=== PATIENT | male | born 1955 | race Caucasian/White ===

== ENCOUNTER → 2019-10-03 | Outpatient (CLI) | payer MEDICARE ==
--- NOTE | 2019-10-03 09:23 | US ---
EXAMINATION TYPE: US scrotum with doppler. Grayscale and color Doppler Duplex imaging performed of t he scrotum. DATE OF EXAM: 10/03/2019 COMPARISON: NONE CLINICAL HISTORY: R97.20 elevated prostate specific antigen, N45.1. on and off pain, no swelling EXAM MEASUREMENTS: TESTICLES: Right Testicle: 2.4 x 3.1 x 2.4 cm Left Testicle: 5.5 x 3.3 x 2.3 cm EPIDIDYMIS HEAD: Right Epididymis: 1.3 cm Left Epididymis: 1.7 cm Doppler performed to assess for testicular vascularity; good bilateral color flow and waveforms are s een. There is no evidence of testicular torsion. Presence of hydroceles: mild fluid noted lateral to bilateral testicles Presence of varicoceles: no IMPRESSION: Trace bilateral hydroceles, otherwise unremarkable exam.
--- NOTE | 2019-10-03 09:28 | US ---
EXAMINATION TYPE: US prostate transrectal DATE OF EXAM: 10/03/2019 COMPARISON: NONE CLINICAL HISTORY: R97.20 elevated prostate specific antigen, N45.1. enlarged gland on digital exam, P SA jumps from 8.7 to 12.7, difficulty with flow, has tried meds but no change This examination was performed using the transrectal probe. EXAM MEASUREMENTS: Gland Size: 5.8 x 5.9 x 5.0cm Volume: 89.9ml Predicted PSA: 10.8 Actual PSA (if available):12.7 Enlarged gland with heterogeneous PZ gland with no discrete focal abnormality noted, IMPRESSION: Enlarged and diffusely heterogenous prostate gland in keeping with benign prostatic hype rplasia. No focal suspicious sonographic mass. Considering the elevated PSA MRI prostate could be con sidered as it is a more sensitive exam for prostate carcinoma. Predicted PSA = volume x 0.12 ng/ml Calculated Volume = 0.5236 x L x W x H
== END | disposition home or self-care (01) ==
LOC: RADUSWWP 06:50
PROVIDERS: ATTEND Internal Medicine
DX: N45.1 Epididymitis (principal); N40.0 Benign prostatic hyperplasia without lower urinary tract symptoms; R97.20 Elevated prostate specific antigen [PSA]
CPT/HCPCS: 76870; 76872; 93975

== ENCOUNTER 2021-12-23 16:04 | Inpatient (IN) | payer MEDICARE ==
[2021-12-23] MEDS ORDERED: HYDROmorphone 0.5 MG/0.5 ML SYRINGE IVP STA (19:14)
[2021-12-23] MEDS ORDERED: SODIUM CHLORIDE 0.9% 500 ML 500 ML IV STA (19:14)
[2021-12-23] MEDS ORDERED: DILTIAZEM DRIP BOLUS FROM BAG 1 MG SOLN IV ONE (19:16)
--- NOTE | 2021-12-23 19:19 | ED ---
General Adult HPI - General Chief complaint: Abdominal Pain Stated complaint: Abd pain Time Seen by Provider: 12/23/21 19:00 Source: patient, RN notes reviewed, old records reviewed Mode of arrival: ambulatory Limitations: no limitations - History of Present Illness Initial comments: 66-year-old male presents with complaints of 2 weeks of diffuse abdominal pain worse right lower quadrant. He states he has had chills but no documented fever. He states he has had diarrhea every day, brown in color, denies any hematochezia or hematemesis. Patient denies any previous abdominal surgeries. He has no chest pain or difficulty in breathing. He does have a history of COPD, hypertension and enlarged prostate. -: week(s) (2) Location: abdomen Radiation: non-radiation Severity scale (1-10): 6 Quality: sharp, other (cramping) Consistency: intermittent Improves with: none Worsens with: none Associated Symptoms: fever/chills, nausea/vomiting, other (diarrhea) Treatments Prior to Arrival: none - Related Data Home Medications Medication Instructions Recorded Confirmed Albuterol Sulfate [Proair Hfa] 2 puff INHALATION RT-QID PRN 12/23/21 12/23/21 Atorvastatin Calcium [Lipitor] 20 mg PO DAILY 12/23/21 12/23/21 Fluticasone Nasal [place] [Flonase 2 spray EA NOSTRIL DAILY 12/23/21 12/23/21 Nasal [place]] Fluticasone Propion/Salmeterol 1 puff INHALATION RT-BID 12/23/21 12/23/21 [Wixela 250-50 Inhub] Loratadine [Claritin] 10 mg PO DAILY 12/23/21 12/23/21 Tamsulosin HCl [Flomax] 0.4 mg PO DAILY 12/23/21 12/23/21 amLODIPine [Norvasc] 10 mg PO DAILY 12/23/21 12/23/21 lisinopriL 40 mg PO DAILY 12/23/21 12/23/21 Allergies Allergy/AdvReac Type Severity Reaction Status Date / Time No Known Allergies Allergy Verified 12/23/21 20:59 Review of Systems ROS Statement: Those systems with pertinent positive or pertinent negative responses have been documented in the HPI. ROS Other: All systems not noted in ROS Statement are negative. Past Medical History Past Medical History: Hyperlipidemia, Hypertension History of Any Multi-Drug Resistant Organisms: None Reported Past Surgical History: No Surgical Hx Reported Smoking Status: Former smoker Past Alcohol Use History: Daily Past Drug Use History: None Reported General Exam Limitations: no limitations General appearance: alert, in no apparent distress Head exam: Present: atraumatic Eye exam: Absent: scleral icterus, conjunctival injection, periorbital swelling ENT exam: Present: normal oropharynx, mucous membranes moist Respiratory exam: Absent: respiratory distress, accessory muscle use Cardiovascular Exam: Present: tachycardia, irregular rhythm (General fibrillation with rapid ventricular rate 141) GI/Abdominal exam: Present: soft, distended, tenderness (diffuse, worse right lower quadrant), hyperactive bowel sounds. Absent: guarding, rebound, rigid Extremities exam: Present: normal capillary refill. Absent: pedal edema Neurological exam: Present: alert, oriented X3 Psychiatric exam: Present: normal affect, normal mood Skin exam: Present: warm, dry, normal color. Absent: cyanosis, diaphoretic, pallor Course Vital Signs 12/23/21 12/23/21 12/23/21 16:25 19:24 20:45 Temperature 97.7 F Pulse Rate 60 156 H 113 H Respiratory 18 18 20 Rate Blood Pressure 107/53 100/70 114/77 O2 Sat by Pulse 96 96 97 Oximetry 12/23/21 12/23/21 21:24 22:00 Temperature Pulse Rate 110 H 82 Respiratory 22 20 Rate Blood Pressure 110/74 107/77 O2 Sat by Pulse 97 97 Oximetry - Reevaluation(s) Reevaluation #1: 12/23/21 19:57 Patient remains afebrile but RVR with a rate of 132. Increased Cardizem drip to 7.5 Time: 19:57 Reevaluation #2: 12/23/21 21:19 Patient's heart rate remains at 120 Cardizem drip increased. Patient states his abdominal pain has resolved at this time. Time: 21:19 EKG Findings - EKG Results: EKG shows: atrial fibrillation (Rapid ventricular rate of 141, QRS 0.89, QTC 0.364) Medical Decision Making - Medical Decision Making Patient presents with 2 weeks of abdominal pain with diarrhea. The patient was brought back to the room he was found to have a heart rate of 140. EKG was done and found to have A. fib with RVR. No history of A. fib Troponin was negative at 0.012, EKG shows A. fib with rate 141. Patient was started on heparin and Cardizem drip for rate control. There is no evidence of leukocytosis and hemoglobin and hematocrit are stable. CT the abdomen shows no aortic aneurysm. No osseous abnormalities. Hepatic steatosis, large prostate and gallstones noted. There is a 13 mm lucent area at L4 may represent a benign hemangioma. There is a 3 mm nonobstructing calculus on the right. Upon reassessment patient's abdomen states that the pain has resolved. Abdomen is soft nontender. His pain may have been related to cholelithiasis. Patient was admitted to the hospital for new onset A. fib. Case discussed with Dr. Coats. - Lab Data Result diagrams: 12/23/21 19:18 12/23/21 19:18 Lab Results 12/23/21 12/23/21 12/23/21 Range/Units 19:18 19:18 19:18 WBC 8.1 (3.8-10.6) k/uL RBC 5.34 (4.30-5.90) m/uL Hgb 17.0 (13.0-17.5) gm/dL Hct 50.9 (39.0-53.0) % MCV 95.3 (80.0-100.0) fL MCH 31.9 (25.0-35.0) pg MCHC 33.5 (31.0-37.0) g/dL RDW 11.8 (11.5-15.5) % Plt Count 146 L (150-450) k/uL MPV 7.2 Neutrophils % 82 % Lymphocytes % 10 % Monocytes % 5 % Eosinophils % 1 % Basophils % 1 % Neutrophils # 6.6 (1.3-7.7) k/uL Lymphocytes # 0.8 L (1.0-4.8) k/uL Monocytes # 0.4 (0-1.0) k/uL Eosinophils # 0.1 (0-0.7) k/uL Basophils # 0.1 (0-0.2) k/uL PT 12.0 (9.0-12.0) sec INR 1.1 (<1.2) APTT 29.8 (22.0-30.0) sec Sodium 136 L (137-145) mmol/L Potassium 4.3 (3.5-5.1) mmol/L Chloride 109 H (98-107) mmol/L Carbon Dioxide 17 L (22-30) mmol/L Anion Gap 10 mmol/L BUN 16 (9-20) mg/dL Creatinine 0.91 (0.66-1.25) mg/dL Est GFR (CKD-EPI)AfAm >90 (>60 ml/min/1.73 sqM) Est GFR (CKD-EPI)NonAf 86 (>60 ml/min/1.73 sqM) Glucose 107 H (74-99) mg/dL Plasma Lactic Acid Fredy (0.7-2.0) mmol/L Calcium 8.8 (8.4-10.2) mg/dL Total Bilirubin 1.8 H (0.2-1.3) mg/dL AST 130 H (17-59) U/L ALT 87 H (4-49) U/L Alkaline Phosphatase 85 (38-126) U/L Troponin I (0.000-0.034) ng/mL Total Protein 7.7 (6.3-8.2) g/dL Albumin 4.4 (3.5-5.0) g/dL Amylase 36 (30-110) U/L Lipase 141 (23-300) U/L 12/23/21 12/23/21 Range/Units 19:18 19:18 WBC (3.8-10.6) k/uL RBC (4.30-5.90) m/uL Hgb (13.0-17.5) gm/dL Hct (39.0-53.0) % MCV (80.0-100.0) fL MCH (25.0-35.0) pg MCHC (31.0-37.0) g/dL RDW (11.5-15.5) % Plt Count (150-450) k/uL MPV Neutrophils % % Lymphocytes % % Monocytes % % Eosinophils % % Basophils % % Neutrophils # (1.3-7.7) k/uL Lymphocytes # (1.0-4.8) k/uL Monocytes # (0-1.0) k/uL Eosinophils # (0-0.7) k/uL Basophils # (0-0.2) k/uL PT (9.0-12.0) sec INR (<1.2) APTT (22.0-30.0) sec Sodium (137-145) mmol/L Potassium (3.5-5.1) mmol/L Chloride (98-107) mmol/L Carbon Dioxide (22-30) mmol/L Anion Gap mmol/L BUN (9-20) mg/dL Creatinine (0.66-1.25) mg/dL Est GFR (CKD-EPI)AfAm (>60 ml/min/1.73 sqM) Est GFR (CKD-EPI)NonAf (>60 ml/min/1.73 sqM) Glucose (74-99) mg/dL Plasma Lactic Acid Fredy 1.1 (0.7-2.0) mmol/L Calcium (8.4-10.2) mg/dL Total Bilirubin (0.2-1.3) mg/dL AST (17-59) U/L ALT (4-49) U/L Alkaline Phosphatase (38-126) U/L Troponin I <0.012 (0.000-0.034) ng/mL Total Protein (6.3-8.2) g/dL Albumin (3.5-5.0) g/dL Amylase (30-110) U/L Lipase (23-300) U/L Critical Care Time Critical Care Time: Yes Total Critical Care Time: 35 (Patient was found to have new onset H fibrillation with a rate of 140. His rate increased to 160 during exam. Patient was started on a Cardizem drip and had to have multiple titrations to obtain rate control. He started on a heparin drip.) Disposition Clinical Impression: Atrial fibrillation with rapid ventricular response, Cholelithiasis Disposition: ADMITTED IP TO THIS HOSP Decision Date: 12/23/21 Decision Time: 20:52
[2021-12-23] MEDS ORDERED: HEPARIN SODIUM 1,000 UN/ML (10ML VL) IV ONE (19:24)
[2021-12-23] MEDS ORDERED: HEPARIN SODIUM 1,000 UN/ML (10ML VL) IV PRN (19:24)
[2021-12-23] MEDS: DILTIAZEM 125 MG in SODIUM CHLORIDE 0.9% 100 ML IV SCH (19:27)
[2021-12-23 19:32] LABS: Basophils # (A) 0.1 k/uL (0-0.2); Basophils % (A) 1 %; Eosinophils # (A) 0.1 k/uL (0-0.7); Eosinophils % (A) 1 %; HCT 50.9 % (39.0-53.0); Lymphocytes # (A) 0.8 k/uL (1.0-4.8); Lymphocytes % (A) 10 %; MCH 31.9 pg (25.0-35.0); MCHC 33.5 g/dL (31.0-37.0); MCV 95.3 fL (80.0-100.0); Mean Platelet Volume 7.2; Monocytes # (A) 0.4 k/uL (0-1.0); Monocytes % (A) 5 %; Neutrophils # (A) 6.6 k/uL (1.3-7.7); Neutrophils % (A) 82 %; Platelet Count 146 k/uL (150-450); RBC 5.34 m/uL (4.30-5.90); RDW 11.8 % (11.5-15.5); WBC 8.1 k/uL (3.8-10.6)
[2021-12-23] MEDS: HEPARIN SOD,PORK IN 0.45% NACL 25,000 UNIT in 0.45% NACL 1 250ML.BAG IV SCH (19:38)
[2021-12-23 19:46] LABS: INR 1.1 (<1.2); Partial Thromboplastin Time 29.8 sec (22.0-30.0)
[2021-12-23 19:48] LABS: ALT 87 U/L (4-49); AST 130 U/L (17-59); African American GFR (CKD) >90 (>60 ml/min/1.73 sqM); Albumin 4.4 g/dL (3.5-5.0); Alkaline Phosphatase 85 U/L (38-126); Amylase 36 U/L (30-110); Anion Gap 10 mmol/L; Blood Urea Nitrogen 16 mg/dL (9-20); Calcium 8.8 mg/dL (8.4-10.2); Carbon Dioxide 17 mmol/L (22-30); Chloride 109 mmol/L (98-107); Glucose 107 mg/dL (74-99); Lipase 141 U/L (23-300); Non-African American GFR(CKD) 86 (>60 ml/min/1.73 sqM); Potassium 4.3 mmol/L (3.5-5.1); Sodium 136 mmol/L (137-145); Total Bilirubin 1.8 mg/dL (0.2-1.3); Total Protein 7.7 g/dL (6.3-8.2)
--- NOTE | 2021-12-23 21:01 | CT ---
EXAMINATION TYPE: CT abdomen pelvis w con CT DLP: 1332.6 mGycm, Automated exposure control for dose reduction was used. DATE OF EXAM: 12/23/2021 8:42 PM COMPARISON: None. CLINICAL INDICATION:Male, 66 years old with history of abdominal pain; Generalized abdominal pain. TECHNIQUE: Standard CT of the abdomen and pelvis following the administration of 100 cc of Isovue 3 00 IV contrast material. Coronal and sagittal reformats were performed. FINDINGS: LOWER CHEST: Unremarkable ABDOMEN LIVER: Diffuse low-attenuation to the liver parenchyma. GALLBLADDER AND BILE DUCTS: Gallstone seen layering dependently. PANCREAS: Unremarkable. SPLEEN: Unremarkable. ADRENAL GLANDS: Unremarkable. KIDNEYS AND URETERS: No evidence of hydronephrosis. Nonobstructing calculus measuring 3 mm on the rig ht and 4 mm. The ureters are unremarkable. PELVIS BLADDER: Unremarkable REPRODUCTIVE: Prostate is enlarged in size measuring 5.9 cm in transverse dimension. ABDOMEN & PELVIS STOMACH AND BOWEL: No evidence of bowel obstruction. PERITONEUM: No evidence of pneumoperitoneum or free fluid. VASCULATURE: No evidence of aortic aneurysm. Mild atherosclerotic calcifications are present througho ut the abdominal aorta and its branches. MUSCULOSKELETAL: No acute osseous abnormalities. 13 mm lucent area within the L4 vertebral body. LYMPH NODES: No gross evidence for lymphadenopathy. SOFT TISSUE/ABDOMINAL WALL: Unremarkable IMPRESSION: 1. No evidence for acute intra-abdominal process to explain the patient's pain. 2. L4 lucent 13 mm area within the vertebral body. Comparisons with priors at outside institution ma y be of benefit for stability. 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 3. Cholelithiasis. 4. Hepatic steatosis. 5. Prostatomegaly correlate serum PSA.
[2021-12-23] MEDS ORDERED: METOPROLOL TARTRATE 5 MG/5 ML VIAL IVP STA (21:13)
[2021-12-23] MEDS ORDERED: ACETAMINOPHEN TAB 325 MG TAB PO PRN (21:26)
[2021-12-23] MEDS ORDERED: HYDROmorphone 0.5 MG/0.5 ML SYRINGE IVP PRN (21:26)
[2021-12-23] MEDS ORDERED: NALOXONE 0.4 MG/ML 1 ML VIAL IV PRN (21:26)
[2021-12-24] MEDS ORDERED: LORATADINE 10 MG TAB PO PRN (09:33)
[2021-12-24] MEDS ORDERED: FLUTICASONE 50MCG/SPRAY NASAL 16GM EA NOSTRIL PRN (09:34)
[2021-12-24] MEDS ORDERED: lisinopriL 20 MG TAB PO SCH ×2 (09:45→12:15)
[2021-12-24 10:02] LABS: Basophils % (A) 0 %; Eosinophils # (A) 0.1 k/uL (0-0.7); Eosinophils % (A) 2 %; HGB 15.8 gm/dL (13.0-17.5); Lymphocytes # (A) 0.7 k/uL (1.0-4.8); Lymphocytes % (A) 12 %; MCH 31.6 pg (25.0-35.0); MCHC 32.9 g/dL (31.0-37.0); MCV 96.2 fL (80.0-100.0); Mean Platelet Volume 7.3; Monocytes # (A) 0.3 k/uL (0-1.0); Monocytes % (A) 5 %; Neutrophils # (A) 4.7 k/uL (1.3-7.7); Neutrophils % (A) 79 %; Platelet Count 135 k/uL (150-450); RBC 4.99 m/uL (4.30-5.90); RDW 11.8 % (11.5-15.5); WBC 5.9 k/uL (3.8-10.6)
[2021-12-24 10:12] LABS: INR 1.1 (<1.2); Partial Thromboplastin Time 38.1 sec (22.0-30.0); Prothrombin Time 11.8 sec (9.0-12.0)
[2021-12-24] MEDS: ATORVASTATIN 20 MG TAB PO SCH (11:08)
[2021-12-24] MEDS: METOPROLOL SUCCINATE (ER) 25 MG TAB.ER.24H PO SCH ×2 (11:08→20:12)
[2021-12-24] MEDS: TAMSULOSIN 0.4 MG CAP.ER.24H PO SCH (11:08)
[2021-12-24] MEDS: amLODIPine 10 MG TAB PO SCH ×3 (11:08→17:29)
[2021-12-24] MEDS ORDERED: ALBUTEROL NEBULIZED 2.5 MG/3 ML INHALATION PRN (12:12)
--- NOTE | 2021-12-24 13:31 | ECHOF ---
Referral Reason:A. fib MEASUREMENTS -------- HEIGHT: 172.7 cm WEIGHT: 89.8 kg BP: 120/63 RVIDd: 3.6 cm (< 3.3) IVSd: 1.4 cm (0.6 - 1.1) LVIDd: 5.3 cm (3.9 - 5.3) LVPWd: 1.4 cm (0.6 - 1.1) IVSs: 1.8 cm LVIDs: 3.5 cm LVPWs: 1.8 cm LA Diam: 3.6 cm (2.7 - 3.8) LAESV Index (A-L): 19.71 ml/m Ao Diam: 4.1 cm (2.0 - 3.7) AV Cusp: 2.5 cm (1.5 - 2.6) MV EXCURSION: 20.651 mm (> 18.000) MV EF SLOPE: 49 mm/s (70 - 150) EPSS: 1.5 cm MV E Bunny: 0.72 m/s MV DecT: 281 ms MV A Bunny: 0.62 m/s MV E/A Ratio: 1.17 AV maxP.13 mmHg AV meanP.47 mmHg AR PHT: 834 ms RAP: 5.00 mmHg RVSP: 31.23 mmHg FINDINGS -------- Resting bradycardia (HR<60bpm). This was a technically adequate study. The left ventricular size is normal. There is moderate concentric left ventricular hypertrophy. O verall left ventricular systolic function is normal with, an EF between 60 - 65 %. The right ventricle is mildly enlarged. Normal LA size by volume 22+/-6 ml/m2. The right atrium is normal in size. Aneurysmal Interatrial septum. The aortic valve is bicuspid. There is mild aortic valve sclerosis. There is mild aortic regurgit ation. There is mild aortic stenosis present. Peak/mean gradient across the Aortic Valve is 18.13 mmHg / 6.47mmHg. The mitral valve is normal. Mild tricuspid regurgitation present. Right ventricular systolic pressure is normal at < 35 mmHg. Trace/mild (physiologic) pulmonic regurgitation. The aortic root is dilated measuring 4.1cm. Normal inferior vena cava with normal inspiratory collapse consistent with estimated right atrial pre ssure of 5 mmHg. There is no pericardial effusion. CONCLUSIONS -------- 1. The left ventricular size is normal. 2. There is moderate concentric left ventricular hypertrophy. 3. Overall left ventricular systolic function is normal with, an EF between 60 - 65 %. 4. The right ventricle is mildly enlarged. 5. Normal LA size by volume 22+/-6 ml/m2. 6. Aneurysmal Interatrial septum. 7. The aortic valve is bicuspid. 8. There is mild aortic valve sclerosis. 9. There is mild aortic regurgitation. 10. There is mild aortic stenosis present. 11. Peak/mean gradient across the Aortic Valve is 18.13mmHg / 6.47mmHg. 12. Mild tricuspid regurgitation present. 13. Trace/mild (physiologic) pulmonic regurgitation. 14. The aortic root is dilated measuring 4.1cm. 15. There is no pericardial effusion. PARTITION SETTER: Mira Frye RDCS
--- NOTE | 2021-12-24 14:25 | P.CRDCN ---
History of Present Illness Consult date: 12/24/21 History of present illness: This is a 66-year-old gentleman with history of hypertension and no history of any cardiac arrhythmias or coronary artery disease, basically came to the emergency room complaining of lower abdominal discomfort. It appears to be has been constant for the last 5 days. Patient hasn't been eating because of the pain hasn't had any bowel movement: since coming here patient was given medication with relief of some of the discomfort. Patient doesn't have any history of chest pain or shortness of breath. No complaints of any palpitation, dizziness or syncope. However, his EKG on admission showed evidence of atrial fibrillation with a rapid and corresponds. Patient was treated with IV Cardizem with conversion to sinus rhythm. Patient is on IV heparin. I'm going to initiate him on by mouth metoprolol and resume his lisinopril. Patient also to go on oral anticoagulant agent if cleared by primary care./Surgical consult regarding his abdominal pain. Echo Cardigan showed normal LV function without any significant valvular abnormalities. He patient has any recurrence of atrial fibrillation, may consider antiarrhythmic medication. We will also get thyroid function studies Review of Systems As per the chart Past Medical History Past Medical History: Hyperlipidemia, Hypertension History of Any Multi-Drug Resistant Organisms: None Reported Past Surgical History: No Surgical Hx Reported Smoking Status: Former smoker Past Alcohol Use History: Daily Past Drug Use History: None Reported Medications and Allergies Home Medications Medication Instructions Recorded Confirmed Type Albuterol Sulfate [Proair Hfa] 2 puff INHALATION RT-QID PRN 12/23/21 12/23/21 History Atorvastatin Calcium [Lipitor] 20 mg PO DAILY 12/23/21 12/23/21 History Fluticasone Nasal [place] [Flonase 2 spray EA NOSTRIL DAILY 12/23/21 12/23/21 History Nasal [place]] Fluticasone Propion/Salmeterol 1 puff INHALATION RT-BID 12/23/21 12/23/21 History [Wixela 250-50 Inhub] Loratadine [Claritin] 10 mg PO DAILY 12/23/21 12/23/21 History Tamsulosin HCl [Flomax] 0.4 mg PO DAILY 12/23/21 12/23/21 History amLODIPine [Norvasc] 10 mg PO DAILY 12/23/21 12/23/21 History lisinopriL 40 mg PO DAILY 12/23/21 12/23/21 History Allergies Allergy/AdvReac Type Severity Reaction Status Date / Time No Known Allergies Allergy Verified 12/23/21 20:59 Physical Exam Vitals: Vital Signs Temp Pulse Pulse Resp BP Pulse Ox 12/24/21 11:00 75 16 125/74 98 12/24/21 09:26 72 18 119/84 96 12/24/21 08:13 62 18 123/68 98 12/24/21 07:00 64 22 120/63 98 12/24/21 06:00 62 18 122/77 99 12/24/21 05:00 52 L 20 114/82 98 12/24/21 04:00 60 20 113/67 98 12/24/21 03:00 59 L 22 108/69 97 12/24/21 02:00 98.2 F 72 22 83/61 97 12/24/21 01:00 76 20 114/79 98 12/24/21 00:00 98.3 F 89 20 125/65 97 12/23/21 23:40 81 20 102/71 97 12/23/21 22:00 82 20 107/77 97 12/23/21 21:24 110 H 22 110/74 97 12/23/21 20:45 113 H 20 114/77 97 12/23/21 20:00 144 H 12/23/21 19:24 156 H 18 100/70 96 12/23/21 16:25 97.7 F 60 18 107/53 96 Intake and Output 12/23/21 12/24/21 12/24/21 22:59 06:59 14:59 Intake Total . 101.662 65.641 Balance 101.662 65.641 Intake: Intake, IV Titration 11. 101.662 65.641 Amount Diltiazem 125 mg In 11.7 28.125 Sodium Chloride 0.9% 100 ml @ 5 MG/HR 5 mls/hr IV .Q24H SHENG Rx#:[id number] Heparin Sod,Pork in 0.45% 73.537 65.641 NaCl 25,000 unit In 0.45 % NaCl 1 250ml.bag @ 11. 14 UNITS/KG/HR 10.005 mls /hr IV .Q24H SHENG Rx#: [id number] Other: Weight 89.811 kg GENERAL EXAM: Patient is alert and oriented and doesn't appear to be in any acute distress HEENT: Normocephalic. Normal reaction of pupils, equal size, normal range of extraocular motion. No erythema or exudates in the throat. NECK: No masses, no nuchal rigidity. CHEST: No chest wall deformity. LUNGS: Equal air entry with no crackles or wheeze. HEART: S1 and S2 normal with no audible mumurs or gallops. Regular rhythm, femorals equal on both sides.. ABDOMEN: No hepatosplenomegaly, normal bowel sounds, no guarding or rigidity. SKIN: No rashes CENTRAL NERVOUS SYSTEM: No focal deficits. EXTREMITIES: No cyanosis, clubbing or edema. Results 12/24/21 09:48 12/23/21 19:18 Cardiac Enzymes 12/23/21 12/23/21 12/24/21 Range/Units 19:18 19:18 09:53 AST 130 H (17-59) U/L Troponin I <0.012 <0.012 (0.000-0.034) ng/mL Coagulation 12/23/21 12/24/21 12/24/21 Range/Units 19:18 01:24 09:48 PT 12.0 11.8 (9.0-12.0) sec APTT 29.8 75.2 H 38.1 H (22.0-30.0) sec CBC 12/23/21 12/24/21 Range/Units 19:18 09:48 WBC 8.1 5.9 (3.8-10.6) k/uL RBC 5.34 4.99 (4.30-5.90) m/uL Hgb 17.0 15.8 (13.0-17.5) gm/dL Hct 50.9 48.0 (39.0-53.0) % Plt Count 146 L 135 L (150-450) k/uL Comprehensive Metabolic Panel 12/23/21 Range/Units 19:18 Sodium 136 L (137-145) mmol/L Potassium 4.3 (3.5-5.1) mmol/L Chloride 109 H (98-107) mmol/L Carbon Dioxide 17 L (22-30) mmol/L BUN 16 (9-20) mg/dL Creatinine 0.91 (0.66-1.25) mg/dL Glucose 107 H (74-99) mg/dL Calcium 8.8 (8.4-10.2) mg/dL AST 130 H (17-59) U/L ALT 87 H (4-49) U/L Alkaline Phosphatase 85 (38-126) U/L Total Protein 7.7 (6.3-8.2) g/dL Albumin 4.4 (3.5-5.0) g/dL Current Medications Generic Name Dose Route Start Last Admin Trade Name Freq PRN Reason Stop Dose Admin Acetaminophen 650 mg 12/23/21 21:26 Acetaminophen Tab 325 Mg Tab PO Q6HR PRN Mild Pain or Fever > 100.5 Albuterol Sulfate 2.5 mg 12/24/21 12:12 Albuterol Nebulized 2.5 Mg/3 Ml INHALATION RT-QID PRN Shortness Of Breath Amlodipine Besylate 10 mg 12/24/21 12:15 Amlodipine 10 Mg Tab PO DAILY [facility] Atorvastatin Calcium 20 mg 12/24/21 09:45 12/24/21 11:08 Atorvastatin 20 Mg Tab PO 20 mg DAILY [facility] Administration Budesonide/Formoterol Fumarate 2 puff 12/24/21 13:00 Symbicort 80-4.5 Mcg Inhaler INHALATION RT-BID [facility] Fluticasone Propionate 2 spray 12/24/21 09:34 Fluticasone 50mcg/[place] Nasal 16gm EA NOSTRIL DAILY PRN Allergy Symptoms Heparin Sodium (Porcine) 0 unit 12/23/21 19:24 12/24/21 11:08 Heparin Sodium 1,000 Un/Ml (10ml Vl) IV 2,225 unit PER PROTOCOL PRN Administration Low PTT Protocol Hydromorphone HCl 0.5 mg 12/23/21 21:26 Hydromorphone 0.5 Mg/0.5 Ml Syringe IVP Q3HR PRN Moderate Pain Diltiazem HCl 125 mg/ Sodium 125 mls @ 5 mls/hr 12/23/21 19:30 12/24/21 00:45 Chloride IV 0 mg/hr .Q24H SHENG 0 mls/hr Infusion 5 MG/HR Heparin Sodium/Sodium Chloride 250 mls @ 10.005 mls/hr 12/23/21 19:30 12/24/21 11:11 25,000 unit/ Sodium Chloride IV 10.91 units/kg/hr .Q24H SHENG 9.798 mls/hr Titration Protocol 11.14 UNITS/KG/HR Lisinopril 40 mg 12/25/21 09:00 Lisinopril 20 Mg Tab PO DAILY [facility]ENG Loratadine 10 mg 12/24/21 09:33 12/24/21 11:08 Loratadine 10 Mg Tab PO 10 mg DAILY PRN Administration Allergy Symptoms Metoprolol Succinate 25 mg 12/24/21 10:30 12/24/21 11:08 Metoprolol Succinate (Er) 25 Mg Tab.Er.24h PO 25 mg BID SHENG Administration Naloxone HCl 0.2 mg 12/23/21 21:26 Naloxone 0.4 Mg/Ml 1 Ml Vial IV Q2M PRN Opioid Reversal Tamsulosin HCl 0.4 mg 12/24/21 09:45 12/24/21 11:08 Tamsulosin 0.4 Mg Cap.Er.24h PO 0.4 mg [id number] SHENG Administration Intake and Output 12/23/21 12/24/21 12/24/21 22:59 06:59 14:59 Intake Total 11.917 101.662 65.641 Balance 11.917 101.662 65.641 Intake: Intake, IV Titration 11.917 101.662 65.641 Amount Diltiazem 125 mg In 11.917 28.125 Sodium Chloride 0.9% 100 ml @ 5 MG/HR 5 mls/hr IV .Q24H SHENG Rx#:[id number] Heparin Sod,Pork in 0.45% 73.537 65.641 NaCl 25,000 unit In 0.45 % NaCl 1 250ml.bag @ 11. 14 UNITS/KG/HR 10.005 mls /hr IV .Q24H SHENG Rx#: [id number] Other: Weight 89.811 kg 12/24/21 09:48 12/23/21 19:18 EKG Interpretations (text) Initial EKG showed A. fib with rapid ventricular response Assessment and Plan (1) Abdominal pain Current Visit: Yes Status: Acute Code(s): R10.9 - UNSPECIFIED ABDOMINAL PAIN SNOMED Code(s): 83378240 (2) Atrial fibrillation with rapid ventricular response Current Visit: Yes Status: Acute Code(s): I48.91 - UNSPECIFIED ATRIAL FIBRILLATION SNOMED Code(s): 695336268143103 (3) Cholelithiasis Current Visit: Yes Status: Acute Code(s): K80.20 - CALCULUS OF GALLBLADDER W/O CHOLECYSTITIS W/O OBSTRUCTION SNOMED Code(s): 795901059 (4) Abnormal liver enzymes Current Visit: Yes Status: Acute Code(s): R74.8 - ABNORMAL LEVELS OF OTHER SERUM ENZYMES SNOMED Code(s): 196159306 Plan: From a cardiac standpoint we'll treat him with beta brit and also oral anticoagulant agent. He denies any recurrence of atrial fibrillation, we will consider antiarrhythmic treatment. He patient to congestive have abdominal pain, consider surgical consult
--- NOTE | 2021-12-24 14:39 | P.HPIM ---
History of Present Illness H&P Date: 12/24/21 Chief Complaint: Dizzy lightheaded This is a pleasant 66-year-old patient of Dr. Beatriz Cantu. Chronic stable medical conditions include hypertension, hyperlipidemia, COPD, BPH. Patient is accompanied by his daughter. Patient for about 2 months been complaining of lower abdominal pain. Feels bloated. Prior to that he was having a bowel movement about once or twice a day. Now is down to small amounts of Bradley's like bowels. Occasional diarrhea. Abdomen feels a bit bloated. No nausea vomiting. Patient lost about 2024 pounds. Patient is afraid to eat. Also noticed to be dizzy lightheaded. In the ER patient was found to be in atrial fibrillation. Started on IV Cardizem and IV heparin. Review of systems: GEN.: Weight loss EYES: None HEENT: None NECK: None RESPIRATORY: None CARDIOVASCULAR: As above GASTROINTESTINAL: As above GENITOURINARY: None MUSCULOSKELETAL: None LYMPHATICS: None HEMATOLOGICAL: None PSYCHIATRY: None NEUROLOGICAL: None Past medical history to include: Hypertension, hyperlipidemia, COPD, BPH Social history: Alone. Retired from [employer]. Smoked a pack and a half a day for close to 40 years stopped about 10 years ago. Family history: Reviewed, noncontributory to presentation Physical examination: VITAL SIGNS: 97.7, 144, 18, 100/70, 96% room air GENERAL: BMI 30.1, sitting up in a chair, awake, not in distress. EYES: Pupils equal. Conjunctiva normal. HEENT: External appearance of nose and ears normal, oral cavity grossly normal. NECK: JVD not raised; masses not palpable. HEART: Heart sounds irregular; no edema. LUNGS: Respiratory rate normal; decreased breath sounds. ABDOMEN: Soft, some distention. Mild lower abdominal tenderness. No guarding rigidity., liver spleen not palpable, no masses palpable. PSYCH: Alert and oriented x3; mood and affect normal. MUSCULOSKELETAL:No Clubbing/cyanosis;muscles-grossly intact, evidence of OA NEUROLOGICAL: Cranial nerves grossly intact; no facial asymmetry, power and sensation grossly intact. LYMPHATICS: No lymph nodes palpable in the axilla and neck INVESTIGATIONS, reviewed in the clinical context: White count 5.9 hemoglobin 15.8 platelets 135 potassium 4.3 creatinine 0.91 Troponin I less than 0.012 TSH 1.350 EKG tracing personally reviewed by me-atrial fibrillation. Rate 141 2-D echocardiogram: Moderate concentric LVH. EF 60-65%. Computed tomography scan abdomen and pelvis:: Gallstone. Right kidney stone. Large prostate. Assessment and plan: -New onset of atrial fibrillation rate uncontrolled IV heparin, IV Cardizem. Toprol-XL 25 mg twice a day added. -Essential hypertension Norvasc 10 mg a day, Zestril 40 mg a day, Toprol-XL 25 mg twice a day -Hyperlipidemia Lipitor 20 mg a day -COPD in an ex-smoker Symbicort 80/4.52 puffs twice a day. Albuterol when necessary -BPH Flomax 0.4 mg a day -2 months of lower abdominal pain. Change in bowel pattern. Decrease appetite. Weight loss. Patient will need to the coloscopy. Consult surgery. -IV heparin monitoring Follow PTT Care was discussed with the patient and daughter the bedside. Telemetry. Started on Toprol-XL. Home medications to continue. IV Cardizem and IV heparin drip. Given the complexity and severity of patient's condition expect the patient to be in the hospital at least for 2 overnights Past Medical History Past Medical History: Hyperlipidemia, Hypertension History of Any Multi-Drug Resistant Organisms: None Reported Past Surgical History: No Surgical Hx Reported Smoking Status: Former smoker Past Alcohol Use History: Daily Past Drug Use History: None Reported Medications and Allergies Home Medications Medication Instructions Recorded Confirmed Type Albuterol Sulfate [Proair Hfa] 2 puff INHALATION RT-QID PRN 12/23/21 12/23/21 History Atorvastatin Calcium [Lipitor] 20 mg PO DAILY 12/23/21 12/23/21 History Fluticasone Nasal [place] [Flonase 2 spray EA NOSTRIL DAILY 12/23/21 12/23/21 History Nasal [place]] Fluticasone Propion/Salmeterol 1 puff INHALATION RT-BID 12/23/21 12/23/21 History [Wixela 250-50 Inhub] Loratadine [Claritin] 10 mg PO DAILY 12/23/21 12/23/21 History Tamsulosin HCl [Flomax] 0.4 mg PO DAILY 12/23/21 12/23/21 History amLODIPine [Norvasc] 10 mg PO DAILY 12/23/21 12/23/21 History lisinopriL 40 mg PO DAILY 12/23/21 12/23/21 History Allergies Allergy/AdvReac Type Severity Reaction Status Date / Time No Known Allergies Allergy Verified 12/23/21 20:59 Physical Exam Vitals: Vital Signs Temp Pulse Pulse Resp BP Pulse Ox 12/24/21 11:00 75 16 125/74 98 12/24/21 09:26 72 18 119/84 96 12/24/21 08:13 62 18 123/68 98 12/24/21 07:00 64 22 120/63 98 12/24/21 06:00 62 18 122/77 99 12/24/21 05:00 52 L 20 114/82 98 12/24/21 04:00 60 20 113/67 98 12/24/21 03:00 59 L 22 108/69 97 12/24/21 02:00 98.2 F 72 22 83/61 97 12/24/21 01:00 76 20 114/79 98 12/24/21 00:00 98.3 F 89 20 125/65 97 12/23/21 23:40 81 20 102/71 97 12/23/21 22:00 82 20 107/77 97 12/23/21 21:24 110 H 22 110/74 97 12/23/21 20:45 113 H 20 114/77 97 12/23/21 20:00 144 H 12/23/21 19:24 156 H 18 100/70 96 12/23/21 16:25 97.7 F 60 18 107/53 96 Intake and Output 12/23/21 12/24/21 12/24/21 22:59 06:59 14:59 Intake Total . 101.662 65.641 Balance 101.662 65.641 Intake: Intake, IV Titration 11. 101.662 65.641 Amount Diltiazem 125 mg In 11.7 28.125 Sodium Chloride 0.9% 100 ml @ 5 MG/HR 5 mls/hr IV .Q24H SHENG Rx#:[id number] Heparin Sod,Pork in 0.45% 73.537 65.641 NaCl 25,000 unit In 0.45 % NaCl 1 250ml.bag @ 11. 14 UNITS/KG/HR 10.005 mls /hr IV .Q24H SHENG Rx#: [id number] Other: Weight 89.811 kg Results CBC & Chem 7: 12/24/21 09:48 12/23/21 19:18 Labs: Abnormal Lab Results - Last 24 Hours (Table) 12/23/21 12/23/21 12/24/21 Range/Units 19:18 19:18 01:24 Plt Count 146 L (150-450) k/uL Lymphocytes # 0.8 L (1.0-4.8) k/uL APTT 75.2 H (22.0-30.0) sec Sodium 136 L (137-145) mmol/L Chloride 109 H (98-107) mmol/L Carbon Dioxide 17 L (22-30) mmol/L Glucose 107 H (74-99) mg/dL Total Bilirubin 1.8 H (0.2-1.3) mg/dL AST 130 H (17-59) U/L ALT 87 H (4-49) U/L 12/24/21 12/24/21 Range/Units 09:48 09:48 Plt Count 135 L (150-450) k/uL Lymphocytes # 0.7 L (1.0-4.8) k/uL APTT 38.1 H (22.0-30.0) sec Sodium (137-145) mmol/L Chloride (98-107) mmol/L Carbon Dioxide (22-30) mmol/L Glucose (74-99) mg/dL Total Bilirubin (0.2-1.3) mg/dL AST (17-59) U/L ALT (4-49) U/L
--- NOTE | 2021-12-24 15:09 | XR ---
EXAMINATION TYPE: XR chest 2V DATE OF EXAM: 12/24/2021 COMPARISON: NONE HISTORY: Weight loss TECHNIQUE: 2 view FINDINGS: Heart is normal. Lungs are clear of infiltrate. There are no hilar masses. Thoracic aorta i s atheromatous. There are chest leads. Costophrenic angles are clear. IMPRESSION: No active cardiomegaly disease. Normal heart.
[2021-12-24] MEDS: SYMBICORT 80-4.5 MCG INHALER INHALATION SCH ×2 (15:56→19:35)
[2021-12-24] MEDS: DILTIAZEM 125 MG in SODIUM CHLORIDE 0.9% 100 ML IV SCH (18:25)
[2021-12-24] MEDS: HEPARIN SOD,PORK IN 0.45% NACL 25,000 UNIT in 0.45% NACL 1 250ML.BAG IV SCH (18:35)
[2021-12-24 20:57] LABS: Appearance,Urine Clear (Clear); Bilirubin,Urine Negative (Negative); Blood,Urine Negative (Negative); Color,Urine Yellow; Glucose,Urine (UA) Negative (Negative); Ketones,Urine Negative (Negative); Leukocyte Esterase,Urine Negative (Negative); Mucus,Urine Rare /hpf; Nitrite,Urine Negative (Negative); Protein,Urine 1+ (Negative); RBC,Urine 1 /hpf (0-5); Specific Gravity,Urine 1.023 (1.001-1.035); Squamous Epithelial Cell,Urine 1 /hpf (0-4); WBC,Urine 2 /hpf (0-5)
[2021-12-25] MEDS: SYMBICORT 80-4.5 MCG INHALER INHALATION SCH ×2 (08:26→19:17)
--- NOTE | 2021-12-25 09:12 | P.GSCN ---
History of Present Illness Consult date: 12/25/21 Reason for Consult: Abdominal pain History of present illness: 66-year-old male comes to the ER complaining of 2-3 months of mid and lower abdo vahe pain. Complaints of bloating. Says he is not eating as much as he used to. Intermittent diarrhea and constipation. No rectal bleeding. Patient has lost weight. He was found to be in atrial fibrillation in the ER. Being seen by cardiology. CAT scan reviewed. Patient does have a gallstone present without inflammatory changes of the gallbladder. Bowel looks normal. Denies rectal bleeding or melena. Says his last colonoscopy was many years ago. He says his pain today is mostly gone. Review of Systems The patient denies any acute changes in vision or hearing, no dysphagia or odynophagia, no chest pain or shortness of breath, no dysuria or hematuria, no headache, no runny nose, no rectal bleeding or melena, no unexplained weight loss Past Medical History Past Medical History: Hyperlipidemia, Hypertension History of Any Multi-Drug Resistant Organisms: None Reported Past Surgical History: No Surgical Hx Reported Additional Past Surgical History / Comment(s): gallstones removed, vasectomy Past Anesthesia/Blood Transfusion Reactions: No Reported Reaction Smoking Status: Former smoker Past Alcohol Use History: Daily Past Drug Use History: None Reported - Past Family History Mother Family Medical History: Cancer Brother(s) Family Medical History: Liver Disease Medications and Allergies Home Medications Medication Instructions Recorded Confirmed Type Albuterol Sulfate [Proair Hfa] 2 puff INHALATION RT-QID PRN 12/23/21 12/23/21 History Atorvastatin Calcium [Lipitor] 20 mg PO DAILY 12/23/21 12/23/21 History Fluticasone Nasal [place] [Flonase 2 spray EA NOSTRIL DAILY 12/23/21 12/23/21 H istory Nasal [place]] Fluticasone Propion/Salmeterol 1 puff INHALATION RT-BID 12/23/21 12/23/21 History [Wixela 250-50 Inhub] Loratadine [Claritin] 10 mg PO DAILY 12/23/21 12/23/21 History Tamsulosin HCl [Flomax] 0.4 mg PO DAILY 12/23/21 12/23/21 History amLODIPine [Norvasc] 10 mg PO DAILY 12/23/21 12/23/21 History lisinopriL 40 mg PO DAILY 12/23/21 12/23/21 History Allergies Allergy/AdvReac Type Severity Reaction Status Date / Time No Known Allergies Allergy Verified 12/23/21 20:59 Surgical - Exam Vital Signs Temp Pulse Resp BP Pulse Ox 97.7 F 60 18 107/53 96 12/23/21 16:25 12/23/21 16:25 12/23/21 16:25 12/23/21 16:25 12/23/21 16:25 Physical exam: General: Well-developed, well-nourished HEENT: Normocephalic, sclerae nonicteric Abdomen: Nontender, nondistended Extremities: No edema Neuro: Alert and oriented Results - Labs 12/24/21 09:48 12/23/21 19:18 Abnormal Lab Results - Last 24 Hours (Table) 12/24/21 12/24/21 12/24/21 Range/Units 09:48 09:48 17:00 Plt Count 135 L (150-450) k/uL Lymphocytes # 0.7 L (1.0-4.8) k/uL APTT 38.1 H 49.6 H (22.0-30.0) sec Urine Protein (Negative) Urine Mucus (None) /hpf 12/24/21 Range/Units 20:33 Plt Count (150-450) k/uL Lymphocytes # (1.0-4.8) k/uL APTT (22.0-30.0) sec Urine Protein 1+ H (Negative) Urine Mucus Rare H (None) /hpf Thyroid panel 12/23/21 Range/Units 19:18 TSH 1.350 (0.465-4.680) mIU/L Pituitary panel 12/23/21 Range/Units 19:18 TSH 1.350 (0.465-4.680) mIU/L Assessment and Plan (1) Abdominal pain Narrative/Plan: 66-year-old male with complains of mid and lower abdominal pain. Patient with diagnostics demonstrating elevated liver enzymes. He does have a gallstone. Certainly if the patient's symptoms are not consistent with a biliary source of pain at this time. Patient says his pain is improved. He likely could be discharged with further workup as an outpatient. Would recommend colonoscopy with possible EGD as an outpatient. Continue regular diet. Current Visit: Yes Status: Acute Code(s): R10.9 - UNSPECIFIED ABDOMINAL PAIN SNOMED Code(s): 63342198
[2021-12-25] MEDS: TAMSULOSIN 0.4 MG CAP.ER.24H PO SCH (09:39)
[2021-12-25] MEDS: ATORVASTATIN 20 MG TAB PO SCH (09:39)
[2021-12-25] MEDS: lisinopriL 20 MG TAB PO SCH (09:39)
[2021-12-25] MEDS: amLODIPine 10 MG TAB PO SCH (09:39)
[2021-12-25] MEDS ORDERED: APIXABAN 5 MG TAB PO SCH (11:00)
[2021-12-25] MEDS: METOPROLOL SUCCINATE (ER) 25 MG TAB.ER.24H PO SCH ×2 (11:42→22:12)
--- NOTE | 2021-12-25 12:34 | P.PN ---
Subjective Progress Note Date: 12/25/21 History of present illness: This is a 66-year-old gentleman with history of hypertension and no history of any cardiac arrhythmias or coronary artery disease, basically came to the emergency room complaining of lower abdominal discomfort. It appears to be has been constant for the last 5 days. Patient hasn't been eating because of the pain hasn't had any bowel movement: since coming here patient was given medication with relief of some of the discomfort. Patient doesn't have any history of chest pain or shortness of breath. No complaints of any palpitation, dizziness or syncope. However, his EKG on admission showed evidence of atrial fibrillation with a rapid and corresponds. Patient was treated with IV Cardizem with conversion to sinus rhythm. Patient is on IV heparin. I'm going to init iate him on by mouth metoprolol and resume his lisinopril. Patient also to go on oral anticoagulant agent if cleared by primary care./Surgical consult regarding his abdominal pain. Echo Cardigan showed normal LV function without any significant valvular abnormalities. He patient has any recurrence of atrial fibrillation, may consider antiarrhythmic medication. We will also get thyroid function studies 12/25/2021 Patient denies having any chest pain or shortness of breath. monitor tech sinus rhythm mostly in the 60s. He has been seen by Dr. Adams with plan for outpatient workup for abdominal pain and elevated liver function test. Patient's abdominal pain is improved today. Patient will be started on eliquis and heparin drip discontinued and continue on Toprol-XL 25 mg twice daily. Chest x-ray reveals no active cardiopulmonary disease. Physical examination: GENERAL EXAM: Patient is alert and oriented and doesn't appear to be in any acute distress HEENT: Normocephalic. Normal reaction of pupils, equal size. NECK: No masses, no nuchal rigidity. CHEST: No chest wall deformity. LUNGS: Equal air entry with no crackles or wheeze. HEART: S1 and S2 normal with no audible mumurs or gallops. Regular rhythm, femorals equal on both sides.. ABDOMEN: No hepatosplenomegaly, normal bowel sounds, no guarding or rigidity. SKIN: No rashes CENTRAL NERVOUS SYSTEM: No focal deficits. EXTREMITIES: No cyanosis, clubbing or edema. Assessment: A. fib with RVR, paroxysmal atrial fibrillation new onset Abdominal pain Abnormal liver function test Plan: Heparin drip will be discontinued and patient started on eliquis 5 mg twice daily Continue Toprol-XL 25 mg twice daily, lisinopril 40 mg daily, Lipitor 20 mg daily, Norvasc 10 mg daily Patient is cleared for discharge from cardiology with follow-up in the office in one week with Dr. Riley Thank you kindly for this consultation. Nurse practitioner note has been reviewed, I agree with documented findings and plan of care. Patient was seen and examined. Objective - Vital Signs Vital signs: Vital Signs Temp 98.4 F 12/25/21 11:48 Pulse 65 12/25/21 11:48 Resp 17 12/25/21 11:48 BP 108/68 12/25/21 11:48 Pulse Ox 97 12/25/21 11:48 Intake & Output 12/24/21 12/25/21 12/25/21 18:59 06:59 18:59 Intake Total 798.146 480 240 Balance 798.146 480 240 Weight 89.811 kg Intake: Intake, IV Titration 138.146 Amount Heparin Sod,Pork in 0.45% 138.146 NaCl 25,000 unit In 0.45 % NaCl 1 250ml.bag @ 11. 14 UNITS/KG/HR 10.005 mls /hr IV .Q24H SHENG Rx#: [id number] Oral 660 480 240 Other: Voiding Method Toilet # Voids 1 1 - Labs CBC & Chem 7: 12/24/21 09:48 12/23/21 19:18 Labs: Abnormal Lab Results - Last 24 Hours (Table) 12/24/21 12/24/21 12/25/21 Range/Units 17:00 20:33 10:38 APTT 49.6 H 43.6 H (22.0-30.0) sec Urine Protein 1+ H (Negative) Urine Mucus Rare H (None) /hpf
--- NOTE | 2021-12-25 15:28 | P.PN ---
Progress Note - Text Progress Note Date: 12/25/21 Chief Complaint: Dizzy lightheaded This is a pleasant 66-year-old patient of Dr. Beatriz Cantu. Chronic stable medical conditions include hypertension, hyperlipidemia, COPD, BPH. Patient is accompanied by his daughter. Patient for about 2 months been complaining of lower abdominal pain. Feels bloated. Prior to that he was having a bowel movement about once or twice a day. Now is down to small amounts of Bradley's like bowels. Occasional diarrhea. Abdomen feels a bit bloated. No nausea vomiting. Patient lost about 2024 pounds. Patient is afraid to eat. Also noticed to be dizzy lightheaded. In the ER patient was found to be in atrial fibrillation. Started on IV Cardizem and IV heparin. December 25: Patient back in sinus rhythm. On eliquis. Discussed with Dr. Doss. proceed with endoscopy. Active Medications Acetaminophen (Acetaminophen Tab 325 Mg Tab) 650 mg PO Q6HR PRN PRN Reason: Mild Pain or Fever > 100.5 Albuterol Sulfate (Albuterol Nebulized 2.5 Mg/3 Ml) 2.5 mg INHALATION RT-QID PRN PRN Reason: Shortness Of Breath Amlodipine Besylate (Amlodipine 10 Mg Tab) 10 mg PO DAILY [facility] Last Admin: 12/25/21 09:39 Dose: 10 mg Documented by: Apixaban (Apixaban 5 Mg Tab) 5 mg PO BID [facility]; Protocol Last Admin: 12/25/21 11:24 Dose: 5 mg Documented by: Atorvastatin Calcium (Atorvastatin 20 Mg Tab) 20 mg PO DAILY [facility] Last Admin: 12/25/21 09:39 Dose: 20 mg Documented by: Budesonide/Formoterol Fumarate (Symbicort 80-4.5 Mcg Inhaler) 2 puff INHALATION RT-BID [facility] Last Admin: 12/25/21 08:26 Dose: Not Given Documented by: Fluticasone Propionate (Fluticasone 50mcg/[place] Nasal 16gm) 2 spray EA NOSTRIL DAILY PRN PRN Reason: Allergy Symptoms Hydromorphone HCl (Hydromorphone 0.5 Mg/0.5 Ml Syringe) 0.5 mg IVP Q3HR PRN PRN Reason: Moderate Pain Lisinopril (Lisinopril 20 Mg Tab) 40 mg PO DAILY [facility] Last Admin: 12/25/21 09:39 Dose: 40 mg Documented by: Loratadine (Loratadine 10 Mg Tab) 10 mg PO DAILY PRN PRN Reason: Allergy Symptoms Last Admin: 12/24/21 11:08 Dose: 10 mg Documented by: Metoprolol Succinate (Metoprolol Succinate (Er) 25 Mg Tab.Er.24h) 25 mg PO BID [facility] Last Admin: 12/25/21 11:42 Dose: Not Given Documented by: Naloxone HCl (Naloxone 0.4 Mg/Ml 1 Ml Vial) 0.2 mg IV Q2M PRN PRN Reason: Opioid Reversal Tamsulosin HCl (Tamsulosin 0.4 Mg Cap.Er.24h) 0.4 mg PO PC-BRKFST [facility] Last Admin: 12/25/21 09:39 Dose: 0.4 mg Documented by: Past medical history to include: Hypertension, hyperlipidemia, COPD, BPH Social history: Alone. Retired from [employer]. Smoked a pack and a half a day for close to 40 years stopped about 10 years ago. Family history: Reviewed, noncontributory to presentation Physical examination: VITAL SIGNS: 98.4, 65, 17, 108/68, 97% room air GENERAL: sitting up in a chair, comfortable EYES: Pupils equal. Conjunctiva normal. HEENT: External appearance of nose and ears normal, oral cavity grossly normal. NECK: JVD not raised; masses not palpable. HEART: Heart sounds irregular; no edema. LUNGS: Respiratory rate normal; decreased breath sounds. ABDOMEN: Soft, some distention. Mild lower abdominal tenderness. No guarding rigidity., liver spleen not palpable, no masses palpable. PSYCH: Alert and oriented x3; mood and affect normal. MUSCULOSKELETAL:No Clubbing/cyanosis;muscles-grossly intact, evidence of OA INVESTIGATIONS, reviewed in the clinical context: White count 5.9 hemoglobin 15.8 platelets 135 potassium 4.3 creatinine 0.91 Troponin I less than 0.012 TSH 1.350 EKG tracing personally reviewed by me-atrial fibrillation. Rate 141 2-D echocardiogram: Moderate concentric LVH. EF 60-65%. Computed tomography scan abdomen and pelvis:: Gallstone. Right kidney stone. Large prostate. Chest x-ray film personally reviewed by me-no infiltrates Assessment and plan: -Paroxysmal atrial fibrillation rate now in sinus rhythm. Toprol-XL 25 mg twice a day . Eliquis -Essential hypertension Norvasc 10 mg a day, Zestril 40 mg a day, Toprol-XL 25 mg twice a day -Hyperlipidemia Lipitor 20 mg a day -COPD in an ex-smoker Symbicort 80/4.52 puffs twice a day. Albuterol when necessary -BPH Flomax 0.4 mg a day -2 months of lower abdominal pain. Change in bowel pattern. Decrease appetite. Weight loss. Patient will need to the coloscopy. Consult surgery. -IV heparin monitoring: Discontinue Follow PTT Discussed with Dr. Doss. He'll proceed with endoscopy on Sunday. In the meantime we'll hold eliquis and switched to Lovenox 80 every 12.
[2021-12-25] MEDS: ENOXAPARIN 80 MG/0.8 ML SYRINGE SQ SCH (20:24)
[2021-12-26] MEDS ORDERED: PEG 3350-NA SULF,BICARB,CL/KCL 4,000 ML BOTTLE PO ONE (08:11)
[2021-12-26] MEDS: SYMBICORT 80-4.5 MCG INHALER INHALATION SCH ×2 (08:35→19:49)
[2021-12-26] MEDS: ENOXAPARIN 80 MG/0.8 ML SYRINGE SQ SCH ×2 (08:56→20:24)
[2021-12-26] MEDS: lisinopriL 20 MG TAB PO SCH (08:56)
[2021-12-26] MEDS: amLODIPine 10 MG TAB PO SCH (08:56)
[2021-12-26] MEDS: TAMSULOSIN 0.4 MG CAP.ER.24H PO SCH (08:56)
[2021-12-26] MEDS: ATORVASTATIN 20 MG TAB PO SCH (08:56)
[2021-12-26] MEDS: METOPROLOL SUCCINATE (ER) 25 MG TAB.ER.24H PO SCH ×2 (08:57→21:36)
--- NOTE | 2021-12-26 11:29 | P.PN ---
Subjective Progress Note Date: 12/26/21 CHIEF COMPLAINT: Lower abdominal pain HISTORY OF PRESENT ILLNESS: Patient reports improvement in his mid to lower abdominal pain at this time. However, he does report that the pain can be intermittent. He reports that he feels still a little bloated. Denies any nausea vomiting. Denies any black or maroon-colored stools. He denies any nausea or vomiting. Currently on a clear liquid diet. Patient currently has been in sinus bradycardia. He is followed for cardiology. Cardiology had cleared him for discharge. Currently on Lovenox for anticoagulation. He denies any right upper quadrant abdominal pain. PHYSICAL EXAM: VITAL SIGNS: Reviewed. GENERAL: Well-developed in no acute distress. HEENT: No sclera icterus. Extraocular movements grossly intact. Moist buccal mucosa. Head is atraumatic, normocephalic. ABDOMEN: Soft. Mildly distended nontender NEUROLOGIC: Alert and oriented. Cranial nerves II through XII grossly intact. ASSESSMENT: 1. Mid and lower abdominal pain 2. Elevated liver enzymes 3. Cholelithiasis PLAN: -Patient scheduled for EGD and colonoscopy tomorrow, 12/27/[address] Adams -Harjinder Heredia prep -Okay for clear liquids today -Nothing by mouth after midnight Physician Shank Skinner note has been reviewed by physician. Signing provider agrees with the documented findings, assessment, and plan of care. I have personally seen and examined the patient, reviewed the HOME DEMONSTRATOR /PAs history, exam and MDM and agree with the assessment and plan as written. Based on total visit time, I have performed more than 50% of the visit. As above: Patient with minimal pain. Had diarrhea this morning. Will proceed with upper and lower endoscopy tomorrow. Objective - Vital Signs Vital signs: Vital Signs Temp 97.8 F 12/26/21 08:06 Pulse 52 L 12/26/21 08:06 Resp 16 12/26/21 08:06 BP 130/72 12/26/21 08:06 Pulse Ox 97 12/26/21 08:06 Intake & Output 12/25/21 12/26/21 12/26/21 18:59 06:59 18:59 Intake Total 480 240 Balance 480 240 Intake: Oral 480 240 Other: Voiding Method Toilet Toilet Toilet # Voids 3 1 - Labs CBC & Chem 7: 12/24/21 09:48 12/23/21 19:18 Labs: Abnormal Lab Results - Last 24 Hours (Table) 12/25/21 Range/Units 10:38 APTT 43.6 H (22.0-30.0) sec
--- NOTE | 2021-12-26 12:03 | P.PN ---
Progress Note - Text Progress Note Date: 12/26/21 Chief Complaint: Dizzy lightheaded This is a pleasant 66-year-old patient of Dr. Beatriz Cantu. Chronic stable medical conditions include hypertension, hyperlipidemia, COPD, BPH. Patient is accompanied by his daughter. Patient for about 2 months been complaining of lower abdominal pain. Feels bloated. Prior to that he was having a bowel movement about once or twice a day. Now is down to small amounts of Bradley's like bowels. Occasional diarrhea. Abdomen feels a bit bloated. No nausea vomiting. Patient lost about 2024 pounds. Patient is afraid to eat. Also noticed to be dizzy lightheaded. In the ER patient was found to be in atrial fibrillation. Started on IV Cardizem and IV heparin. December 25: Patient back in sinus rhythm. On eliquis. Discussed with Dr. Doss. proceed with endoscopy. December 26: Patient switched to Lovenox yesterday. It'll be held after p.m. dose today. Pending EGD coloscopy tomorrow. Discussed with patient. Patient has some loose stool last night. Active Medications Acetaminophen (Acetaminophen Tab 325 Mg Tab) 650 mg PO Q6HR PRN PRN Reason: Mild Pain or Fever > 100.5 Albuterol Sulfate (Albuterol Nebulized 2.5 Mg/3 Ml) 2.5 mg INHALATION RT-QID PRN PRN Reason: Shortness Of Breath Amlodipine Besylate (Amlodipine 10 Mg Tab) 10 mg PO DAILY [facility] Last Admin: 12/26/21 08:56 Dose: 10 mg Documented by: Atorvastatin Calcium (Atorvastatin 20 Mg Tab) 20 mg PO DAILY [facility] Last Admin: 12/26/21 08:56 Dose: 20 mg Documented by: Budesonide/Formoterol Fumarate (Symbicort 80-4.5 Mcg Inhaler) 2 puff INHALATION RT-BID [facility] Last Admin: 12/26/21 08:35 Dose: Not Given Documented by: Enoxaparin Sodium (Enoxaparin 80 Mg/0.8 Ml Syringe) 80 mg SQ Q12HR [facility] Stop: 12/26/21 23:59 Last Admin: 12/26/21 08:56 Dose: 80 mg Documented by: Fluticasone Propionate (Fluticasone 50mcg/[place] Nasal 16gm) 2 spray EA NOSTRIL DAILY PRN PRN Reason: Allergy Symptoms Hydromorphone HCl (Hydromorphone 0.5 Mg/0.5 Ml Syringe) 0.5 mg IVP Q3HR PRN PRN Reason: Moderate Pain Lisinopril (Lisinopril 20 Mg Tab) 40 mg PO DAILY [facility] Last Admin: 12/26/21 08:56 Dose: 40 mg Documented by: Loratadine (Loratadine 10 Mg Tab) 10 mg PO DAILY PRN PRN Reason: Allergy Symptoms Last Admin: 12/24/21 11:08 Dose: 10 mg Documented by: Metoprolol Succinate (Metoprolol Succinate (Er) 25 Mg Tab.Er.24h) 25 mg PO BID [facility] Last Admin: 12/26/21 08:57 Dose: Not Given Documented by: Naloxone HCl (Naloxone 0.4 Mg/Ml 1 Ml Vial) 0.2 mg IV Q2M PRN PRN Reason: Opioid Reversal Tamsulosin HCl (Tamsulosin 0.4 Mg Cap.Er.24h) 0.4 mg PO PC-BRKFST [facility] Last Admin: 12/26/21 08:56 Dose: 0.4 mg Documented by: Past medical history to include: Hypertension, hyperlipidemia, COPD, BPH Social history: Alone. Retired from [employer]. Smoked a pack and a half a day for close to 40 years stopped about 10 years ago. Family history: Reviewed, noncontributory to presentation Physical examination: VITAL SIGNS: 97.9, 65, 18, 126/69, 96% room air GENERAL: sitting up in a chair, comfortable EYES: Pupils equal. Conjunctiva normal. HEENT: External appearance of nose and ears normal, oral cavity grossly normal. NECK: JVD not raised; masses not palpable. HEART: Heart sounds irregular; no edema. LUNGS: Respiratory rate normal; decreased breath sounds. ABDOMEN: Soft, some distention. Mild lower abdominal tenderness. No guarding rigidity., liver spleen not palpable, no masses palpable. PSYCH: Alert and oriented x3; mood and affect normal. MUSCULOSKELETAL:No Clubbing/cyanosis;muscles-grossly intact, evidence of OA INVESTIGATIONS, reviewed in the clinical context: White count 5.9 hemoglobin 15.8 platelets 135 potassium 4.3 creatinine 0.91 Troponin I less than 0.012 TSH 1.350 EKG tracing personally reviewed by me-atrial fibrillation. Rate 141 2-D echocardiogram: Moderate concentric LVH. EF 60-65%. Computed tomography scan abdomen and pelvis:: Gallstone. Right kidney stone. Large prostate. Chest x-ray film personally reviewed by me-no infiltrates Assessment and plan: -Paroxysmal atrial fibrillation rate now in sinus rhythm. Toprol-XL 25 mg twice a day . Eliquis -Essential hypertension Norvasc 10 mg a day, Zestril 40 mg a day, Toprol-XL 25 mg twice a day -Hyperlipidemia Lipitor 20 mg a day -COPD in an ex-smoker Symbicort 80/4.52 puffs twice a day. Albuterol when necessary -BPH Flomax 0.4 mg a day -2 months of lower abdominal pain. Change in bowel pattern. Decrease appetite. Weight loss. EGD colonoscopy tomorrow -IV heparin monitoring: Discontinue Follow PTT Hold Lovenox after p.m. dose today. EGD coloscopy tomorrow. Discussed with patient.
[2021-12-26 16:27] VITALS: BMI 30.1
[2021-12-27] MEDS: amLODIPine 10 MG TAB PO SCH (08:00)
[2021-12-27] MEDS: ATORVASTATIN 20 MG TAB PO SCH (08:00)
[2021-12-27] MEDS: TAMSULOSIN 0.4 MG CAP.ER.24H PO SCH (08:00)
[2021-12-27] MEDS: lisinopriL 20 MG TAB PO SCH (08:00)
[2021-12-27] MEDS: METOPROLOL SUCCINATE (ER) 25 MG TAB.ER.24H PO SCH (08:02)
[2021-12-27] MEDS: LACTATED RINGERS 1,000 ML IV SCH (08:04)
[2021-12-27 08:52] LABS: HCT 50.6 % (39.0-53.0); HGB 16.9 gm/dL (13.0-17.5); MCH 32.6 pg (25.0-35.0); MCHC 33.4 g/dL (31.0-37.0); MCV 97.5 fL (80.0-100.0); Mean Platelet Volume 7.5; Platelet Count 150 k/uL (150-450); RBC 5.19 m/uL (4.30-5.90); RDW 11.9 % (11.5-15.5); WBC 4.9 k/uL (3.8-10.6)
[2021-12-27 09:06] LABS: ALT 99 U/L (4-49); AST 154 U/L (17-59); African American GFR (CKD) >90 (>60 ml/min/1.73 sqM); Albumin 4.3 g/dL (3.5-5.0); Alkaline Phosphatase 70 U/L (38-126); Anion Gap 9 mmol/L; Blood Urea Nitrogen 6 mg/dL (9-20); Calcium 9.3 mg/dL (8.4-10.2); Carbon Dioxide 23 mmol/L (22-30); Chloride 108 mmol/L (98-107); Glucose 107 mg/dL (74-99); Non-African American GFR(CKD) >90 (>60 ml/min/1.73 sqM); Potassium 3.8 mmol/L (3.5-5.1); Sodium 140 mmol/L (137-145); Total Bilirubin 1.2 mg/dL (0.2-1.3); Total Protein 7.6 g/dL (6.3-8.2)
[2021-12-27] MEDS ORDERED: DILTIAZEM DRIP BOLUS FROM BAG 1 MG SOLN IV ONE (09:11)
[2021-12-27] MEDS ORDERED: DILTIAZEM 125 MG in SODIUM CHLORIDE 0.9% 100 ML IV SCH (09:15)
[2021-12-27] MEDS: SYMBICORT 80-4.5 MCG INHALER INHALATION SCH ×2 (09:30→20:29)
[2021-12-27] MEDS ORDERED: MIDAZOLAM 2 MG/2 ML VIAL ONE (10:56)
[2021-12-27] MEDS ORDERED: fentaNYL (PF) 50 MCG/ML 2 ML AMP ONE (10:56)
[2021-12-27] MEDS ORDERED: LIDOCAINE 1% INJ 10MG/ML (20 ML MDV) ONE (10:56)
[2021-12-27] MEDS ORDERED: ePHEDrine 50 MG/ML 1 ML VIAL ONE (10:56)
[2021-12-27] MEDS ORDERED: PROPOFOL 10 MG/ML 20 ML VIAL IV ONE (10:56)
[2021-12-27] MEDS ORDERED: IV FLUID CONTINUATION 1,000 ML IV ONE (11:11)
--- NOTE | 2021-12-27 11:32 | P.PN ---
Subjective This is a 66-year-old gentleman with history of hypertension and no history of any cardiac arrhythmias or coronary artery disease. 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 We have been asked to see in consultation for atrial fibrillation with RVR. Patient presents to the emergency room complaining of lower abdominal discomfort for 5 days. EKG on admission showed evidence of atrial fibrillation with a rapid ventricular response. Patient was treated with IV Cardizem with conversion to sinus rhythm. Patient was started on IV heparin. Echocardiogram showed normal LV function without any significant valvular abnormalities. Patient was transitioned to Eliquis 5mg BID. He was initiated on metoprolol succinate 25mg BID, however, became sinus bradycardic HR 30s-40s and medication was held since 12/25/2021, last dose on 12/24. 12/27/2021 Patient seen and examined at bedside, no acute distress. Patient went back into each fibrillation with rapid ventricular response heart rate in the 140-166 this morning. Patient was given metoprolol succinate 25 mg with improvement in heart rate. Patient denies having any chest pain or shortness of breath. Plan for EGD/Colonoscopy today, Eliquis is on hold. PHYSICAL EXAMINATION GENERAL EXAM: Patient is alert and oriented and doesn't appear to be in any acute distress GENERAL: Well-appearing, well-nourished and in no acute distress. NECK: Supple without JVD or thyromegaly. LUNGS: Breath sounds clear to auscultation bilaterally. Respiration equal and unlabored. No wheezes, rales or rhonchi. HEART: Irregular tachycardic rate and rhythm without murmurs, rubs or gallops. S1 and S2 heard. EXTREMITIES: Normal range of motion, no edema. No clubbing or cyanosis. Periphe ral pulses intact. ASSESSMENT: Paroxysmal atrial fibrillation with RVR, new onset [id number] score 2 Abdominal pain Elevated liver enzymes History of Hypertension Dyslipidemia Plan: Plan for EGD/Colonsocpy today We will give IV Cardizem 5mg and start Cardizem drip 5mg/hr Discontinue Metoprolol succinate and start metoprolol tartrate 25mg BID Continue lisinopril 40 mg daily, Lipitor 20 mg daily, Norvasc 10 mg daily Recommend restarting Eliquis was ok per surgery Consult case management for Eliquis coverage Continue cardiac telemetry Further recommendations based on clinical course Nurse practitioner note has been reviewed, I agree with documented findings and plan of care. Patient was seen and examined. Objective - Vital Signs Vital signs: Vital Signs Temp 97.7 F 12/27/21 08:00 Pulse 107 H 12/27/21 09:30 Resp 18 12/27/21 08:00 BP 105/64 12/27/21 08:00 Pulse Ox 98 12/27/21 08:00 Intake & Output 12/26/21 12/27/21 12/27/21 18:59 06:59 18:59 Intake Total 780 50 Balance 780 50 Weight 89.811 kg Intake: IV 20 Lactated Ringers 1,000 ml 20 @ 20 mls/hr IV .Q24H [facility] Rx#:[id number] Oral 780 30 Other: Voiding Method Toilet Toilet Toilet # Voids 2 1 # Bowel Movements 5 - Labs CBC & Chem 7: 12/27/21 08:31 12/27/21 08:31 Labs: Abnormal Lab Results - Last 24 Hours (Table) 12/27/21 Range/Units 08:31 Chloride 108 H (98-107) mmol/L BUN 6 L (9-20) mg/dL Glucose 107 H (74-99) mg/dL AST 154 H (17-59) U/L ALT 99 H (4-49) U/L
--- NOTE | 2021-12-27 11:34 | P.PCN ---
Date of Procedure: 12/27/21 Procedure(s) Performed: PREOPERATIVE DIAGNOSIS: Abdominal pain, change in bowel habits, weight loss POSTOPERATIVE DIAGNOSIS: Gastritis, duodenitis, multiple colonic polyps see report PROCEDURE: 1. EGD with biopsy 2. Colonoscopy with snare polypectomy ANESTHESIA: [facility] [place] SURGEON: Warren Adams M.D. SPECIMENS: Duodenum, antrum, multiple polyps ENDOSCOPIC PROCEDURE: The patient was on the endoscopy table in the left decubitus position. The Olympus gastroscope was inserted into the oropharynx and passed under direct visualization to the region of the third portion of the duodenum. From that point the scope was slowly withdrawn inspecting all surfaces carefully. There was mild duodenitis present. A biopsy of the duodenum took place. The pylorus was widely patent. The stomach was carefully inspected. There was mild gastritis present. A biopsy of the antrum took place to rule out H. pylori. Retroflexion revealed a normal hiatus. The esophagus was then carefully examined. There were no neoplastic inflammatory or polypoid lesions throughout the visualized esophagus. The patient was kept on the endoscopy table in the left decubitus position. The Olympus colonoscope was inserted into the anus and passed under direct visualization to the base of the cecum. The appendiceal orifice was visualized. From that point the scope was slowly withdrawn inspecting all surfaces carefully. There were no neoplastic inflammatory or polypoid lesions throughout the cecum. In the ascending colon there were 3 separate polyps removed using the snare with cautery technique, in the transverse colon a single polyp removed using the snare with cautery technique, descending colon appeared normal, sigmoid colon 25 cm was a polyp that was removed using the snare with cautery technique. In the rectum there were 2 areas of polyps. The proximal rectal polyp was small and removed without difficulty using the snare with cautery technique. In the distal rectum at 13 cm was a more sessile polyp that was able to removed in one piece using the snare with cautery technique. This measured 1.5 cm in size and appeared friable. The remainder of the rectum was normal. There was no significant diverticular disease noted. Digital rectal examination was normal. The patient was taken to the recovery room in stable condition per anesthesia guidelines. RECOMMENDATIONS: Resume diet. Hold anticoagulation for now.
--- NOTE | 2021-12-27 15:55 | P.PN ---
Progress Note - Text Progress Note Date: 12/27/21 Chief Complaint: Dizzy lightheaded This is a pleasant 66-year-old patient of Dr. Beatriz Cantu. Chronic stable medical conditions include hypertension, hyperlipidemia, COPD, BPH. Patient is accompanied by his daughter. Patient for about 2 months been complaining of lower abdominal pain. Feels bloated. Prior to that he was having a bowel movement about once or twice a day. Now is down to small amounts of Bradley's like bowels. Occasional diarrhea. Abdomen feels a bit bloated. No nausea vomiting. Patient lost about 2024 pounds. Patient is afraid to eat. Also noticed to be dizzy lightheaded. In the ER patient was found to be in atrial fibrillation. Started on IV Cardizem and IV heparin. December 25: Patient back in sinus rhythm. On eliquis. Discussed with Dr. Doss. proceed with endoscopy. December 26: Patient switched to Lovenox yesterday. It'll be held after p.m. dose today. Pending EGD coloscopy tomorrow. Discussed with patient. Patient has some loose stool last night. December 27: Patient is having bradycardia yesterday. Beta brit was held. Today in the morning heart rate went up to 140s to 160s. Put back on Cardizem drip. Also put on metoprolol tartrate 12.5 mg 3 times a day. Underwent EGD colonoscopy today.: Found to have gastritis/duodenitis multiple colonic polyps. Biopsy done. Postprocedure having bloating in the stomach. Started on clear liquids. Active Medications Acetaminophen (Acetaminophen Tab 325 Mg Tab) 650 mg PO Q6HR PRN PRN Reason: Mild Pain or Fever > 100.5 Albuterol Sulfate (Albuterol Nebulized 2.5 Mg/3 Ml) 2.5 mg INHALATION RT-QID PRN PRN Reason: Shortness Of Breath Amlodipine Besylate (Amlodipine 10 Mg Tab) 10 mg PO DAILY [facility] Last Admin: 12/27/21 08:00 Dose: Not Given Documented by: Atorvastatin Calcium (Atorvastatin 20 Mg Tab) 20 mg PO DAILY [facility] Last Admin: 12/27/21 08:00 Dose: Not Given Documented by: Budesonide/Formoterol Fumarate (Symbicort 80-4.5 Mcg Inhaler) 2 puff INHALATION RT-BID [facility] Last Admin: 12/27/21 09:30 Dose: Not Given Documented by: Fluticasone Propionate (Fluticasone 50mcg/[place] Nasal 16gm) 2 spray EA NOSTRIL DAILY PRN PRN Reason: Allergy Symptoms Hydromorphone HCl (Hydromorphone 0.5 Mg/0.5 Ml Syringe) 0.5 mg IVP Q3HR PRN PRN Reason: Moderate Pain Lactated Ringer's (Lactated Ringers) 1,000 mls @ 20 mls/hr IV .Q24H [facility] Last Admin: 12/27/21 08:04 Dose: 20 mls/hr Documented by: Lisinopril (Lisinopril 20 Mg Tab) 40 mg PO DAILY [facility] Last Admin: 12/27/21 08:00 Dose: Not Given Documented by: Loratadine (Loratadine 10 Mg Tab) 10 mg PO DAILY PRN PRN Reason: Allergy Symptoms Last Admin: 12/24/21 11:08 Dose: 10 mg Documented by: Metoprolol Tartrate (Metoprolol Tartrate 12.5 Mg Tab) 12.5 mg PO TID [facility] Naloxone HCl (Naloxone 0.4 Mg/Ml 1 Ml Vial) 0.2 mg IV Q2M PRN PRN Reason: Opioid Reversal Tamsulosin HCl (Tamsulosin 0.4 Mg Cap.Er.24h) 0.4 mg PO PC-BRKFST [facility] Last Admin: 12/27/21 08:00 Dose: Not Given Documented by: Past medical history to include: Hypertension, hyperlipidemia, COPD, BPH Social history: Alone. Retired from [employer]. Smoked a pack and a half a day for close to 40 years stopped about 10 years ago. Family history: Reviewed, noncontributory to presentation Physical examination: VITAL SIGNS: 97.7, 139, 18, 105/64, 98% room air GENERAL: sitting up in a chair, EYES: Pupils equal. Conjunctiva normal. HEENT: External appearance of nose and ears normal, oral cavity grossly normal. NECK: JVD not raised; masses not palpable. HEART: Heart sounds irregular; no edema. LUNGS: Respiratory rate normal; decreased breath sounds. ABDOMEN: Soft, some distention. Mild lower abdominal tenderness. No guarding rigidity., liver spleen not palpable, no masses palpable. PSYCH: Alert and oriented x3; mood and affect normal. MUSCULOSKELETAL:No Clubbing/cyanosis;muscles-grossly intact, evidence of OA INVESTIGATIONS, reviewed in the clinical context: December 27: White count [age]-year-old woman 16.9 potassium 3.8 creatinine 0.77 AST 154 ALT 99 White count 5.9 hemoglobin 15.8 platelets 135 potassium 4.3 creatinine 0.91 Troponin I less than 0.012 TSH 1.350 EKG tracing personally reviewed by me-atrial fibrillation. Rate 141 2-D echocardiogram: Moderate concentric LVH. EF 60-65%. Computed tomography scan abdomen and pelvis:: Gallstone. Right kidney stone. Large prostate. Chest x-ray film personally reviewed by me-no infiltrates Assessment and plan: -Paroxysmal atrial fibrillation rate : Back into rapid ventricular rate Started on IV Cardizem drip. Beta brit 12.5 by mouth 3 times a day. . Eliquis -Essential hypertension Norvasc 10 mg a day, Zestril 40 mg a day, metoprolol -Hyperlipidemia Lipitor 20 mg a day -COPD in an ex-smoker Symbicort 80/4.52 puffs twice a day. Albuterol when necessary -BPH Flomax 0.4 mg a day -Gastritis and duodenitis Add PPI -Multiple colon polyps Status post biopsy Because of colon polyps anticoagulation held for now. Liquid diet. IV Cardizem drip. Change to 2 metoprolol tartrate 12.5 by mouth 3 times a day discussed with patient.
[2021-12-27] MEDS: METOPROLOL TARTRATE 12.5 MG TAB PO SCH ×2 (16:57→22:20)
[2021-12-28] MEDS: LACTATED RINGERS 1,000 ML IV SCH (01:31)
[2021-12-28] MEDS: METOPROLOL TARTRATE 12.5 MG TAB PO SCH ×3 (08:43→20:50)
[2021-12-28] MEDS: SYMBICORT 80-4.5 MCG INHALER INHALATION SCH ×2 (09:20→21:01)
[2021-12-28] MEDS ORDERED: APIXABAN 5 MG TAB PO SCH (09:45)
[2021-12-28] MEDS: amLODIPine 10 MG TAB PO SCH (10:02)
[2021-12-28] MEDS: ATORVASTATIN 20 MG TAB PO SCH (10:02)
[2021-12-28] MEDS: TAMSULOSIN 0.4 MG CAP.ER.24H PO SCH (10:02)
[2021-12-28] MEDS: lisinopriL 20 MG TAB PO SCH (10:03)
--- NOTE | 2021-12-28 13:34 | P.PN ---
Subjective This is a 66-year-old gentleman with history of hypertension and no history of any cardiac arrhythmias or coronary artery disease. 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 We have been asked to see in consultation for atrial fibrillation with RVR. Patient presents to the emergency room complaining of lower abdominal discomfort for 5 days. EKG on admission showed evidence of atrial fibrillation with a rapid ventricular response. Patient was treated with IV Cardizem with conversion to sinus rhythm. Patient was started on IV heparin. Echocardiogram showed normal LV function without any significant valvular abnormalities. Patient was transitioned to Eliquis 5mg BID. He was initiated on metoprolol succinate 25mg BID, however, became sinus bradycardic HR 30s-40s and medication was held since 12/25/2021, last dose on 12/24. 12/28/2021 Patient seen and examined at bedside, no acute distress. Patient converted to sinus mechanism yesterday after EGD/Colonoscopy. He was given one dose of metoprolol tartrate 12.5mg. He is maintaining sinus mechanism HR 45-50s. Patient denies having any chest pain or shortness of breath. EGD/Colonoscopy revealed Gastritis, duodenitis, multiple colonic polyps with snare polypectomy. No bleeding PHYSICAL EXAMINATION GENERAL EXAM: Patient is alert and oriented and doesn't appear to be in any acute distress GENERAL: Well-appearing, well-nourished and in no acute distress. NECK: Supple without JVD or thyromegaly. LUNGS: Breath sounds clear to auscultation bilaterally. Respiration equal and unlabored. No wheezes, rales or rhonchi. HEART: Regular rate and rhythm without murmurs, rubs or gallops. S1 and S2 heard. EXTREMITIES: Normal range of motion, no edema. No clubbing or cyanosis. Peripheral pulses intact. ASSESSMENT: Paroxysmal atrial fibrillation with RVR, new onset [id number] score 2 Abdominal pain Elevated liver enzymes History of Hypertension Dyslipidemia Plan: Metoprolol tartrate 12.5mg BID Restart anticoagulation Eliquis 5mg BID per Dr. Donovan Continue lisinopril 40 mg daily, Lipitor 20 mg daily, Norvasc 10 mg daily Consult case management for Eliquis coverage From a cardiology perspective, patient is stable for discharge pending clearance from other consultants and primary. Nurse practitioner note has been reviewed, I agree with documented findings and plan of care. Patient was seen and examined. Objective - Vital Signs Vital signs: Vital Signs Temp 98.2 F 12/28/21 11:47 Pulse 52 L 12/28/21 11:47 Resp 16 12/28/21 11:47 BP 114/62 12/28/21 11:47 Pulse Ox 95 12/28/21 11:47 Intake & Output 12/27/21 12/28/21 12/28/21 18:59 06:59 18:59 Intake Total 1341.833 980 Output Total 600 Balance 741.833 980 Intake: IV 320 Invasive Line 2 20 Lactated Ringers 1,000 ml 100 @ 20 mls/hr IV .Q24H [facility] Rx#:[id number] Intake, IV Titration 13.833 Amount Diltiazem 125 mg In 13.833 Sodium Chloride 0.9% 100 ml @ 5 MG/HR 5 mls/hr IV .Q24H [facility] Rx#:[id number] Oral 1008 980 Output: Urine 600 Other: Voiding Method Toilet # Voids 1 2 1 - Labs CBC & Chem 7: 12/27/21 08:31 12/27/21 08:31
--- NOTE | 2021-12-28 15:06 | P.PN ---
Progress Note - Text Progress Note Date: 12/28/21 Chief Complaint: Dizzy lightheaded This is a pleasant 66-year-old patient of Dr. Beatriz Cantu. Chronic stable medical conditions include hypertension, hyperlipidemia, COPD, BPH. Patient is accompanied by his daughter. Patient for about 2 months been complaining of lower abdominal pain. Feels bloated. Prior to that he was having a bowel movement about once or twice a day. Now is down to small amounts of Bradley's like bowels. Occasional diarrhea. Abdomen feels a bit bloated. No nausea vomiting. Patient lost about 2024 pounds. Patient is afraid to eat. Also noticed to be dizzy lightheaded. In the ER patient was found to be in atrial fibrillation. Started on IV Cardizem and IV heparin. December 25: Patient back in sinus rhythm. On eliquis. Discussed with Dr. Doss. proceed with endoscopy. December 26: Patient switched to Lovenox yesterday. It'll be held after p.m. dose today. Pending EGD coloscopy tomorrow. Discussed with patient. Patient has some loose stool last night. December 27: Patient is having bradycardia yesterday. Beta brit was held. Today in the morning heart rate went up to 140s to 160s. Put back on Cardizem drip. Also put on metoprolol tartrate 12.5 mg 3 times a day. Underwent EGD colonoscopy today.: Found to have gastritis/duodenitis multiple colonic polyps. Biopsy done. Postprocedure having bloating in the stomach. Started on clear liquids. December 28: Heart rate in the 40s yesterday.. Cardizem drip was discontinued yesterday. Lopressor cutback to twice a day. Eliquis started. Abdominal bloating is gone. Discussed with the patient. What the heart rate today. See how he does with eliquis. Hopefully home tomorrow. Active Medications Acetaminophen (Acetaminophen Tab 325 Mg Tab) 650 mg PO Q6HR PRN PRN Reason: Mild Pain or Fever > 100.5 Albuterol Sulfate (Albuterol Nebulized 2.5 Mg/3 Ml) 2.5 mg INHALATION RT-QID PRN PRN Reason: Shortness Of Breath Amlodipine Besylate (Amlodipine 10 Mg Tab) 10 mg PO DAILY [facility] Last Admin: 12/28/21 10:02 Dose: 10 mg Documented by: Apixaban (Apixaban 5 Mg Tab) 5 mg PO BID [facility]; Protocol Last Admin: 12/28/21 10:03 Dose: 5 mg Documented by: Atorvastatin Calcium (Atorvastatin 20 Mg Tab) 20 mg PO DAILY [facility] Last Admin: 12/28/21 10:02 Dose: 20 mg Documented by: Budesonide/Formoterol Fumarate (Symbicort 80-4.5 Mcg Inhaler) 2 puff INHALATION RT-BID [facility] Last Admin: 12/28/21 09:20 Dose: Not Given Documented by: Fluticasone Propionate (Fluticasone 50mcg/[place] Nasal 16gm) 2 spray EA NOSTRIL DAILY PRN PRN Reason: Allergy Symptoms Hydromorphone HCl (Hydromorphone 0.5 Mg/0.5 Ml Syringe) 0.5 mg IVP Q3HR PRN PRN Reason: Moderate Pain Lisinopril (Lisinopril 20 Mg Tab) 40 mg PO DAILY [facility] Last Admin: 12/28/21 10:03 Dose: 40 mg Documented by: Loratadine (Loratadine 10 Mg Tab) 10 mg PO DAILY PRN PRN Reason: Allergy Symptoms Last Admin: 12/24/21 11:08 Dose: 10 mg Documented by: Metoprolol Tartrate (Metoprolol Tartrate 12.5 Mg Tab) 12.5 mg PO BID [facility] Last Admin: 12/28/21 10:04 Dose: 12.5 mg Documented by: Naloxone HCl (Naloxone 0.4 Mg/Ml 1 Ml Vial) 0.2 mg IV Q2M PRN PRN Reason: Opioid Reversal Tamsulosin HCl (Tamsulosin 0.4 Mg Cap.Er.24h) 0.4 mg PO -BRKFST [facility] Last Admin: 12/28/21 10:02 Dose: 0.4 mg Documented by: Past medical history to include: Hypertension, hyperlipidemia, COPD, BPH Social history: Alone. Retired from [employer]. Smoked a pack and a half a day for close to 40 years stopped about 10 years ago. Family history: Reviewed, noncontributory to presentation Physical examination: VITAL SIGNS: 98.2, 52, 16, 140s/62, 95% room air GENERAL: sitting up in a chair, EYES: Pupils equal. Conjunctiva normal. HEENT: External appearance of nose and ears normal, oral cavity grossly normal. NECK: JVD not raised; masses not palpable. HEART: Heart sounds irregular; no edema. LUNGS: Respiratory rate normal; decreased breath sounds. ABDOMEN: Soft, some distention. Mild lower abdominal tenderness. No guarding rigidity., liver spleen not palpable, no masses palpable. PSYCH: Alert and oriented x3; mood and affect normal. MUSCULOSKELETAL:No Clubbing/cyanosis;muscles-grossly intact, evidence of OA INVESTIGATIONS, reviewed in the clinical context: December 27: White count 4.9-year-old woman 16.9 potassium 3.8 creatinine 0.77 AST 154 ALT 99 White count 5.9 hemoglobin 15.8 platelets 135 potassium 4.3 creatinine 0.91 Troponin I less than 0.012 TSH 1.350 EKG tracing personally reviewed by me-atrial fibrillation. Rate 141 2-D echocardiogram: Moderate concentric LVH. EF 60-65%. Computed tomography scan abdomen and pelvis:: Gallstone. Right kidney stone. Large prostate. Chest x-ray film personally reviewed by me-no infiltrates Assessment and plan: -Paroxysmal atrial fibrillation rate : Back into rapid ventricular rate. Bradycardic. Started on IV Cardizem drip-discontinued. Decrease Beta brit 12.5 by mouth twice daily. . Eliquis-resumed -Essential hypertension Norvasc 10 mg a day, Zestril 40 mg a day, metoprolol -Hyperlipidemia Lipitor 20 mg a day -COPD in an ex-smoker Symbicort 80/4.52 puffs twice a day. Albuterol when necessary -BPH Flomax 0.4 mg a day -Gastritis and duodenitis Add PPI -Multiple colon polyps Status post biopsy Eliquis be resumed. Lopressor dose being cutback. Increase activity. Watch heart rate. If remains stable hopefully home tomorrow.
--- NOTE | 2021-12-28 18:18 | P.PN ---
Subjective Progress Note Date: 12/28/21 Principal diagnosis: Abdominal pain Patient's abdominal pain that he was having after the colonoscopy yesterday has resolved. He felt bloated yesterday but the symptoms resolved with flatus. Tolerating diet. Patient states he is planning for discharge tomorrow. No rectal bleeding. Objective - Vital Signs Vital signs: Vital Signs Temp 98.2 F 12/28/21 11:47 Pulse 52 L 12/28/21 11:47 Resp 16 12/28/21 11:47 BP 114/62 12/28/21 11:47 Pulse Ox 95 12/28/21 11:47 Intake & Output 12/27/21 12/28/21 12/28/21 18:59 06:59 18:59 Intake Total 0096.274 7057 Output Total 600 Balance 810.129 2089 Intake: IV 320 Invasive Line 2 20 Lactated Ringers 1,000 ml 100 @ 20 mls/hr IV .Q24H [facility] Rx#:[id number] Intake, IV Titration 13.833 Amount Diltiazem 125 mg In 13.833 Sodium Chloride 0.9% 100 ml @ 5 MG/HR 5 mls/hr IV .Q24H [facility] Rx#:[id number] Oral 1008 1220 Output: Urine 600 Other: Voiding Method Toilet # Voids 1 2 1 - Exam Abdomen: Soft, nontender, nondistended - Labs CBC & Chem 7: 12/27/21 08:31 12/27/21 08:31 Assessment and Plan (1) Abdominal pain Narrative/Plan: Patient doing better at this time. No evidence of bleeding. Patient had numerous polyps removed yesterday some of these were large. Would hold off on anticoagulation at least until tomorrow afternoon. Current Visit: Yes Status: Acute Code(s): R10.9 - UNSPECIFIED ABDOMINAL PAIN SNOMED Code(s): 64799863
[2021-12-29] MEDS: METOPROLOL TARTRATE 12.5 MG TAB PO SCH ×2 (08:40→20:09)
[2021-12-29] MEDS: amLODIPine 10 MG TAB PO SCH (08:41)
[2021-12-29] MEDS: TAMSULOSIN 0.4 MG CAP.ER.24H PO SCH (08:41)
[2021-12-29] MEDS: ATORVASTATIN 20 MG TAB PO SCH (08:41)
[2021-12-29] MEDS: lisinopriL 20 MG TAB PO SCH (08:41)
[2021-12-29] MEDS: SYMBICORT 80-4.5 MCG INHALER INHALATION SCH ×2 (08:51→20:47)
[2021-12-29 09:20] LABS: HCT 45.4 % (39.0-53.0); HGB 14.8 gm/dL (13.0-17.5); MCH 31.9 pg (25.0-35.0); MCHC 32.5 g/dL (31.0-37.0); MCV 98.1 fL (80.0-100.0); Mean Platelet Volume 7.7; Platelet Count 135 k/uL (150-450); RBC 4.62 m/uL (4.30-5.90); RDW 12.1 % (11.5-15.5); WBC 5.1 k/uL (3.8-10.6)
--- NOTE | 2021-12-29 15:53 | P.PN ---
Subjective This is a 66-year-old gentleman with history of hypertension and no history of any cardiac arrhythmias or coronary artery disease. 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 We have been asked to see in consultation for atrial fibrillation with RVR. Patient presents to the emergency room complaining of lower abdominal discomfort for 5 days. EKG on admission showed evidence of atrial fibrillation with a rapid ventricular response. Patient was treated with IV Cardizem with conversion to sinus rhythm. Patient was started on IV heparin. Echocardiogram showed normal LV function without any significant valvular abnormalities. Patient was transitioned to Eliquis 5mg BID. He was initiated on metoprolol succinate 25mg BID, however, became sinus bradycardic HR 30s-40s and medication was held since 12/25/2021, last dose on 12/24. 12/28/2021 Patient seen and examined at bedside, no acute distress. Patient converted to sinus mechanism yesterday after EGD/Colonoscopy. He was given one dose of metoprolol tartrate 12.5mg. He is maintaining sinus mechanism HR 45-50s. Patient denies having any chest pain or shortness of breath. EGD/Colonoscopy revealed Gastritis, duodenitis, multiple colonic polyps with snare polypectomy. No bleeding 12/29/2021 Patient seizing at bedside, no acute distress. Patient with a bloody bowel movement yesterday after restarting Eliquis. Currently on hold. Telemetry reviewed patient with heart rates of 38-50s. He is asymptomatic with this bradycardia. Bradycardia mostly in the high 30s at night. His metoprolol has been decrease to 12.5mg BID. PHYSICAL EXAMINATION GENERAL EXAM: Patient is alert and oriented and doesn't appear to be in any acute distress GENERAL: Well-appearing, well-nourished and in no acute distress. NECK: Supple without JVD or thyromegaly. LUNGS: Breath sounds clear to auscultation bilaterally. Respiration equal and unlabored. No wheezes, rales or rhonchi. HEART: Regular rate and rhythm without murmurs, rubs or gallops. S1 and S2 heard. EXTREMITIES: Normal range of motion, no edema. No clubbing or cyanosis. Peripheral pulses intact. ASSESSMENT: Paroxysmal atrial fibrillation with RVR, new onset [id number] score 2 Sinus bradycardia, patient possibly with tachy-barry, asymptomatic Abdominal pain Elevated liver enzymes History of Hypertension Dyslipidemia Plan: We will continue Metoprolol tartrate 12.5mg BID, patient is tolerating well. Restart anticoagulation Eliquis 5mg BID when cleared by surgery Continue lisinopril 40 mg daily, Lipitor 20 mg daily, Norvasc 10 mg daily Consult case management for Eliquis coverage From a cardiology perspective, patient is stable for discharge pending clearance from other consultants and primary. Close follow up with Dr. Riley outpatient. Nurse practitioner note has been reviewed, I agree with documented findings and plan of care. Patient was seen and examined. Objective - Vital Signs Vital signs: Vital Signs Temp 98.2 F 12/29/21 08:40 Pulse 54 L 12/29/21 08:40 Resp 16 12/29/21 08:40 BP 125/74 12/29/21 08:40 Pulse Ox 96 12/29/21 08:40 Intake & Output 12/28/21 12/29/21 12/29/21 18:59 06:59 18:59 Intake Total 1220 240 Output Total 2 Balance 1220 -2 240 Intake: Oral 1220 240 Output: Urine/Stool Mix 2 Other: # Voids 1 1 - Labs CBC & Chem 7: 12/29/21 08:40 12/27/21 08:31 Labs: Abnormal Lab Results - Last 24 Hours (Table) 12/29/21 Range/Units 08:40 Plt Count 135 L (150-450) k/uL
--- NOTE | 2021-12-29 16:10 | P.PN ---
Progress Note - Text Progress Note Date: 12/29/21 Chief Complaint: Dizzy lightheaded This is a pleasant 66-year-old patient of Dr. Beatriz Cantu. Chronic stable medical conditions include hypertension, hyperlipidemia, COPD, BPH. Patient is accompanied by his daughter. Patient for about 2 months been complaining of lower abdominal pain. Feels bloated. Prior to that he was having a bowel movement about once or twice a day. Now is down to small amounts of Bradley's like bowels. Occasional diarrhea. Abdomen feels a bit bloated. No nausea vomiting. Patient lost about 2024 pounds. Patient is afraid to eat. Also noticed to be dizzy lightheaded. In the ER patient was found to be in atrial fibrillation. Started on IV Cardizem and IV heparin. December 25: Patient back in sinus rhythm. On eliquis. Discussed with Dr. Doss. proceed with endoscopy. December 26: Patient switched to Lovenox yesterday. It'll be held after p.m. dose today. Pending EGD coloscopy tomorrow. Discussed with patient. Patient has some loose stool last night. December 27: Patient is having bradycardia yesterday. Beta brit was held. Today in the morning heart rate went up to 140s to 160s. Put back on Cardizem drip. Also put on metoprolol tartrate 12.5 mg 3 times a day. Underwent EGD colonoscopy today.: Found to have gastritis/duodenitis multiple colonic polyps. Biopsy done. Postprocedure having bloating in the stomach. Started on clear liquids. December 28: Heart rate in the 40s yesterday.. Cardizem drip was discontinued yesterday. Lopressor cutback to twice a day. Eliquis started. Abdominal bloating is gone. Discussed with the patient. What the heart rate today. See how he does with eliquis. Hopefully home tomorrow. December 29: Patient had a maroon stool overnight. No abdominal pain. Heart rate did go down to the 40s. On Lopressor twice a day. No dizziness no lightheadedness. Eliquis has been held. Discussed with patient. Follow H&H Active Medications Acetaminophen (Acetaminophen Tab 325 Mg Tab) 650 mg PO Q6HR PRN PRN Reason: Mild Pain or Fever > 100.5 Albuterol Sulfate (Albuterol Nebulized 2.5 Mg/3 Ml) 2.5 mg INHALATION RT-QID PRN PRN Reason: Shortness Of Breath Amlodipine Besylate (Amlodipine 10 Mg Tab) 10 mg PO DAILY [facility] Last Admin: 12/29/21 08:41 Dose: 10 mg Documented by: Atorvastatin Calcium (Atorvastatin 20 Mg Tab) 20 mg PO DAILY [facility] Last Admin: 12/29/21 08:41 Dose: 20 mg Documented by: Budesonide/Formoterol Fumarate (Symbicort 80-4.5 Mcg Inhaler) 2 puff INHALATION RT-BID [facility] Last Admin: 12/29/21 08:51 Dose: Not Given Documented by: Fluticasone Propionate (Fluticasone 50mcg/[place] Nasal 16gm) 2 spray EA NOSTRIL DAILY PRN PRN Reason: Allergy Symptoms Hydromorphone HCl (Hydromorphone 0.5 Mg/0.5 Ml Syringe) 0.5 mg IVP Q3HR PRN PRN Reason: Moderate Pain Lisinopril (Lisinopril 20 Mg Tab) 40 mg PO DAILY [facility] Last Admin: 12/29/21 08:41 Dose: 40 mg Documented by: Loratadine (Loratadine 10 Mg Tab) 10 mg PO DAILY PRN PRN Reason: Allergy Symptoms Last Admin: 12/24/21 11:08 Dose: 10 mg Documented by: Metoprolol Tartrate (Metoprolol Tartrate 12.5 Mg Tab) 12.5 mg PO BID [facility] Last Admin: 12/29/21 08:40 Dose: 12.5 mg Documented by: Naloxone HCl (Naloxone 0.4 Mg/Ml 1 Ml Vial) 0.2 mg IV Q2M PRN PRN Reason: Opioid Reversal Tamsulosin HCl (Tamsulosin 0.4 Mg Cap.Er.24h) 0.4 mg PO PC-BRKFST [facility] Last Admin: 12/29/21 08:41 Dose: 0.4 mg Documented by: Past medical history to include: Hypertension, hyperlipidemia, COPD, BPH Social history: Alone. Retired from [employer]. Smoked a pack and a half a day for close to 40 years stopped about 10 years ago. Family history: Reviewed, noncontributory to presentation Physical examination: VITAL SIGNS: 98.2, 54, 16, 125/74, 96% room air GENERAL: sitting up in a chair, EYES: Pupils equal. Conjunctiva normal. HEENT: External appearance of nose and ears normal, oral cavity grossly normal. NECK: JVD not raised; masses not palpable. HEART: Heart sounds irregular; no edema. LUNGS: Respiratory rate normal; decreased breath sounds. ABDOMEN: Soft, some distention. No abdominal tenderness. No guarding rigidity., liver spleen not palpable, no masses palpable. PSYCH: Alert and oriented x3; mood and affect normal. MUSCULOSKELETAL:No Clubbing/cyanosis;muscles-grossly intact, evidence of OA INVESTIGATIONS, reviewed in the clinical context: December 29: White count 5.1 hemoglobin 14.8 platelets 135 December 27: White count 4.9-year-old woman 16.9 potassium 3.8 creatinine 0.77 AST 154 ALT 99 White count 5.9 hemoglobin 15.8 platelets 135 potassium 4.3 creatinine 0.91 Troponin I less than 0.012 TSH 1.350 EKG tracing personally reviewed by me-atrial fibrillation. Rate 141 2-D echocardiogram: Moderate concentric LVH. EF 60-65%. Computed tomography scan abdomen and pelvis:: Gallstone. Right kidney stone. Large prostate. Chest x-ray film personally reviewed by me-no infiltrates Assessment and plan: -Paroxysmal atrial fibrillation rate : Heart rate around 50 Started on IV Cardizem drip-discontinued. Beta brit 12.5 by mouth twice daily. . Held eliquis -Essential hypertension Norvasc 10 mg a day, Zestril 40 mg a day, metoprolol -Hyperlipidemia Lipitor 20 mg a day -COPD in an ex-smoker Symbicort 80/4.52 puffs twice a day. Albuterol when necessary -BPH Flomax 0.4 mg a day -Gastritis and duodenitis Add PPI -Multiple colon polyps Status post biopsy -Acute lower GI bleed with maroon stools. Status post polypectomy.: New today Follow H&H. Hold eliquis. Continue current dose of Lopressor. Follow H&H. Discussed with patient. Questions answered.
--- NOTE | 2021-12-29 18:11 | P.PN ---
Subjective Progress Note Date: 12/29/21 Principal diagnosis: Abdominal pain patient had episodes of bleeding last night and again this morning. No further bleeding since that time. No abdominal pain. Anticoagulants on hold. Hemoglobin 14.8. Objective - Vital Signs Vital signs: Vital Signs Temp 98.2 F 12/29/21 16:00 Pulse 45 L 12/29/21 16:00 Resp 16 12/29/21 16:00 BP 114/62 12/29/21 16:00 Pulse Ox 95 12/29/21 16:00 Intake & Output 12/28/21 12/29/21 12/29/21 18:59 06:59 18:59 Intake Total 1220 1100 Output Total 2 Balance 1220 -2 1100 Intake: Oral 1220 1100 Output: Urine/Stool Mix 2 Other: # Voids 1 1 1 - Exam Abdomen: Soft, nontender, nondistended - Labs CBC & Chem 7: 12/29/21 08:40 12/27/21 08:31 Labs: Abnormal Lab Results - Last 24 Hours (Table) 12/29/21 Range/Units 08:40 Plt Count 135 L (150-450) k/uL Assessment and Plan (1) Abdominal pain Narrative/Plan: patient doing well at this time. Monitor for further bleeding. Continue to hold anticoagulation. Current Visit: Yes Status: Acute Code(s): R10.9 - UNSPECIFIED ABDOMINAL PAIN SNOMED Code(s): 02039533
[2021-12-30 07:22] LABS: Basophils % (A) 1 %; Eosinophils # (A) 0.1 k/uL (0-0.7); Eosinophils % (A) 2 %; HCT 46.6 % (39.0-53.0); HGB 15.1 gm/dL (13.0-17.5); Lymphocytes # (A) 0.8 k/uL (1.0-4.8); Lymphocytes % (A) 17 %; MCH 32.2 pg (25.0-35.0); MCHC 32.5 g/dL (31.0-37.0); Mean Platelet Volume 7.4; Monocytes # (A) 0.3 k/uL (0-1.0); Monocytes % (A) 6 %; Neutrophils # (A) 3.6 k/uL (1.3-7.7); Neutrophils % (A) 73 %; Platelet Count 163 k/uL (150-450); RDW 12.8 % (11.5-15.5); WBC 4.9 k/uL (3.8-10.6)
[2021-12-30] MEDS: SYMBICORT 80-4.5 MCG INHALER INHALATION SCH (08:07)
[2021-12-30] MEDS: TAMSULOSIN 0.4 MG CAP.ER.24H PO SCH (08:21)
[2021-12-30] MEDS: ATORVASTATIN 20 MG TAB PO SCH (08:21)
[2021-12-30] MEDS: METOPROLOL TARTRATE 12.5 MG TAB PO SCH (08:21)
[2021-12-30] MEDS: lisinopriL 20 MG TAB PO SCH (08:22)
[2021-12-30] MEDS: amLODIPine 10 MG TAB PO SCH (08:22)
[2021-12-30 10:59] VITALS: BP 129/74; PULSE 56; RESP 18; TEMP 98.2
--- NOTE | 2021-12-30 11:06 | P.PN ---
Subjective This is a 66-year-old gentleman with history of hypertension and no history of any cardiac arrhythmias or coronary artery disease. 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 We have been asked to see in consultation for atrial fibrillation with RVR. Patient presents to the emergency room complaining of lower abdominal discomfort for 5 days. EKG on admission showed evidence of atrial fibrillation with a rapid ventricular response. Patient was treated with IV Cardizem with conversion to sinus rhythm. Patient was started on IV heparin. Echocardiogram showed normal LV function without any significant valvular abnormalities. Patient was transitioned to Eliquis 5mg BID. He was initiated on metoprolol succinate 25mg BID, however, became sinus bradycardic HR 30s-40s and medication was held since 12/25/2021, last dose on 12/24. 12/27/2021 Patient seen and examined at bedside, no acute distress. Patient He was given one dose of metoprolol tartrate 12.5mg. He is maintaining sinus mechanism HR 45- 50s. Patient denies having any chest pain or shortness of breath. EGD/Colonoscopy revealed Gastritis, duodenitis, multiple colonic polyps with snare polypectomy. No bleeding 12/30/2021 Patient seen and examined at bedside, no acute distress. Eliquis currently on hold due to blood bowel movements Telemetry reviewed patient with heart rates of 42-50s. Episode of bradycardia HR 38 yesterday. He is asymptomatic with this bradycardia. Bradycardia mostly in the high 30s at night. His metoprolol has been decrease to 12.5mg BID. PHYSICAL EXAMINATION GENERAL EXAM: Patient is alert and oriented and doesn't appear to be in any acute distress GENERAL: Well-appearing, well-nourished and in no acute distress. NECK: Supple without JVD or thyromegaly. LUNGS: Breath sounds clear to auscultation bilaterally. Respiration equal and unlabored. No wheezes, rales or rhonchi. HEART: Regular rate and rhythm without murmurs, rubs or gallops. S1 and S2 heard. EXTREMITIES: Normal range of motion, no edema. No clubbing or cyanosis. Peripheral pulses intact. ASSESSMENT: Paroxysmal atrial fibrillation with RVR, new onset [id number] score 2 Sinus bradycardia, patient possibly with tachy-barry, asymptomatic Abdominal pain Elevated liver enzymes History of Hypertension Dyslipidemia Plan: We will continue Metoprolol tartrate 12.5mg BID, patient is tolerating well. Ok to hold Eliquis for 2 weeks, then restart from a cardiology perspective Continue lisinopril 40 mg daily, Lipitor 20 mg daily, Norvasc 10 mg daily Consult case management for Eliquis coverage From a cardiology perspective, patient is stable for discharge pending clearance from other consultants and primary. Close follow up with Dr. Riley outpatient. Nurse practitioner note has been reviewed, I agree with documented findings and plan of care. Patient was seen and examined. Objective - Vital Signs Vital signs: Vital Signs Temp 98.2 F 12/30/21 08:00 Pulse 56 L 12/30/21 08:00 Resp 18 12/30/21 08:00 BP 129/74 12/30/21 08:00 Pulse Ox 97 12/30/21 08:00 Intake & Output 12/29/21 12/30/21 12/30/21 18:59 06:59 18:59 Intake Total 1100 485 120 Balance 1100 485 120 Intake: Oral 1100 485 120 Other: Voiding Method Toilet Toilet # Voids 1 1 - Labs CBC & Chem 7: 12/30/21 06:58 12/27/21 08:31 Labs: Abnormal Lab Results - Last 24 Hours (Table) 12/30/21 Range/Units 06:58 Lymphocytes # 0.8 L (1.0-4.8) k/uL
--- NOTE | 2021-12-30 18:59 | P.DS ---
Providers Date of admission: 12/24/21 14:39 Expected date of discharge: 12/30/21 Attending physician: Emile Lomeli Consults: 12/23/21 21:27 Consult Physician Routine Consulting Provider: Jeff Vasquez Consult Reason/Comments: A. fib with RVR new onset Do you want consulting provider notified?: Yes 12/24/21 13:43 Consult Physician Routine Consulting Provider: Warren Adams Consult Reason/Comments: abd pain Do you want consulting provider notified?: Yes 12/27/21 07:49 Consult Physician Routine Consulting Provider: Slava Donovan Consult Reason/Comments: afib rvr Do you want consulting provider notified?: Already Contacted Primary care physician: Beatriz Cantu [facility] Course: Chief Complaint: Dizzy lightheaded This is a pleasant 66-year-old patient of Dr. Beatriz Cantu. Chronic stable medical conditions include hypertension, hyperlipidemia, COPD, BPH. Patient is accompanied by his daughter. Patient for about 2 months been comp laining of lower abdominal pain. Feels bloated. Prior to that he was having a bowel movement about once or twice a day. Now is down to small amounts of Bradley's like bowels. Occasional diarrhea. Abdomen feels a bit bloated. No nausea vomiting. Patient lost about 5 pounds. Patient is afraid to eat. Also noticed to be dizzy lightheaded. In the ER patient was found to be in atrial fibrillation. Started on IV Cardizem and IV heparin. December 25: Patient back in sinus rhythm. On eliquis. Discussed with Dr. Doss. proceed with endoscopy. December 26: Patient switched to Lovenox yesterday. It'll be held after p.m. dose today. Pending EGD coloscopy tomorrow. Discussed with patient. Patient has some loose stool last night. December 27: Patient is having bradycardia yesterday. Beta brit was held. Today in the morning heart rate went up to 140s to 160s. Put back on Cardizem drip. Also put on metoprolol tartrate 12.5 mg 3 times a day. Underwent EGD colonoscopy today.: Found to have gastritis/duodenitis multiple colonic polyps. Biopsy done. Postprocedure having bloating in the stomach. Started on clear liquids. December 28: Heart rate in the 40s yesterday.. Cardizem drip was discontinued yesterday. Lopressor cutback to twice a day. Eliquis started. Abdominal bloating is gone. Discussed with the patient. What the heart rate today. See how he does with eliquis. Hopefully home tomorrow. December 29: Patient had a maroon stool overnight. No abdominal pain. Heart rate did go down to the 40s. On Lopressor twice a day. No dizziness no lightheadedness. Eliquis has been held. Discussed with patient. Follow H&H December 30: No abdominal pain. No BM. Heart rate controlled. Discussed with patient at length. Patient to resume his eliquis once he is having brown stools. Questions answered. Discussion and discharge planning more than 35 minutes Past medical history to include: Hypertension, hyperlipidemia, COPD, BPH Social history: Alone. Retired from [employer]. Smoked a pack and a half a day for close to 40 years stopped about 10 years ago. Family history: Reviewed, noncontributory to presentation Physical examination: VITAL SIGNS: 98.2, 56, 18, 129/74, 97% room air GENERAL: Comfortable EYES: Pupils equal. Conjunctiva normal. HEENT: External appearance of nose and ears normal, oral cavity grossly normal. NECK: JVD not raised; masses not palpable. HEART: Heart sounds irregular; no edema. LUNGS: Respiratory rate normal; decreased breath sounds. ABDOMEN: Soft, . No abdominal tenderness. No guarding rigidity., liver spleen not palpable, no masses palpable. PSYCH: Alert and oriented x3; mood and affect normal. MUSCULOSKELETAL:No Clubbing/cyanosis;muscles-grossly intact, evidence of OA INVESTIGATIONS, reviewed in the clinical context: December 30: Hemoglobin 15.1 White count 5.9 hemoglobin 15.8 platelets 135 potassium 4.3 creatinine 0.91 Troponin I less than 0.012 TSH 1.350 EKG tracing personally reviewed by me-atrial fibrillation. Rate 141 2-D echocardiogram: Moderate concentric LVH. EF 60-65%. Computed tomography scan abdomen and pelvis:: Gallstone. Right kidney stone. Large prostate. Chest x-ray film personally reviewed by me-no infiltrates Assessment and plan: -Paroxysmal atrial fibrillation rate : Controlled Started on IV Cardizem drip-discontinued. Beta brit 12.5 by mouth twice daily. . Eliquis as ordered -Essential hypertension Norvasc 10 mg a day, Zestril 40 mg a day, metoprolol -Hyperlipidemia Lipitor 20 mg a day -COPD in an ex-smoker Symbicort 80/4.52 puffs twice a day. Albuterol when necessary -BPH Flomax 0.4 mg a day -Gastritis and duodenitis Add PPI -Multiple colon polyps Status post biopsy -Acute lower GI bleed with maroon stools. Status post polypectomy.: None today Follow H&H. Disposition: Home Plan - Discharge Summary Discharge Rx Participant: No New Discharge Prescriptions: New Apixaban [Eliquis] 5 mg PO BID 30 Days #60 tab Metoprolol Tartrate [Lopressor] 12.5 mg PO BID #30 tab Continue Albuterol Sulfate [Proair Hfa] 2 puff INHALATION RT-QID PRN PRN Reason: Shortness Of Breath Fluticasone Nasal Filer [Flonase Nasal Filer] 2 spray EA NOSTRIL DAILY Fluticasone Propion/Salmeterol [Wixela 250-50 Inhub] 1 puff INHALATION RT-BID lisinopriL 40 mg PO DAILY Tamsulosin HCl [Flomax] 0.4 mg PO DAILY Loratadine [Claritin] 10 mg PO DAILY amLODIPine [Norvasc] 10 mg PO DAILY Atorvastatin Calcium [Lipitor] 20 mg PO DAILY Discharge Medication List Albuterol Sulfate [Proair Hfa] 2 puff INHALATION RT-QID PRN 12/23/21 [History] Atorvastatin Calcium [Lipitor] 20 mg PO DAILY 12/23/21 [History] Fluticasone Nasal Filer [Flonase Nasal Filer] 2 spray EA NOSTRIL DAILY 12/23/21 [History] Fluticasone Propion/Salmeterol [Wixela 250-50 Inhub] 1 puff INHALATION RT-BID 12/23/21 [History] Loratadine [Claritin] 10 mg PO DAILY 12/23/21 [History] Tamsulosin HCl [Flomax] 0.4 mg PO DAILY 12/23/21 [History] amLODIPine [Norvasc] 10 mg PO DAILY 12/23/21 [History] lisinopriL 40 mg PO DAILY 12/23/21 [History] Apixaban [Eliquis] 5 mg PO BID 30 Days #60 tab 12/27/21 [Rx] Metoprolol Tartrate [Lopressor] 12.5 mg PO BID #30 tab 12/30/21 [Rx] Follow up Appointment(s)/Referral(s): Beatriz Cantu MD [Primary Care Provider] - 1-2 days (Please call office on Sunday for follow up appointment ) Cash Riley MD [STAFF PHYSICIAN] - 1 Week (Office will call you with appointment date and time) Patient Instructions/Handouts: A-fib (Atrial Fibrillation) (DC), A-fib (Atrial Fibrillation) (GEN), Colorectal Polyps (GEN) Activity/Diet/Wound Care/Special Instructions: From a cardiology perspective, recommend holding Eliquis for 2 weeks, then restart. Please seen Dr. Riley outpatient. Discharge Disposition: HOME SELF-CARE
== END 2021-12-30 12:36 | disposition home or self-care (01) | DRG 392 ==
LOC: EC 16:04 → 3SCARD 21:37 → OBSVTOIN 12-24 14:39
PROVIDERS: ADMIT Hospitalist; ATTEND Hospitalist
PROC: 0DBL8ZX Excision of Transverse Colon, Via Natural or Artificial Opening Endoscopic, Diagnostic (ICD-10-PCS; principal; 2021-12-27 11:50)
PROC: 0DB78ZX Excision of Stomach, Pylorus, Via Natural or Artificial Opening Endoscopic, Diagnostic (ICD-10-PCS; principal; 2021-12-27 11:50)
PROC: 0DBP8ZX Excision of Rectum, Via Natural or Artificial Opening Endoscopic, Diagnostic (ICD-10-PCS; principal; 2021-12-27 11:50)
PROC: 0DBN8ZX Excision of Sigmoid Colon, Via Natural or Artificial Opening Endoscopic, Diagnostic (ICD-10-PCS; principal; 2021-12-27 11:50)
PROC: 0DB98ZX Excision of Duodenum, Via Natural or Artificial Opening Endoscopic, Diagnostic (ICD-10-PCS; principal; 2021-12-27 11:50)
PROC: 0DBK8ZX Excision of Ascending Colon, Via Natural or Artificial Opening Endoscopic, Diagnostic (ICD-10-PCS; principal; 2021-12-27 11:50)
DX: K29.70 Gastritis, unspecified, without bleeding (principal); K92.1 Melena; K29.80 Duodenitis without bleeding; J44.9 Chronic obstructive pulmonary disease, unspecified; I48.0 Paroxysmal atrial fibrillation; K22.70 Barrett's esophagus without dysplasia; E78.5 Hyperlipidemia, unspecified; I10 Essential (primary) hypertension; K59.00 Constipation, unspecified; K63.5 Polyp of colon; K76.0 Fatty (change of) liver, not elsewhere classified; K80.20 Calculus of gallbladder without cholecystitis without obstruction; N40.0 Benign prostatic hyperplasia without lower urinary tract symptoms; Z79.51 Long term (current) use of inhaled steroids; Z79.899 Other long term (current) drug therapy; Z87.891 Personal history of nicotine dependence; Z86.010 Personal history of colon polyps
CPT/HCPCS: 36415; 43239; 45385; 71046; 74177; 80053; 81001; 82150; 83605; 83690; 83735; 84443; 84484; 85025; 85027; 85610; 85730; 88305; 93005; 93306; 96374; 96375; 99291

== ENCOUNTER 2024-08-15 11:54 | Inpatient (IN) | payer MEDICARE ==
--- NOTE | 2024-08-15 12:01 | ED ---
Weakness HPI - General Stated complaint: Fall Time Seen by Provider: 08/15/24 11:55 Source: RN notes reviewed, old records reviewed, Caregiver Limitations: no limitations - History of Present Illness Initial comments: This is a 69-year-old male who presents today for evaluation of weakness and a fall. Patient having persistent weakness here in the emergency department was found down after unknown amount of time. Patient does admit to alcohol use with significant alcohol history, patient due to this issue is a poor historian currently MD Complaint: generalized weakness, lack of energy, difficulty walking -: unknown Location: generalized Severity: severe Severity scale (1-10): 10 Consistency: constant Improves with: none Worsens with: none Context: recent illness, history of similar Associated Symptoms: confusion, nausea/vomiting, shortness of breath - Related Data Home Medications Medication Instructions Recorded Confirmed Atorvastatin Calcium [Lipitor] 20 mg PO HS 12/23/21 08/15/24 Loratadine [Claritin] 10 mg PO DAILY 12/23/21 08/15/24 Previous Rx's Medication Instructions Recorded Albuterol Inhaler [Ventolin Hfa 2 puff INHALATION RT-TID each 08/22/24 Inhaler] Docusate [Colace] 100 mg PO BID cap 08/22/24 Metoprolol Tartrate [Lopressor] 25 mg PO BID 30 Days #60 tablet 08/22/24 Allergies Allergy/AdvReac Type Severity Reaction Status Date / Time No Known Allergies Allergy Verified 08/15/24 14:22 Review of Systems ROS Statement: Those systems with pertinent positive or pertinent negative responses have been documented in the HPI. ROS Other: All systems not noted in ROS Statement are negative. Past Medical History Past Medical History: Hyperlipidemia, Hypertension History of Any Multi-Drug Resistant Organisms: None Reported Past Surgical History: No Surgical Hx Reported Additional Past Surgical History / Comment(s): gallstones removed, vasectomy Past Anesthesia/Blood Transfusion Reactions: No Reported Reaction Smoking Status: Former smoker Past Alcohol Use History: Daily Past Drug Use History: None Reported - Past Family History Mother Family Medical History: Cancer Brother(s) Family Medical History: Liver Disease General Exam Limitations: altered mental status General appearance: alert, appears intoxicated, anxious Head exam: Present: atraumatic, normocephalic, normal inspection Eye exam: Present: normal appearance, PERRL, EOMI. Absent: scleral icterus, conjunctival injection, periorbital swelling ENT exam: Present: normal exam, mucous membranes moist Neck exam: Present: normal inspection. Absent: tenderness, meningismus, lymphadenopathy Respiratory exam: Present: normal lung sounds bilaterally. Absent: respiratory distress, wheezes, rales, rhonchi, stridor Cardiovascular Exam: Present: normal rhythm, tachycardia, normal heart sounds. Absent: systolic murmur, diastolic murmur, rubs, gallop, clicks GI/Abdominal exam: Present: soft, normal bowel sounds. Absent: distended, tenderness, guarding, rebound, rigid Extremities exam: Present: normal inspection, full ROM, normal capillary refill. Absent: tenderness, pedal edema, joint swelling, calf tenderness Back exam: Present: normal inspection Neurological exam: Present: alert, oriented X3, CN II-XII intact Psychiatric exam: Present: normal affect, normal mood Skin exam: Present: warm, dry, intact, normal color. Absent: rash Course Vital Signs 08/15/24 08/15/24 08/15/24 11:59 12:06 13:42 Temperature 97.3 F L Pulse Rate 108 H 160 H 124 H Respiratory 18 18 15 Rate Blood Pressure 121/82 124/88 113/81 O2 Sat by Pulse 99 96 97 Oximetry 08/15/24 08/15/24 08/15/24 13:49 14:30 15:00 Temperature Pulse Rate 106 H 104 H 110 H Respiratory 16 16 16 Rate Blood Pressure 107/84 110/78 104/73 O2 Sat by Pulse 99 98 97 Oximetry 08/15/24 08/15/24 08/15/24 16:00 17:00 18:00 Temperature Pulse Rate 108 H 118 H 126 H Respiratory 15 15 17 Rate Blood Pressure 110/81 115/72 114/76 O2 Sat by Pulse 100 97 Oximetry 08/15/24 08/15/24 08/15/24 19:45 21:45 23:00 Temperature 99.1 F Pulse Rate 110 H 110 H 104 H Respiratory 18 18 16 Rate Blood Pressure 102/73 110/78 112/84 O2 Sat by Pulse 96 96 97 Oximetry 08/16/24 08/16/24 08/16/24 00:00 02:00 04:00 Temperature Pulse Rate 103 H 98 101 H Respiratory 18 20 20 Rate Blood Pressure 103/80 110/67 104/80 O2 Sat by Pulse 95 94 L 96 Oximetry 08/16/24 08/16/24 08/16/24 06:00 08:21 12:27 Temperature Pulse Rate 104 H 89 92 Respiratory 19 16 16 Rate Blood Pressure 129/86 120/82 110/81 O2 Sat by Pulse 95 95 Oximetry 08/16/24 15:13 Temperature Pulse Rate 98 Respiratory 16 Rate Blood Pressure 113/81 O2 Sat by Pulse 98 Oximetry - Reevaluation(s) Reevaluation #1: Medical records reviewed Reevaluation #2: Patient symptoms unchanged Reevaluation #3: Patient informed of results questions answered Reevaluation #4: Was pt. sent in by a medical professional or institution (, [facility], [facility]TH[facility]ECE [employer], urgent care, hospital, or senior living...) When possible be specific @ -no Did you speak to anyone other than the patient for history (EMS, parent, family, police, friend...)? What history was obtained from this source @ -no Did you review nursing and triage notes (agree or disagree)? Why? @ -agree Are old charts reviewed (outside hosp., previous admission, EMS record, old EKG, old radiological studies, urgent care reports/EKG's, senior living records)? Report findings @ -yes Differential Diagnosis (chest pain, altered mental status, abdominal pain women, abdominal pain men, vaginal bleeding, weakness, fever, dyspnea, syncope, headache, dizziness, GI bleed, back pain, seizure, CVA, palpatations, mental health, musculoskeletal)? @ -prior EKG interpreted by me (3pts min.). @ -yes X-rays interpreted by me (1pt min.). @ -yes negative for acute disease CT interpreted by me (1pt min.). @ -Yes negative for acute disease U/S interpreted by me (1pt. min.). @ -no What testing was considered but not performed or refused? (CT, X-rays, U/S, labs)? Why? @ -none What meds were considered but not given or refused? Why? @ -none Did you discuss the management of the patient with other professionals (professionals i.e. [facility], MOUTH[employer]ECE [employer], lab, RT, psych nurse, social human services assistants, hangersmith, teacher, executive vice president and chief operating officer, machine adjuster leader case trim)? Give summary @ -no Was smoking cessation discussed for >3mins.? @ -no Was critical care preformed (if so, how long)? @ -yes31 Were there social determinants of health that impacted care today? How? (Homelessness, low income, unemployed, alcoholism, drug addiction, transportatio n, low edu. Level, literacy, decrease access to med. care, penitentiary, rehab)? @ -none Was there de-escalation of care discussed even if they declined (Discuss DNR or withdrawal of care, Hospice)? DNR status @ -no What co-morbidities impacted this encounter? (DM, HTN, Smoking, COPD, CAD, Cancer, CVA, ARF, Chemo, Hep., AIDS, mental health diagnosis, sleep apnea, morbid obesity)? @ -none Was patient admitted / discharged? Hospital course, mention meds given and route, prescriptions, significant lab abnormalities, going to OR and other pertinent info. @ - 69 male to ER after found down unknown downtime patient did not show up for holiday event, patient was found down with history of significant alcohol abuse. Patient is a poor story here in the ER found to be in rhabdomyolysis with abnormal lab values Admitted Undiagnosed new problem with uncertain prognosis? @ -no Drug Therapy requiring intensive monitoring for toxicity (Heparin, Nitro, Insulin, Cardizem)? @ -no Were any procedures done? @ -no Diagnosis/symptom? @ -Alcohol abuse, weakness, rhabdomyolysis transaminitis elevated liver enzymes Acute, or Chronic, or Acute on Chronic? @ -Acute Uncomplicated (without systemic symptoms) or Complicated (systemic symptoms)? @ -Complicated Side effects of treatment? @ -no Exacerbation, Progression, or Severe Exacerbation? @ -exacerbation Poses a threat to life or bodily function? How? (Chest pain, USA, NH, pneumonia, PE, COPD, DKA, ARF, appy, cholecystitis, CVA, Diverticulitis, Homicidal, Suicidal, threat to staff... and all critical care pts) @ -yes chronic alcohol abuse extremes of age Reevaluation #5: Differential Weakness: Hypoglycemia, shock, sepsis, hyponatremia, anemia, infection, NH, ETOH, adverse medicine reaction, overdose, stroke, this is not meant to be an all-inclusive list. - Consultations Consultation #1: Spoke with admitting physicians agreed to admit this patient EKG Findings - EKG Comments: EKG Findings:: EKG is A-fib with RVR 143 QRS 64 QTc 340 - EKG Results: EKG: interpreted by ALANNA EKG shows: tachycardia, atrial fibrillation Medical Decision Making - Medical Decision Making 69 male to ER after found down unknown downtime patient did not show up for holiday event, patient was found down with history of significant alcohol abuse. Patient is a poor story here in the ER found to be in rhabdomyolysis with abnormal lab values - Lab Data Result diagrams: 08/22/24 06:05 08/22/24 06:05 Lab Results 08/15/24 08/15/24 08/15/24 Range/Units 12:43 12:43 12:43 WBC 7.4 (3.8-10.6) k/uL RBC 4.63 (4.30-5.90) m/uL Hgb 15.6 (13.0-17.5) gm/dL Hct 45.9 (39.0-53.0) % MCV 99.1 (80.0-100.0) fL MCH 33.7 (25.0-35.0) pg MCHC 34.0 (31.0-37.0) g/dL RDW 11.7 (11.5-15.5) % Plt Count 117 L (150-450) k/uL MPV 7.9 Neutrophils % 87 % Lymphocytes % 3 % Monocytes % 7 % Eosinophils % 1 % Basophils % 0 % Neutrophils # 6.4 (1.3-7.7) k/uL Lymphocytes # 0.2 L (1.0-4.8) k/uL Monocytes # 0.5 (0-1.0) k/uL Eosinophils # 0.1 (0-0.7) k/uL Basophils # 0.0 (0-0.2) k/uL PT 11.0 (10.0-12.5) sec INR 1.0 (<1.2) APTT 32.0 H (22.0-30.0) sec Sodium (137-145) mmol/L Potassium (3.5-5.1) mmol/L Chloride (98-107) mmol/L Carbon Dioxide (22-30) mmol/L Anion Gap mmol/L BUN (9-20) mg/dL Creatinine (0.66-1.25) mg/dL Est GFR (CKD-EPI)AfAm (>60 ml/min/1.73 sqM) Est GFR (CKD-EPI)NonAf (>60 ml/min/1.73 sqM) Glucose (74-99) mg/dL Lactic Ac Sepsis Rflx Plasma Lactic Acid Fredy 2.8 H* (0.7-2.0) mmol/L Calcium (8.4-10.2) mg/dL Phosphorus (2.5-4.5) mg/dL Magnesium (1.6-2.3) mg/dL Total Bilirubin (0.2-1.3) mg/dL AST (17-59) U/L ALT (4-49) U/L Alkaline Phosphatase (38-126) U/L Ammonia <9 (<30) umol/L Creatine Kinase (55-170) U/L Troponin I (0.000-0.034) ng/mL NT-Pro-B Natriuret Pep pg/mL Total Protein (6.3-8.2) g/dL Albumin (3.5-5.0) g/dL Lipase (23-300) U/L TSH (0.465-4.680) mIU/L Serum Alcohol mg/dL 08/15/24 08/15/24 08/15/24 Range/Units 12:43 13:12 14:02 WBC (3.8-10.6) k/uL RBC (4.30-5.90) m/uL Hgb (13.0-17.5) gm/dL Hct (39.0-53.0) % MCV (80.0-100.0) fL MCH (25.0-35.0) pg MCHC (31.0-37.0) g/dL RDW (11.5-15.5) % Plt Count (150-450) k/uL MPV Neutrophils % % Lymphocytes % % Monocytes % % Eosinophils % % Basophils % % Neutrophils # (1.3-7.7) k/uL Lymphocytes # (1.0-4.8) k/uL Monocytes # (0-1.0) k/uL Eosinophils # (0-0.7) k/uL Basophils # (0-0.2) k/uL PT (10.0-12.5) sec INR (<1.2) APTT (22.0-30.0) sec Sodium 132 L (137-145) mmol/L Potassium 4.5 (3.5-5.1) mmol/L Chloride 105 (98-107) mmol/L Carbon Dioxide 22 (22-30) mmol/L Anion Gap 5 mmol/L BUN 41 H (9-20) mg/dL Creatinine 0.92 (0.66-1.25) mg/dL Est GFR (CKD-EPI)AfAm >90 (>60 ml/min/1.73 sqM) Est GFR (CKD-EPI)NonAf 84 (>60 ml/min/1.73 sqM) Glucose 120 H (74-99) mg/dL Lactic Ac Sepsis Rflx Y Plasma Lactic Acid Fredy (0.7-2.0) mmol/L Calcium 8.5 (8.4-10.2) mg/dL Phosphorus 4.0 (2.5-4.5) mg/dL Magnesium 2.0 (1.6-2.3) mg/dL Total Bilirubin 2.1 H (0.2-1.3) mg/dL AST 273 H (17-59) U/L ALT 103 H (4-49) U/L Alkaline Phosphatase 54 (38-126) U/L Ammonia (<30) umol/L Creatine Kinase 7299 H* (55-170) U/L Troponin I 0.054 H* (0.000-0.034) ng/mL NT-Pro-B Natriuret Pep 5510 pg/mL Total Protein 5.5 L (6.3-8.2) g/dL Albumin 3.2 L (3.5-5.0) g/dL Lipase 69 (23-300) U/L TSH 0.852 (0.465-4.680) mIU/L Serum Alcohol <10 mg/dL - EKG Data -: EKG Interpreted by Ca - Radiology Data Radiology results: report reviewed (CT brain C-spine negative for acute disease chest and pelvis x-ray with foot x-ray negative for traumatic injury), image reviewed Critical Care Time Critical Care Time: Yes Total Critical Care Time: 31 Disposition Clinical Impression: Atrial fibrillation with rapid ventricular response, Abnormal liver enzymes, Rhabdomyolysis, Elevated troponin, Alcohol abuse Disposition: ADMITTED IP TO THIS [facility] Condition: Serious Is patient prescribed a controlled substance at d/c from ED?: No Time of Disposition: 14:40
[2024-08-15] MEDS: SODIUM CHLORIDE 0.9% 1,000 ML IV STA ×3 (12:39→15:38)
[2024-08-15] MEDS: LORazepam 2 MG/ML INJ IV STA (12:39)
[2024-08-15] MEDS: DILTIAZEM 125 MG in SODIUM CHLORIDE 0.9% 100 ML IV SCH (12:49)
[2024-08-15] MEDS: DILTIAZEM DRIP BOLUS FROM BAG 1 MG SOLN IV ONE (12:50)
[2024-08-15 12:55] LABS: Basophils % (A) 0 %; Eosinophils # (A) 0.1 k/uL (0-0.7); Eosinophils % (A) 1 %; HCT 45.9 % (39.0-53.0); HGB 15.6 gm/dL (13.0-17.5); Lymphocytes # (A) 0.2 k/uL (1.0-4.8); Lymphocytes % (A) 3 %; MCH 33.7 pg (25.0-35.0); MCV 99.1 fL (80.0-100.0); Mean Platelet Volume 7.9; Monocytes # (A) 0.5 k/uL (0-1.0); Monocytes % (A) 7 %; Neutrophils # (A) 6.4 k/uL (1.3-7.7); Neutrophils % (A) 87 %; Platelet Count 117 k/uL (150-450); RBC 4.63 m/uL (4.30-5.90); RDW 11.7 % (11.5-15.5); WBC 7.4 k/uL (3.8-10.6)
[2024-08-15 13:54] LABS: ALT 103 U/L (4-49); AST 273 U/L (17-59); African American GFR (CKD) >90 (>60 ml/min/1.73 sqM); Albumin 3.2 g/dL (3.5-5.0); Alcohol <10 mg/dL; Alkaline Phosphatase 54 U/L (38-126); Anion Gap 5 mmol/L; Blood Urea Nitrogen 41 mg/dL (9-20); Calcium 8.5 mg/dL (8.4-10.2); Carbon Dioxide 22 mmol/L (22-30); Chloride 105 mmol/L (98-107); Glucose 120 mg/dL (74-99); Lipase 69 U/L (23-300); Non-African American GFR(CKD) 84 (>60 ml/min/1.73 sqM); Potassium 4.5 mmol/L (3.5-5.1); Sodium 132 mmol/L (137-145); Total Bilirubin 2.1 mg/dL (0.2-1.3); Total Protein 5.5 g/dL (6.3-8.2)
[2024-08-15 14:00] LABS: NT-Pro-B-Type Natriuretic Pept 5510 pg/mL
[2024-08-15 14:02] LABS: Lactic Acid, Venous 2.8 mmol/L (0.7-2.0)
[2024-08-15 14:35] LABS: Creatine Kinase 7299 U/L (55-170)
[2024-08-15] MEDS ORDERED: MORPHINE ORAL SOLN 10 MG/5 ML CUP PO PRN (14:43)
[2024-08-15] MEDS ORDERED: NALOXONE 0.4 MG/ML 1 ML VIAL IV PRN (14:43)
[2024-08-15] MEDS ORDERED: LORazepam 1 MG TAB PO PRN ×3 (14:45)
[2024-08-15] MEDS: SODIUM CHLORIDE 0.9% 1,000 ML IV SCH (15:38)
[2024-08-15] MEDS: SODIUM CHLORIDE 0.9% 500 ML 500 ML IV STA (15:39)
--- NOTE | 2024-08-15 15:42 | XR ---
EXAMINATION TYPE: XR pelvis AP view DATE OF EXAM: 08/15/2024 3:33 PM COMPARISON: None CLINICAL INDICATION: Male, 68 years old with history of fall; pain TECHNIQUE: XR pelvis AP view, examined in a single projection. FINDINGS: There is no evidence of fracture or dislocation. There is no soft tissue abnormality. No a bnormal calcifications are present. Multilevel degenerative changes of the lower spine. The hips appear intact. Osteophyte formation of the superior acetabulum bilaterally with mild joint space narrowing. IMPRESSION: No acute osseous pathology. Mild to moderate degeneration changes of the hip. [facility], , 08/15/2024 3:40 PM
--- NOTE | 2024-08-15 15:42 | XR ---
EXAMINATION TYPE: XR chest 2V DATE OF EXAM: 08/15/2024 3:33 PM COMPARISON: Chest radiographs from 12/24/2021 CLINICAL INDICATION: Male, 68 years old with history of Weakness; [facility] TECHNIQUE: XR chest 2V Frontal and lateral views of the chest. FINDINGS: Lungs/Pleura: There is no evidence of pleural effusion, focal consolidation, or pneumothorax. Pulmonary vascularity: Unremarkable. Heart/mediastinum: Cardiomediastinal silhouette is unremarkable. Musculoskeletal: No acute osseous pathology. IMPRESSION: No acute cardiopulmonary disease/process. [facility], , 08/15/2024 3:39 PM
--- NOTE | 2024-08-15 15:45 | XR ---
EXAMINATION TYPE: XR foot limited RT DATE OF EXAM: 08/15/2024 3:33 PM COMPARISON: None CLINICAL INDICATION: Male, 68 years old with history of FALL; pain TECHNIQUE: XR foot limited RT examined in the AP, oblique, and lateral projections. FINDINGS: No evidence of any acute osseous pathology. Calcaneal plantar spurring is present. Calcaneal Achilles enthesophyte. Multifocal degeneration changes throughout the joints of the foot with osteophyte form ation and joint space narrowing. IMPRESSION: 1. No evidence of acute fracture. 2. Moderate degeneration changes throughout the joints of the foot. [facility], , 08/15/2024 3:42 PM
--- NOTE | 2024-08-15 15:53 | CT ---
EXAMINATION TYPE: CT brain cspine wo con DATE OF EXAM: 08/15/2024 3:39 PM COMPARISON: None. CLINICAL INDICATION: Male, 68 years old with history of fall; fall/ rt side brusing on lower body miguelina n TECHNIQUE: Brain: Multiple axial CT images of the brain were obtained without IV contrast. Cspine: Axial CT images from the skull base to the inferior aspect of T2 we obtained without intraven ous contrast. Coronal and sagittal reformatted images were also reviewed. . CT DLP: 1437.9 mGycm, Automated exposure control for dose reduction was used. FINDINGS: Brain: Extra-axial spaces: No abnormal extra-axial fluid collections. Ventricular system: Within normal limits Cerebral parenchyma: Some gyriform high density along the cortex of the left frontal lobe cortex seri es 203 image 32. No acute intraparenchymal hemorrhage or mass effect. The anton-white junction is wel l differentiated. Cerebellum: Unremarkable. Mass effect: No evidence of midline shift. Intracranial vasculature: unremarkable Soft tissues: Right cheek soft tissue edema. Calvarium/osseous structures: No depressed skull fracture. Paranasal sinuses and mastoid air cells: Clear. Visualized orbits: Orbital contents are intact. Cervical spine: Fracture: None. Osseous structures: Large osteophytes anterior to the spine on the anterior longitudinal ligament ext ending from C2 to C7 impresses upon the esophagus. Multilevel degenerative disc disease changes with endplate spurring and disc osteophyte complex's. Vertebral alignment: Within normal limits. Spinal canal/Neural Foramina: No evidence of significant spinal canal narrowing. No evidence for sign ificant neural foraminal stenosis. Neck soft tissues: Prevertebral soft tissues are within normal limits. Other: The airway is patent. The lung apices are clear. IMPRESSION: 1. No acute intracranial process identified area of hypodensity in the cortex of the posterior left frontal lobe which is curvilinear suggestive of mineralization or prior hemorrhage. This can be confi rmed with MRI. 2. Right cheek edema No evidence of fracture. 3. No evidence of cervical spine fracture. 4. Moderate multilevel degenerative disc disease. 5. Large osteophytes anterior to the spine on the anterior longitudinal ligament extending from C2 t o C7 impresses upon the esophagus. Correlate for esophageal dysmotility. [facility], , 08/15/2024 3:51 PM
[2024-08-15 16:46] LABS: Appearance,Urine Clear (Clear); Bilirubin,Urine Negative (Negative); Blood,Urine Large (Negative); Color,Urine Yellow; Glucose,Urine (UA) Negative (Negative); Hyaline Casts,Urine 8 /lpf (0-2); Ketones,Urine 1+ (Negative); Leukocyte Esterase,Urine Negative (Negative); Mucus,Urine Occasional /hpf; Nitrite,Urine Negative (Negative); PH, Urine 5.5 (5.0-8.0); Protein,Urine 1+ (Negative); RBC,Urine 1 /hpf (0-5); Specific Gravity,Urine 1.019 (1.001-1.035); Squamous Epithelial Cell,Urine <1 /hpf (0-4); Urobilinogen,Urine <2.0 mg/dL (<2.0); WBC,Urine 4 /hpf (0-5)
[2024-08-15] MEDS: DEXTROSE 5%-0.45% NACL 1,000 ML IV SCH (17:11)
[2024-08-15] MEDS: LORazepam 2 MG/ML INJ IV PRN ×3 (17:20→20:42)
[2024-08-15] MEDS: fentaNYL (PF) 50 MCG/ML 2 ML AMP IVP STA (22:01)
[2024-08-16] MEDS: MORPHINE ORAL SOLN 10 MG/5 ML CUP PO PRN (05:30)
[2024-08-16 06:55] LABS: ALT 95 U/L (4-49); AST 178 U/L (17-59); African American GFR (CKD) >90 (>60 ml/min/1.73 sqM); Albumin 2.8 g/dL (3.5-5.0); Alkaline Phosphatase 46 U/L (38-126); Anion Gap 4 mmol/L; Blood Urea Nitrogen 21 mg/dL (9-20); Calcium 8.2 mg/dL (8.4-10.2); Carbon Dioxide 20 mmol/L (22-30); Chloride 108 mmol/L (98-107); Glucose 118 mg/dL (74-99); Non-African American GFR(CKD) >90 (>60 ml/min/1.73 sqM); Phosphorus 2.5 mg/dL (2.5-4.5); Potassium 3.6 mmol/L (3.5-5.1); Sodium 132 mmol/L (137-145); Total Bilirubin 1.5 mg/dL (0.2-1.3); Total Protein 5.1 g/dL (6.3-8.2)
[2024-08-16 07:02] LABS: Basophils % (A) 0 %; Eosinophils % (A) 1 %; HCT 36.9 % (39.0-53.0); Lymphocytes # (A) 0.4 k/uL (1.0-4.8); Lymphocytes % (A) 9 %; MCH 33.6 pg (25.0-35.0); MCHC 33.3 g/dL (31.0-37.0); MCV 100.9 fL (80.0-100.0); Monocytes # (A) 0.4 k/uL (0-1.0); Monocytes % (A) 9 %; Neutrophils % (A) 78 %; RBC 3.66 m/uL (4.30-5.90); RDW 12.2 % (11.5-15.5); WBC 3.9 k/uL (3.8-10.6)
[2024-08-16 07:12] LABS: HGB 12.3 gm/dL (13.0-17.5)
[2024-08-16 07:38] LABS: Platelet Count 93 k/uL (150-450)
--- NOTE | 2024-08-16 09:46 | P.NPCON ---
History of Present Illness - Reason for Consult acute renal failure - History of Present Illness Reason for consultation: Rhabdomyolysis History of present illness: Patient is a 68-year-old male seen in renal consultation for rhabdomyolysis. Patient was seen and examined in the emergency room. Patient is not a very reliable historian. Patient came to the hospital due to being found down by his daughter. According to the daughter he was down for 3 days. He was unable to get up. Did not eat or drink during this timeframe. He was noted to be in A- fib with RVR and is maintained on Cardizem drip. He received 2.5 L of normal saline bolus and is currently maintained on D5 half-normal saline running at 80 cc an hour. CK level was 7299 on admission and is 2245 today. GFR is at baseline. He was on lisinopril outpatient which is currently held. Vital signs are stable. General: No acute distress. HEENT: Head exam is unremarkable. LUNGS: No audible rhonchi or wheezes. HEART: Irregular rate and rhythm. ABDOMEN: Nontender. EXTREMITITES: No edema. Past Medical History Past Medical History: Hyperlipidemia, Hypertension History of Any Multi-Drug Resistant Organisms: None Reported Past Surgical History: No Surgical Hx Reported Additional Past Surgical History / Comment(s): gallstones removed, vasectomy Past Anesthesia/Blood Transfusion Reactions: No Reported Reaction Smoking Status: Former smoker Past Alcohol Use History: Daily Past Drug Use History: None Reported - Past Family History Mother Family Medical History: Cancer Brother(s) Family Medical History: Liver Disease Medications and Allergies Home Medications Medication Instructions Recorded Confirmed Type Atorvastatin Calcium [Lipitor] 20 mg PO HS 12/23/21 08/15/24 History Loratadine [Claritin] 10 mg PO DAILY 12/23/21 08/15/24 History lisinopriL 40 mg PO DAILY 12/23/21 08/15/24 History Apixaban [Eliquis] 5 mg PO BID 30 Days #60 tab 12/27/21 08/15/24 Rx Metoprolol Tartrate [Lopressor] 25 mg PO DAILY 08/15/24 08/15/24 History Allergies Allergy/AdvReac Type Severity Reaction Status Date / Time No Known Allergies Allergy Verified 08/15/24 14:22 Physical Exam Vitals: Vital Signs Temp Pulse Resp BP Pulse Ox 08/16/24 08:21 89 16 120/82 95 08/16/24 06:00 104 H 19 129/86 95 08/16/24 04:00 101 H 20 104/80 96 08/16/24 02:00 98 20 110/67 94 L 08/16/24 00:00 103 H 18 103/80 95 08/15/24 23:00 104 H 16 112/84 97 08/15/24 21:45 110 H 18 110/78 96 08/15/24 19:45 99.1 F 110 H 18 102/73 96 08/15/24 18:00 126 H 17 114/76 97 08/15/24 17:00 118 H 15 115/72 08/15/24 16:00 108 H 15 110/81 100 08/15/24 15:00 110 H 16 104/73 97 08/15/24 14:30 104 H 16 110/78 98 08/15/24 13:49 106 H 16 107/84 99 08/15/24 13:42 124 H 15 113/81 97 08/15/24 12:06 160 H 18 124/88 96 08/15/24 11:59 97.3 F L 108 H 18 121/82 99 Intake and Output 08/15/24 08/16/24 08/16/24 22:59 06:59 14:59 Output Total 890 Balance -890 Output: Urine 890 Uretheral (Jones) 890 Results - Lab Results Most recent lab results Calcium 8.2 mg/dL (8.4-10.2) L 08/16/24 06:09 Phosphorus 2.5 mg/dL (2.5-4.5) 08/16/24 06:09 Magnesium 2.0 mg/dL (1.6-2.3) 08/16/24 06:09 08/16/24 06:09 08/16/24 06:09 Assessment and Plan Plan: Assessment: 1. Rhabdomyolysis secondary to immobility. CK levels trending down. UA with large blood and no RBCs suggestive of myoglobinuria. 2. Nongap metabolic acidosis secondary to IV fluids. 3. A-fib with RVR maintained on Cardizem drip. 4. Hyponatremia secondary to hypotonic fluid infusion. Plan: Change IV fluids back to normal saline. Repeat CK levels in the morning. Continue to monitor renal function and urine output. 2 amp sodium bicarb IV push once today. Thank you for the consultation. I will continue to follow the patient with you during his hospital stay.
[2024-08-16] MEDS: SODIUM CHLORIDE 0.9% 1,000 ML IV SCH (10:36)
[2024-08-16] MEDS: SODIUM BICARB 8.4% 50 ML SYR (1 MEQ/ML) IV STA (10:57)
[2024-08-16] MEDS: METOPROLOL TARTRATE 25 MG TAB PO SCH ×2 (12:10→19:35)
--- NOTE | 2024-08-16 13:19 | P.CRDCN ---
History of Present Illness History of present illness: HISTORY OF PRESENT ILLNESS: This is a 68-year-old male with a past medical history significant for atrial fibrillation, hyperlipidemia, hypertension, former nicotine dependence, alcohol abuse. Patient does not follow with a generator man. We have been asked to see the patient in consultation for A-fib with RVR. Patient examined at the bedside in the emergency room. Apparently, the patient tripped and fell about 3 days ago. He was unable to get up and laid on the floor for 3 days. He was found by his daughter. Patient does not believe that he lost consciousness. Patient was found to have rhabdomyolysis. Patient additionally was found to be in A-fib with RVR. He is currently on Cardizem drip at 5 mg an hour. Bedside telemetry reveals atrial fibrillation with a heart rate in the 90s. Patient is a former cigarette smoker. Does report daily alcohol use. He states that he drinks at least a sixpack a day. DIAGNOSTICS: - EKG reveals A-fib with RVR - Chest xray negative for acute process - Laboratory data: WBC 3.9. Hemoglobin 12.3. Platelet count 93. Sodium 132. Potassium 3.6. BUN 21. Creatinine 0.67. Magnesium 2.0. Creatinine kinase 7299. Repeat 2245. Troponin 0.054. 0.056. 0.046. - Current home cardiac medications include Eliquis 5 mg twice a day, Lipitor 20 mg at night, metoprolol tartrate 25 mg daily, lisinopril 40 mg daily - Most recent echocardiogram obtained in December 2021 revealed ejection fraction 60 to 65%, mild aortic regurgitation, mild aortic stenosis, mild tricuspid regurgitation - Cardiac catheterization history: Unknown REVIEW OF SYSTEMS: At the time of my exam: CONSTITUTIONAL: Denies fever or chills. HEENT: Denies blurred vision, vision changes, or eye pain. Denies hemoptysis CARDIOVASCULAR: Denies chest pain. Denies orthopnea. Denies PND. Denies palpitations RESPIRATORY: Denies shortness of breath. GASTROINTESTINAL: Denies abdominal pain. Denies nausea or vomiting. HEMATOLOGIC: Denies bleeding disorders. GENITOURINARY: Denies any blood in urine. SKIN: Denies pruitis. Denies rash. Reports bruising to right side of his body. PHYSICAL EXAM: VITAL SIGNS: Reviewed. GENERAL: Well-developed in no acute distress. HEENT: Head is normocephalic. Pupils are equal, round. Sclerae anicteric. Mucous membranes of the mouth are moist. Neck supple. No JVD or thyromegaly LUNGS: Respirations even and unlabored. Lungs essentially clear to auscultation bilaterally. HEART: Irregular rate and rhythm. S1 and S2 heard. ABDOMEN: Soft. Nondistended. Nontender. EXTREMITIES: Normal range of motion. No clubbing or cyanosis. Peripheral pulses intact. No lower extremity edema. Patient with bruises and erythema to right side of body. NEUROLOGIC: Awake and alert. Oriented x 3. ASSESSMENT: Atrial fibrillation with RVR, likely persistent Rhabdomyolysis Elevated troponins, flat, type II NV, no evidence of acute coronary syndrome Hypertension Hyperlipidemia Former nicotine dependence Alcohol abuse, patient drinks at least 6 beers daily Frequent falls per patient PLAN: Obtain 2D echo to assess cardiac structure and function Discontinue IV Cardizem Increase metoprolol to 25 mg twice a day Continue telemetry monitoring Abstinence from alcohol recommended Patient does report having frequent falls at home and drinks alcohol daily. Consider risk versus benefit of continuing anticoagulation post discharge. Further recommendations pending patient course Nurse practitioner note has been reviewed by physician. Signing provider agrees with the documented findings, assessment, and plan of care documented by PHYSICIAN PRACTICE ADMINISTRATOR as a scribe. Past Medical History Past Medical History: Hyperlipidemia, Hypertension History of Any Multi-Drug Resistant Organisms: None Reported Past Surgical History: No Surgical Hx Reported Additional Past Surgical History / Comment(s): gallstones removed, vasectomy Past Anesthesia/Blood Transfusion Reactions: No Reported Reaction Smoking Status: Former smoker Past Alcohol Use History: Daily Past Drug Use History: None Reported - Past Family History Mother Family Medical History: Cancer Brother(s) Family Medical History: Liver Disease Medications and Allergies Home Medications Medication Instructions Recorded Confirmed Type Atorvastatin Calcium [Lipitor] 20 mg PO HS 12/23/21 08/15/24 History Loratadine [Claritin] 10 mg PO DAILY 12/23/21 08/15/24 History lisinopriL 40 mg PO DAILY 12/23/21 08/15/24 History Apixaban [Eliquis] 5 mg PO BID 30 Days #60 tab 12/27/21 08/15/24 Rx Metoprolol Tartrate [Lopressor] 25 mg PO DAILY 08/15/24 08/15/24 History Allergies Allergy/AdvReac Type Severity Reaction Status Date / Time No Known Allergies Allergy Verified 08/15/24 14:22 Physical Exam Vitals: Vital Signs Temp Pulse Resp BP Pulse Ox 08/16/24 12:27 92 16 110/81 08/16/24 08:21 89 16 120/82 95 08/16/24 06:00 104 H 19 129/86 95 08/16/24 04:00 101 H 20 104/80 96 08/16/24 02:00 98 20 110/67 94 L 08/16/24 00:00 103 H 18 103/80 95 08/15/24 23:00 104 H 16 112/84 97 08/15/24 21:45 110 H 18 110/78 96 08/15/24 19:45 99.1 F 110 H 18 102/73 96 08/15/24 18:00 126 H 17 114/76 97 08/15/24 17:00 118 H 15 115/72 08/15/24 16:00 108 H 15 110/81 100 08/15/24 15:00 110 H 16 104/73 97 08/15/24 14:30 104 H 16 110/78 98 08/15/24 13:49 106 H 16 107/84 99 08/15/24 13:42 124 H 15 113/81 97 Intake and Output 08/15/24 08/16/24 08/16/24 22:59 06:59 14:59 Intake Total 114.25 Output Total 890 Balance -890 114.25 Intake: Intake, IV Titration 114.25 Amount Diltiazem 125 mg In 114.25 Sodium Chloride 0.9% 100 ml @ 5 MG/HR 5 mls/hr IV .Q24H [facility] Rx#:[id number] Output: Urine 890 Uretheral (Jones) 890 Results 08/16/24 06:09 08/16/24 06:09 Cardiac Enzymes 08/15/24 08/15/24 08/15/24 Range/Units 12:43 13:12 17:35 AST 273 H (17-59) U/L Troponin I 0.054 H* 0.056 H* (0.000-0.034) ng/mL 08/15/24 08/16/24 Range/Units 20:51 06:09 AST 178 H (17-59) U/L Troponin I 0.046 H* (0.000-0.034) ng/mL Coagulation 08/15/24 Range/Units 12:43 PT 11.0 (10.0-12.5) sec APTT 32.0 H (22.0-30.0) sec CBC 08/15/24 08/16/24 Range/Units 12:43 06:09 WBC 7.4 3.9 (3.8-10.6) k/uL RBC 4.63 3.66 L (4.30-5.90) m/uL Hgb 15.6 12.3 L D (13.0-17.5) gm/dL Hct 45.9 36.9 L (39.0-53.0) % Plt Count 117 L 93 L (150-450) k/uL Comprehensive Metabolic Panel 08/15/24 08/16/24 Range/Units 13:12 06:09 Sodium 132 L 132 L (137-145) mmol/L Potassium 4.5 3.6 (3.5-5.1) mmol/L Chloride 105 108 H (98-107) mmol/L Carbon Dioxide 22 20 L (22-30) mmol/L BUN 41 H 21 H (9-20) mg/dL Creatinine 0.92 0.67 (0.66-1.25) mg/dL Glucose 120 H 118 H (74-99) mg/dL Calcium 8.5 8.2 L (8.4-10.2) mg/dL AST 273 H 178 H (17-59) U/L ALT 103 H 95 H (4-49) U/L Alkaline Phosphatase 54 46 (38-126) U/L Total Protein 5.5 L 5.1 L (6.3-8.2) g/dL Albumin 3.2 L 2.8 L (3.5-5.0) g/dL Current Medications Generic Name Dose Route Start Last Admin Trade Name Freq PRN Reason Stop Dose Admin Apixaban 5 mg 08/16/24 21:00 Apixaban 5 Mg Tab PO BID SHENG Protocol Diltiazem HCl 125 mg/ Sodium 125 mls @ 5 mls/hr 08/15/24 12:15 08/16/24 11:40 Chloride IV 5 mg/hr .Q24H SHENG 5 mls/hr Administration 5 MG/HR Sodium Chloride 1,000 mls @ 100 mls/hr 08/16/24 09:45 08/16/24 10:36 Saline 0.9% IV 100 mls/hr .Q10H SHENG Administration Loratadine 10 mg 08/17/24 09:00 Loratadine 10 Mg Tab PO DAILY SHENG Lorazepam 2 mg 08/15/24 14:45 Lorazepam 1 Mg Tab PO Q3HR PRN Ciwa 8 To 9 Lorazepam 2 mg 08/15/24 14:45 Lorazepam 1 Mg Tab PO Q2HR PRN Ciwa 10 or greater Lorazepam 1 mg 08/15/24 14:45 Lorazepam 1 Mg Tab PO Q4HR PRN Ciwa 6 To 7 Lorazepam 0.5 mg 08/15/24 14:45 Lorazepam 0.5 Mg Tab PO Q4HR PRN Ciwa 4 To 5 Lorazepam 2 mg 08/15/24 14:45 08/15/24 17:20 Lorazepam 2 Mg/Ml Inj IV 08/17/24 14:46 2 mg Q10M PRN Administration CIWA 16 or higher Lorazepam 1 mg 08/15/24 14:45 08/15/24 20:42 Lorazepam 2 Mg/Ml Inj IV 1 mg Q2HR PRN Administration CIWA 8 or 9 Lorazepam 1 mg 08/15/24 14:45 08/15/24 18:17 Lorazepam 2 Mg/Ml Inj IV 1 mg Q1HR PRN Administration CIWA 10 to 15 Metoprolol Tartrate 25 mg 08/16/24 10:45 08/16/24 12:10 Metoprolol Tartrate 25 Mg Tab PO Not Given DAILY SHENG Morphine Sulfate 10 mg 08/16/24 04:10 08/16/24 05:30 Morphine Oral Soln 10 Mg/5 Ml Cup PO 10 mg Q4HR PRN Administration Severe Pain (Scale 7 to 10) Naloxone HCl 0.2 mg 08/15/24 14:43 Naloxone 0.4 Mg/Ml 1 Ml Vial IV Q2M PRN Opioid Reversal Ondansetron HCl 4 mg 08/15/24 14:43 Ondansetron 4 Mg/2 Ml Vial IVP Q8HR PRN Nausea And Vomiting Intake and Output 08/15/24 08/16/24 08/16/24 22:59 06:59 14:59 Intake Total 114.25 Output Total 890 Balance -890 114.25 Intake: Intake, IV Titration 114.25 Amount Diltiazem 125 mg In 114.25 Sodium Chloride 0.9% 100 ml @ 5 MG/HR 5 mls/hr IV .Q24H [facility] Rx#:[id number] Output: Urine 890 Uretheral (Jones) 890 08/16/24 06:09 08/16/24 06:09
--- NOTE | 2024-08-16 13:57 | P.HPIM ---
History of Present Illness H&P Date: 08/16/24 History of present illness; patient is 68-year-old gentleman with past medical history significant for hypertension, hyperlipidemia, COPD, BPH, A-fib presented the ER because of fall. Patient is not a good historian most of the history has been obtained from the EMR. Patient was apparently found laying on the floor by his daughter. Patient was last seen in normal health by his daughter 3 days a go. Patient has not been eating and drinking for 3 days. There was no obvious trauma. There was no mention of any loss of consciousness. There was no witness to the extremity. There is no complaint of fever or chills. There is no complaint of nausea, vomiting abdominal pain. Because of the fall, patient brought to the ER Initial lab work done in the ER showed WBC 9.4, hemoglobin 15.6, platelet count 117, sodium 132, potassium 4.5, BUN 41, creatinine 0.92, glucose 120, bilirubin 2.1, AST 273, ALT 103, CK7 299, troponin 0.054 UA showing large amount of urine blood, urine RBC 1 serum alcohol level less than 10 EKG done in the ER showed heart rate of 143, irregular rhythm, no ST segment e levation or depression seen, no T-wave inversions seen. Chest x-ray done in the ER showed no acute cardiopulmonary process X-ray foot done showed no evidence of acute fracture CT head done showed no acute intracranial process, did show hypodensity in the cortex of the posterior left frontal lobe suggestive of mineralization or prior hemorrhage. CT cervical spine done showed no evidence of cervical spine fracture, did show large osteophyte anterior to the spine on the anterior longitudinal ligament extending from C2-C7 X-ray pelvis done showed no acute osseous pathology Patient admitted to internal medicine service REVIEW OF SYSTEMS: Review of system cannot be obtained as patient very lethargic PHYSICAL EXAMINATION: GENERAL: The patient is alert to self, chronically ill looking HEENT: Pupils are round and equally reacting to light. EOMI. No scleral icterus. No conjunctival pallor. Normocephalic, atraumatic. No pharyngeal erythema. No thyromegaly. CARDIOVASCULAR: S1 and S2 present. No murmurs, rubs, or gallops. PULMONARY: Chest is clear to auscultation, no wheezing or crackles. ABDOMEN: Soft, nontender, nondistended, normoactive bowel sounds. No palpable organomegaly. MUSCULOSKELETAL: No joint swelling or deformity. EXTREMITIES: No cyanosis, clubbing, or pedal edema. NEUROLOGICAL: Gross neurological examination did not reveal any focal deficits. SKIN: No rashes. Assessment and plan Fall Rhabdomyolysis Acute transaminitis A-fib with RVR Nonanion gap metabolic acidosis Hyponatremia Monitor vital signs Monitor CBC Monitor CMP Continue telemetry monitoring Troponins Trend CKs Trend LFTs Start Cardizem drip Start bicarb drip Hold Lipitor Hold lisinopril Consult cardiology Consult nephrology Labs and medication were reviewed.. Continue same treatment. Continue with symptomatic treatment. Resume home medication. Monitor labs and vitals. DVT and GI prophylaxis. Further recommendations as per clinical course of the patient Dictation was produced using [employer] dictation software. please excuse any grammatical, word or spelling errors. Past Medical History Past Medical History: Hyperlipidemia, Hypertension History of Any Multi-Drug Resistant Organisms: None Reported Past Surgical History: No Surgical Hx Reported Additional Past Surgical History / Comment(s): gallstones removed, vasectomy Past Anesthesia/Blood Transfusion Reactions: No Reported Reaction Smoking Status: Former smoker Past Alcohol Use History: Daily Past Drug Use History: None Reported - Past Family History Mother Family Medical History: Cancer Brother(s) Family Medical History: Liver Disease Medications and Allergies Home Medications Medication Instructions Recorded Confirmed Type Atorvastatin Calcium [Lipitor] 20 mg PO HS 12/23/21 08/15/24 History Loratadine [Claritin] 10 mg PO DAILY 12/23/21 08/15/24 History lisinopriL 40 mg PO DAILY 12/23/21 08/15/24 History Apixaban [Eliquis] 5 mg PO BID 30 Days #60 tab 12/27/21 08/15/24 Rx Metoprolol Tartrate [Lopressor] 25 mg PO DAILY 08/15/24 08/15/24 History Allergies Allergy/AdvReac Type Severity Reaction Status Date / Time No Known Allergies Allergy Verified 08/15/24 14:22 Physical Exam Vitals: Vital Signs Temp Pulse Resp BP Pulse Ox 08/16/24 08:21 89 16 120/82 95 08/16/24 06:00 104 H 19 129/86 95 08/16/24 04:00 101 H 20 104/80 96 08/16/24 02:00 98 20 110/67 94 L 08/16/24 00:00 103 H 18 103/80 95 08/15/24 23:00 104 H 16 112/84 97 08/15/24 21:45 110 H 18 110/78 96 08/15/24 19:45 99.1 F 110 H 18 102/73 96 08/15/24 18:00 126 H 17 114/76 97 08/15/24 17:00 118 H 15 115/72 08/15/24 16:00 108 H 15 110/81 100 08/15/24 15:00 110 H 16 104/73 97 08/15/24 14:30 104 H 16 110/78 98 08/15/24 13:49 106 H 16 107/84 99 08/15/24 13:42 124 H 15 113/81 97 08/15/24 12:06 160 H 18 124/88 96 08/15/24 11:59 97.3 F L 108 H 18 121/82 99 Intake and Output 08/15/24 08/16/24 08/16/24 22:59 06:59 14:59 Output Total 890 Balance -890 Output: Urine 890 Uretheral (Jones) 890 Results CBC & Chem 7: 08/16/24 06:09 08/16/24 06:09 Labs: Abnormal Lab Results - Last 24 Hours (Table) 08/15/24 08/15/24 08/15/24 Range/Units 12:43 12:43 12:43 RBC (4.30-5.90) m/uL Hgb (13.0-17.5) gm/dL Hct (39.0-53.0) % MCV (80.0-100.0) fL Plt Count 117 L (150-450) k/uL Lymphocytes # 0.2 L (1.0-4.8) k/uL APTT 32.0 H (22.0-30.0) sec Sodium (137-145) mmol/L Chloride (98-107) mmol/L Carbon Dioxide (22-30) mmol/L BUN (9-20) mg/dL Glucose (74-99) mg/dL Plasma Lactic Acid Fredy 2.8 H* (0.7-2.0) mmol/L Calcium (8.4-10.2) mg/dL Total Bilirubin (0.2-1.3) mg/dL AST (17-59) U/L ALT (4-49) U/L Creatine Kinase (55-170) U/L Troponin I (0.000-0.034) ng/mL Total Protein (6.3-8.2) g/dL Albumin (3.5-5.0) g/dL Urine Protein (Negative) Urine Ketones (Negative) Urine Blood (Negative) Hyaline Casts (0-2) /lpf Urine Mucus (None) /hpf 08/15/24 08/15/24 08/15/24 Range/Units 12:43 13:12 16:31 RBC (4.30-5.90) m/uL Hgb (13.0-17.5) gm/dL Hct (39.0-53.0) % MCV (80.0-100.0) fL Plt Count (150-450) k/uL Lymphocytes # (1.0-4.8) k/uL APTT (22.0-30.0) sec Sodium 132 L (137-145) mmol/L Chloride (98-107) mmol/L Carbon Dioxide (22-30) mmol/L BUN 41 H (9-20) mg/dL Glucose 120 H (74-99) mg/dL Plasma Lactic Acid Fredy (0.7-2.0) mmol/L Calcium (8.4-10.2) mg/dL Total Bilirubin 2.1 H (0.2-1.3) mg/dL AST 273 H (17-59) U/L ALT 103 H (4-49) U/L Creatine Kinase 7299 H* (55-170) U/L Troponin I 0.054 H* (0.000-0.034) ng/mL Total Protein 5.5 L (6.3-8.2) g/dL Albumin 3.2 L (3.5-5.0) g/dL Urine Protein 1+ H (Negative) Urine Ketones 1+ H (Negative) Urine Blood Large H (Negative) Hyaline Casts 8 H (0-2) /lpf Urine Mucus Occasional H (None) /hpf 08/15/24 08/15/24 08/16/24 Range/Units 17:35 20:51 06:09 RBC 3.66 L (4.30-5.90) m/uL Hgb 12.3 L D (13.0-17.5) gm/dL Hct 36.9 L (39.0-53.0) % MCV 100.9 H (80.0-100.0) fL Plt Count 93 L (150-450) k/uL Lymphocytes # 0.4 L (1.0-4.8) k/uL APTT (22.0-30.0) sec Sodium (137-145) mmol/L Chloride (98-107) mmol/L Carbon Dioxide (22-30) mmol/L BUN (9-20) mg/dL Glucose (74-99) mg/dL Plasma Lactic Acid Fredy (0.7-2.0) mmol/L Calcium (8.4-10.2) mg/dL Total Bilirubin (0.2-1.3) mg/dL AST (17-59) U/L ALT (4-49) U/L Creatine Kinase (55-170) U/L Troponin I 0.056 H* 0.046 H* (0.000-0.034) ng/mL Total Protein (6.3-8.2) g/dL Albumin (3.5-5.0) g/dL Urine Protein (Negative) Urine Ketones (Negative) Urine Blood (Negative) Hyaline Casts (0-2) /lpf Urine Mucus (None) /hpf 08/16/24 08/16/24 Range/Units 06:09 06:09 RBC (4.30-5.90) m/uL Hgb (13.0-17.5) gm/dL Hct (39.0-53.0) % MCV (80.0-100.0) fL Plt Count (150-450) k/uL Lymphocytes # (1.0-4.8) k/uL APTT (22.0-30.0) sec Sodium 132 L (137-145) mmol/L Chloride 108 H (98-107) mmol/L Carbon Dioxide 20 L (22-30) mmol/L BUN 21 H (9-20) mg/dL Glucose 118 H (74-99) mg/dL Plasma Lactic Acid Fredy (0.7-2.0) mmol/L Calcium 8.2 L (8.4-10.2) mg/dL Total Bilirubin 1.5 H (0.2-1.3) mg/dL AST 178 H (17-59) U/L ALT 95 H (4-49) U/L Creatine Kinase 2245 H* (55-170) U/L Troponin I (0.000-0.034) ng/mL Total Protein 5.1 L (6.3-8.2) g/dL Albumin 2.8 L (3.5-5.0) g/dL Urine Protein (Negative) Urine Ketones (Negative) Urine Blood (Negative) Hyaline Casts (0-2) /lpf Urine Mucus (None) /hpf
[2024-08-16] MEDS: MORPHINE SULFATE 2 MG/ML SYRINGE IVP PRN (18:14)
[2024-08-16] MEDS: APIXABAN 5 MG TAB PO SCH (19:36)
[2024-08-17] MEDS: ALBUTEROL HFA INHALER INHALATION SCH (02:01)
[2024-08-17 07:35] LABS: Chloride 106 mmol/L (98-107)
[2024-08-17 07:38] LABS: African American GFR (CKD) >90 (>60 ml/min/1.73 sqM); Anion Gap 0 mmol/L; Blood Urea Nitrogen 10 mg/dL (9-20); Calcium 7.9 mg/dL (8.4-10.2); Carbon Dioxide 26 mmol/L (22-30); Creatine Kinase 910 U/L (55-170); Glucose 99 mg/dL (74-99); Magnesium 1.8 mg/dL (1.6-2.3); Non-African American GFR(CKD) >90 (>60 ml/min/1.73 sqM); Potassium 3.5 mmol/L (3.5-5.1); Sodium 132 mmol/L (137-145)
[2024-08-17] MEDS: ONDANSETRON 4 MG/2 ML VIAL IVP PRN (07:38)
[2024-08-17] MEDS: LORATADINE 10 MG TAB PO SCH (07:42)
--- NOTE | 2024-08-17 07:55 | CA ---
Transthoracic Echo Report Name: Larry Driver Age: 68 Gender: M : 1955 Exam Date: 08/16/2024 14:56 Exam Location: [facility] Ht (in): 68 Wt (lb): 186 Ordering Physician: Radha Vallejo Attending/Referring Phys: [id number], Yoni Credit Control Manager Alma Lopez RDCS Procedure CPT: Indications: elevated trops, s/p fall, afib rvr Cardiac Hx: A-FIB Technical Quality: Fair Contrast 1: Total Dose (mL): Contrast 2: Total Dose (mL): MEASUREMENTS (Male / Female) Normal Values 2D ECHO LV Diastolic Diameter PLAX 5.0 cm 4.2 - 5.9 / 3.9 - 5.3 cm LV Systolic Diameter PLAX 4.1 cm IVS Diastolic Thickness 1.0 cm 0.6 - 1.0 / 0.6 - 0.9 cm LVPW Diastolic Thickness 0.9 cm 0.6 - 1.0 / 0.6 - 0.9 cm LV Relative Wall Thickness 0.4 RV Internal Dim ED PLAX 2.3 cm Aortic Root Diameter 3.9 cm LA Systolic Diameter LX 5.2 cm 3.0 - 4.0 / 2.7 - 3.8 cm LV Diastolic Volume MOD BP 59.7 cm??? 67 - 155 / 56 - 104 cm??? LV Systolic Volume MOD BP 26.1 cm??? 22 - 58 / 19 - 49 cm??? LV Ejection Fraction MOD BP 56.3 % >= 55 % LV Cardiac Index MOD BP 2216.3 cm???/min???m??? LV Diastolic Volume MOD 4C 100.7 cm??? LV Systolic Volume MOD 4C 47.8 cm??? LV Ejection Fraction MOD 4C 52.5 % LV Cardiac Index MOD 4C 3489.5 cm???/min???m??? LV Diastolic Length 4C 7.3 cm LV Systolic Length 4C 6.9 cm LV Diastolic Volume MOD 2C 29.7 cm??? LV Systolic Volume MOD 2C 14.8 cm??? LV Ejection Fraction MOD 2C 50.2 % LV Cardiac Index MOD 2C 981.3 cm???/min???m??? LV Diastolic Length 2C 6.0 cm LV Systolic Length 2C 5.1 cm LA Volume 61.1 cm??? 18 - 58 / 22 - 52 cm??? LA Volume Index 30.1 cm???/m??? 16 - 28 cm???/m??? M-MODE Aortic Root Diameter MM 3.5 cm LA Systolic Diameter MM 4.5 cm LA Ao Ratio MM 1.3 AV Cusp Separation MM 1.9 cm DOPPLER AI Peak Velocity 170.9 cm/s AI Peak Gradient 11.7 mmHg AI Pressure Half Time 635.1 ms TR Peak Velocity 276.6 cm/s TR Peak Gradient 30.6 mmHg Right Ventricular Systolic Press 40.0 mmHg FINDINGS Left Ventricle Left ventricular ejection fraction is estimated at 45-50%. Mild left ventricular dilatation. Left ventricular wall thickness normal. Mildly reduced global left ventricular systolic function. Right Ventricle Moderate right ventricular dilatation. Mild pulmonary hypertension. Global hypokinesis Right Atrium Moderate right atrial dilatation. Left Atrium Severely increased left atrial diameter. Mildly increased left atrial volume. Mildly increased left atrial area. Mitral Valve Structurally normal mitral valve. [id number] mitral regurgitation. No mitral stenosis. Aortic Valve Trileaflet aortic valve. No aortic stenosis. Mild aortic regurgitation. Tricuspid Valve Structurally normal tricuspid valve. Mild tricuspid regurgitation. No tricuspid stenosis. Pulmonic Valve Structurally normal pulmonic valve. No pulmonic stenosis. Trace pulmonic regurgitation. Pericardium No pericardial or pleural effusion. Aorta Normal size aortic root and proximal ascending aorta. CONCLUSIONS 1. Mild global hypokinesis of the left ventricle 2. Dilated right ventricle with mild pulmonary hypertension 3. Mild to moderate mitral with mild tricuspid and aortic regurgitation Previewed by: Dr. Janelle Paula MD (Electronically Signed) Final Date: 17 August 2024 07:54
--- NOTE | 2024-08-17 09:24 | P.PN ---
Subjective Patient is seen in follow-up for rhabdomyolysis. CK levels trending down. Renal function stable. Receiving IV fluids. Poor historian. Daughter present at bedside. Vital signs are stable. General: No acute distress. HEENT: Head exam is unremarkable. LUNGS: No audible rhonchi or wheezes. HEART: Rate and Rhythm are regular. ABDOMEN: No distention. EXTREMITITES: No edema. Objective - Vital Signs Vital signs: Vital Signs Temp 98.2 F 08/17/24 03:18 Pulse 83 08/17/24 03:18 Resp 16 08/17/24 03:18 BP 131/82 08/17/24 03:18 Pulse Ox 95 08/17/24 03:18 FiO2 Intake & Output 08/16/24 08/17/24 08/17/24 18:59 06:59 18:59 Intake Total 534.25 420 Output Total 200 400 225 Balance 334.25 -400 195 Weight 84.368 kg Intake: Intake, IV Titration 114.25 Amount Diltiazem 125 mg In 114.25 Sodium Chloride 0.9% 100 ml @ 5 MG/HR 5 mls/hr IV .Q24H [facility] Rx#:[id number] Oral 420 420 Output: Urine 200 400 225 Other: Voiding Method Indwelling Catheter Indwelling Catheter - Labs CBC & Chem 7: 08/16/24 06:09 08/17/24 06:45 Labs: Abnormal Lab Results - Last 24 Hours (Table) 08/17/24 Range/Units 06:45 Sodium 132 L (137-145) mmol/L Creatinine 0.57 L (0.66-1.25) mg/dL Calcium 7.9 L (8.4-10.2) mg/dL Creatine Kinase 910 H (55-170) U/L Assessment and Plan Plan: Assessment: 1. Rhabdomyolysis secondary to immobility. CK levels trending down. UA with large blood and no RBCs suggestive of myoglobinuria. 2. Nongap metabolic acidosis secondary to IV fluids. Improved. 3. A-fib with RVR status post Cardizem drip. On Lopressor and anticoagulation. 4. Hyponatremia secondary to hypotonic fluid infusion. Stable. 5. Chronic systolic CHF ejection fraction of 45 to 50% with mild pulmonary hypertension, mild to moderate mitral and mild tricuspid and aortic regurgitation. Plan: Maintain IV fluids for another day. Decrease rate to 60 cc an hour. Encouraged oral intake. Continue to monitor renal function and urine output.
--- NOTE | 2024-08-17 11:01 | P.PN ---
Subjective HISTORY OF PRESENT ILLNESS: This is a 68-year-old male with a past medical history significant for atrial fibrillation, hyperlipidemia, hypertension, former nicotine dependence, alcohol abuse. Patient does not follow with a healthcare representative. We have been asked to see the patient in consultation for A-fib with RVR. Patient examined at the bedside in the emergency room. Apparently, the patient tripped and fell about 3 days ago. He was unable to get up and laid on the floor for 3 days. He was found by his daughter. Patient does not believe that he lost consciousness. Patient was found to have rhabdomyolysis. Patient additionally was found to be in A-fib with RVR. He is currently on Cardizem drip at 5 mg an hour. Bedside telemetry reveals atrial fibrillation with a heart rate in the 90s. Patient is a former cigarette smoker. Does report daily alcohol use. He states that he drinks at least a sixpack a day. DIAGNOSTICS: - EKG reveals A-fib with RVR - Chest xray negative for acute process - Laboratory data: WBC 3.9. Hemoglobin 12.3. Platelet count 93. Sodium 132. Potassium 3.6. BUN 21. Creatinine 0.67. Magnesium 2.0. Creatinine kinase 7299. Repeat 2245. Troponin 0.054. 0.056. 0.046. - Current home cardiac medications include Eliquis 5 mg twice a day, Lipitor 20 mg at night, metoprolol tartrate 25 mg daily, lisinopril 40 mg daily - Most recent echocardiogram obtained in December 2021 revealed ejection fraction 60 to 65%, mild aortic regurgitation, mild aortic stenosis, mild tricuspid regurgitation - Cardiac catheterization history: Unknown 08/17/2024 Patient examined this morning at the bedside. Patient is feeling member is present. Patient currently denies chest pain or pressure. He denies shortness of breath. He remains in atrial fibrillation with heart rate in the 80s. Echocardiogram completed revealing ejection fraction 45 to 50% with mild to moderate MR. PHYSICAL EXAM: VITAL SIGNS: Reviewed. GENERAL: Well-developed in no acute distress. HEENT: Head is normocephalic. Pupils are equal, round. Sclerae anicteric. Mucous membranes of the mouth are moist. Neck supple. No JVD or thyromegaly LUNGS: Respirations even and unlabored. Lungs essentially clear to auscultation bilaterally. HEART: Irregular rate and rhythm. S1 and S2 heard. ABDOMEN: Soft. Nondistended. Nontender. EXTREMITIES: Normal range of motion. No clubbing or cyanosis. Peripheral pulses intact. No lower extremity edema. Patient with bruises and erythema to right side of body. NEUROLOGIC: Awake and alert. Oriented x 3. ASSESSMENT: Atrial fibrillation with RVR, likely persistent Rhabdomyolysis Elevated troponins, flat, type II [place], no evidence of acute coronary syndrome New onset mild cardiomyopathy EF 45-50, suspect nonischemic Hypertension Hyperlipidemia Former nicotine dependence Alcohol abuse, patient drinks at least 6 beers daily Frequent falls per patient PLAN: 2D echo obtained and reviewed Continue current dose of metoprolol 25 mg twice a day Continue telemetry monitoring Abstinence from alcohol recommended Patient does report having frequent falls at home and drinks alcohol daily. Consider risk versus benefit of continuing anticoagulation post discharge. Further recommendations pending patient course Nurse practitioner note has been reviewed by physician. Signing provider agrees with the documented findings, assessment, and plan of care documented by BATTERY PLATE REMOVER as a scribe. Objective - Vital Signs Vital signs: Vital Signs Temp 99 F 08/17/24 08:00 Pulse 89 08/17/24 08:00 Resp 18 08/17/24 08:00 BP 115/79 08/17/24 08:00 Pulse Ox 95 08/17/24 09:29 FiO2 Intake & Output 08/16/24 08/17/24 08/17/24 18:59 06:59 18:59 Intake Total 534.25 420 Output Total 200 400 225 Balance 334.25 -400 195 Weight 84.368 kg Intake: Intake, IV Titration 114.25 Amount Diltiazem 125 mg In 114.25 Sodium Chloride 0.9% 100 ml @ 5 MG/HR 5 mls/hr IV .Q24H [facility] Rx#:[id number] Oral 420 420 Output: Urine 200 400 225 Other: Voiding Method Indwelling Catheter Indwelling Catheter Indwelling Catheter - Labs CBC & Chem 7: 08/16/24 06:09 08/17/24 06:45 Labs: Abnormal Lab Results - Last 24 Hours (Table) 08/17/24 Range/Units 06:45 Sodium 132 L (137-145) mmol/L Creatinine 0.57 L (0.66-1.25) mg/dL Calcium 7.9 L (8.4-10.2) mg/dL Creatine Kinase 910 H (55-170) U/L
--- NOTE | 2024-08-17 12:50 | P.PN ---
Subjective Progress Note Date: 08/17/24 patient is 68-year-old gentleman with past medical history significant for hypertension, hyperlipidemia, COPD, BPH, A-fib presented the ER because of fall. Patient is not a good historian most of the history has been obtained from the EMR. Patient was apparently found laying on the floor by his daughter. Patient was last seen in normal health by his daughter 3 days ago. Patient has not been eating and drinking for 3 days. There was no obvious trauma. There was no mention of any loss of consciousness. There was no witness to the extremity. There is no complaint of fever or chills. There is no complaint of nausea, vomiting abdominal pain. Because of the fall, patient brought to the ER Initial lab work done in the ER showed WBC 9.4, hemoglobin 15.6, platelet count 117, sodium 132, potassium 4.5, BUN 41, creatinine 0.92, glucose 120, bilirubin 2.1, AST 273, ALT 103, CK7 299, troponin 0.054 UA showing large amount of urine blood, urine RBC 1 serum alcohol level less than 10 EKG done in the ER showed heart rate of 143, irregular rhythm, no ST segment elevation or depression seen, no T-wave inversions seen. Chest x-ray done in the ER showed no acute cardiopulmonary process X-ray foot done showed no evidence of acute fracture CT head done showed no acute intracranial process, did show hypodensity in the cortex of the posterior left frontal lobe suggestive of mineralization or prior hemorrhage. CT cervical spine done showed no evidence of cervical spine fracture, did show large osteophyte anterior to the spine on the anterior longitudinal ligament extending from C2-C7 X-ray pelvis done showed no acute osseous pathology Patient admitted to internal medicine service 08/17. Patient seen and examined. Blood work done this morning showed sodium 132, potassium 3.5, BUN 10, creatinine 0.57, CPK 910. Discussed with patient's daughter, patient is very confused, hallucinating talking about his parents. REVIEW OF SYSTEMS: Review of system cannot be obtained as patient is confused PHYSICAL EXAMINATION: GENERAL: The patient is confused, not in any acute distress. Well developed, well nourished. HEENT: Pupils are round and equally reacting to light. EOMI. No scleral icterus. No conjunctival pallor. Normocephalic, atraumatic. No pharyngeal erythema. No thyromegaly. CARDIOVASCULAR: S1 and S2 present. No murmurs, rubs, or gallops. PULMONARY: Chest is clear to auscultation, no wheezing or crackles. ABDOMEN: Soft, nontender, nondistended, normoactive bowel sounds. No palpable organomegaly. MUSCULOSKELETAL: No joint swelling or deformity. EXTREMITIES: No cyanosis, clubbing, or pedal edema. NEUROLOGICAL: Gross neurological examination did not reveal any focal deficits. SKIN: No rashes. Assessment and plan Fall Rhabdomyolysis Acute transaminitis A-fib with RVR Nonanion gap metabolic acidosis Hyponatremia Monitor vital signs Monitor CBC Monitor CMP Continue telemetry monitoring Avoid nephrotoxic agent Avoid hypotension Continue IV fluids Oral hydration Continue Eliquis, Lopressor Continue CIWA protocol Cardiology following Nephrology following PT OT consulted Labs and medication were reviewed.. Continue same treatment. Continue with symptomatic treatment. Resume home medication. Monitor labs and vitals. DVT and GI prophylaxis. Further recommendations as per clinical course of the patient Dictation was produced using [employer] dictation software. please excuse any grammatical, word or spelling errors. Objective - Vital Signs Vital signs: Vital Signs Temp 99 F 08/17/24 08:00 Pulse 89 08/17/24 08:00 Resp 18 08/17/24 08:00 BP 115/79 08/17/24 08:00 Pulse Ox 95 08/17/24 09:29 FiO2 Intake & Output 08/16/24 08/17/24 08/17/24 18:59 06:59 18:59 Intake Total 534.25 420 Output Total 200 400 225 Balance 334.25 -400 195 Weight 84.368 kg Intake: Intake, IV Titration 114.25 Amount Diltiazem 125 mg In 114.25 Sodium Chloride 0.9% 100 ml @ 5 MG/HR 5 mls/hr IV .Q24H [facility] Rx#:[id number] Oral 420 420 Output: Urine 200 400 225 Other: Voiding Method Indwelling Catheter Indwelling Catheter Indwelling Catheter - Labs CBC & Chem 7: 08/16/24 06:09 08/17/24 06:45 Labs: Abnormal Lab Results - Last 24 Hours (Table) 08/17/24 Range/Units 06:45 Sodium 132 L (137-145) mmol/L Creatinine 0.57 L (0.66-1.25) mg/dL Calcium 7.9 L (8.4-10.2) mg/dL Creatine Kinase 910 H (55-170) U/L
[2024-08-17] MEDS: DOCUSATE 100 MG CAP PO SCH (20:25)
[2024-08-18] MEDS ORDERED: ZINC OXIDE PASTE (Z-GUARD) 1 APPLIC TOPICAL PRN (03:14)
[2024-08-18 06:25] LABS: Basophils % (A) 0 %; Eosinophils % (A) 1 %; HCT 39.4 % (39.0-53.0); HGB 13.1 gm/dL (13.0-17.5); Lymphocytes # (A) 0.6 k/uL (1.0-4.8); Lymphocytes % (A) 18 %; MCH 33.8 pg (25.0-35.0); MCHC 33.3 g/dL (31.0-37.0); MCV 101.6 fL (80.0-100.0); Mean Platelet Volume 7.4; Monocytes # (A) 0.3 k/uL (0-1.0); Monocytes % (A) 10 %; Neutrophils # (A) 2.4 k/uL (1.3-7.7); Neutrophils % (A) 68 %; Platelet Count 101 k/uL (150-450); RBC 3.88 m/uL (4.30-5.90); RDW 11.8 % (11.5-15.5); WBC 3.4 k/uL (3.8-10.6)
[2024-08-18 06:40] LABS: ALT 82 U/L (4-49); AST 97 U/L (17-59); African American GFR (CKD) >90 (>60 ml/min/1.73 sqM); Albumin 2.3 g/dL (3.5-5.0); Alkaline Phosphatase 54 U/L (38-126); Anion Gap -3 mmol/L; Blood Urea Nitrogen 6 mg/dL (9-20); Calcium 7.9 mg/dL (8.4-10.2); Carbon Dioxide 29 mmol/L (22-30); Chloride 107 mmol/L (98-107); Creatine Kinase 422 U/L (55-170); Glucose 91 mg/dL (74-99); Magnesium 1.8 mg/dL (1.6-2.3); Non-African American GFR(CKD) >90 (>60 ml/min/1.73 sqM); Potassium 3.6 mmol/L (3.5-5.1); Sodium 133 mmol/L (137-145); Total Bilirubin 1.2 mg/dL (0.2-1.3); Total Protein 4.6 g/dL (6.3-8.2)
[2024-08-18] MEDS: polyethylene glycoL 3350 17 GM POWD.PACK PO SCH (08:21)
--- NOTE | 2024-08-18 10:05 | P.PN ---
Subjective Progress Note Date: 08/18/24 HISTORY OF PRESENT ILLNESS: This is a 68-year-old male with a past medical history significant for atrial fibrillation, hyperlipidemia, hypertension, former nicotine dependence, alcohol abuse. Patient does not follow with a corpsman. We have been asked to see the patient in consultation for A-fib with RVR. Patient examined at the bedside in the emergency room. Apparently, the patient tripped and fell about 3 days ago. He was unable to get up and laid on the floor for 3 days. He was found by his daughter. Patient does not believe that he lost consciousness. Patient was found to have rhabdomyolysis. Patient additionally was found to be in A-fib with RVR. He is currently on Cardizem drip at 5 mg an hour. Bedside telemetry reveals atrial fibrillation with a heart rate in the 90s. Patient is a former cigarette smoker. Does report daily alcohol use. He states that he drinks at least a sixpack a day. DIAGNOSTICS: - EKG reveals A-fib with RVR - Chest xray negative for acute process - Laboratory data: WBC 3.9. Hemoglobin 12.3. Platelet count 93. Sodium 132. Potassium 3.6. BUN 21. Creatinine 0.67. Magnesium 2.0. Creatinine kinase 7299. Repeat 2245. Troponin 0.054. 0.056. 0.046. - Current home cardiac medications include Eliquis 5 mg twice a day, Lipitor 20 mg at night, metoprolol tartrate 25 mg daily, lisinopril 40 mg daily - Most recent echocardiogram obtained in December 2021 revealed ejection fraction 60 to 65%, mild aortic regurgitation, mild aortic stenosis, mild tricuspid regurgitation - Cardiac catheterization history: Unknown 08/17/2024 Patient examined this morning at the bedside. Patient is feeling member is present. Patient currently denies chest pain or pressure. He denies shortness of breath. He remains in atrial fibrillation with heart rate in the 80s. Echocardiogram completed revealing ejection fraction 45 to 50% with mild to moderate MR. 08/18/24 Patient is seen and examined. He is sleeping soundly. He has been maintained on Eliquis 5 mg twice daily as well as Lopressor 25 mg twice daily. Patient remains in atrial fibrillation with rate control in the 80s and 90s, blood pressure 105/71, pulse ox 97% on room air. Repeat blood work reveals WBC 3.4, hemoglobin 13.1, creatinine 0.58, potassium 3.6. Liver enzymes are improved w ith AST of 97 and ALT 82. CK is down to 422.. PHYSICAL EXAM: VITAL SIGNS: Reviewed. GENERAL: Well-developed in no acute distress. HEENT: Head is normocephalic. Pupils are equal, round. Sclerae anicteric. Mucous membranes of the mouth are moist. Neck supple. No JVD or thyromegaly LUNGS: Respirations even and unlabored. Lungs essentially clear to auscultation bilaterally. HEART: Irregular rate and rhythm. S1 and S2 heard. ABDOMEN: Soft. Nondistended. Nontender. EXTREMITIES: Normal range of motion. No clubbing or cyanosis. Peripheral pulses intact. No lower extremity edema. Patient with bruises and erythema to right side of body. ASSESSMENT: Atrial fibrillation with RVR, likely persistent, currently rate controlled Rhabdomyolysis, improving Elevated troponins, flat, type II [place], no evidence of acute coronary syndrome New onset mild cardiomyopathy EF 45-50, suspect nonischemic Hypertension Hyperlipidemia Former nicotine dependence Alcohol abuse, patient drinks at least 6 beers daily Frequent falls per patient PLAN: Continue Eliquis 5 mg twice daily and metoprolol 25 mg twice a day Abstinence from alcohol recommended Patient does report having frequent falls at home and drinks alcohol daily. Consider risk versus benefit of continuing anticoagulation post discharge. At the time of discharge, patient will follow-up with Dr. Paula. Patient is cleared for discharge from cardiology. Nurse practitioner note has been reviewed by physician. Signing provider agrees with the documented findings, assessment, and plan of care documented by VOICE NETWORK ADMINISTRATOR as a scribe. Objective - Vital Signs Vital signs: Vital Signs Temp 98.3 F 08/18/24 04:00 Pulse 83 08/18/24 04:00 Resp 16 08/18/24 04:00 BP 107/69 08/18/24 04:00 Pulse Ox 94 L 08/18/24 04:00 FiO2 Intake & Output 08/17/24 08/18/24 08/18/24 18:59 06:59 18:59 Intake Total 900 Output Total 775 450 Balance 125 -450 Intake: Oral 900 Output: Urine 775 450 Other: Voiding Method Indwelling Catheter Indwelling Catheter - Labs CBC & Chem 7: 08/18/24 05:21 08/18/24 05:21 Labs: Abnormal Lab Results - Last 24 Hours (Table) 08/18/24 08/18/24 Range/Units 05:21 05:21 WBC 3.4 L (3.8-10.6) k/uL RBC 3.88 L (4.30-5.90) m/uL MCV 101.6 H (80.0-100.0) fL Plt Count 101 L (150-450) k/uL Lymphocytes # 0.6 L (1.0-4.8) k/uL Sodium 133 L (137-145) mmol/L BUN 6 L (9-20) mg/dL Creatinine 0.58 L (0.66-1.25) mg/dL Calcium 7.9 L (8.4-10.2) mg/dL AST 97 H (17-59) U/L ALT 82 H (4-49) U/L Creatine Kinase 422 H (55-170) U/L Total Protein 4.6 L (6.3-8.2) g/dL Albumin 2.3 L (3.5-5.0) g/dL
--- NOTE | 2024-08-18 10:06 | P.PN ---
Subjective Patient is seen in follow-up for rhabdomyolysis. CK levels trending down. Renal function stable. Receiving IV fluids. Poor historian. Daughter present at bedside. Oral intake poor. Vital signs are stable. General: No acute distress. HEENT: Head exam is unremarkable. LUNGS: No audible rhonchi or wheezes. HEART: Rate and Rhythm are regular. ABDOMEN: No distention. EXTREMITITES: No edema. Objective - Vital Signs Vital signs: Vital Signs Temp 97.4 F L 08/18/24 08:18 Pulse 95 08/18/24 08:18 Resp 17 08/18/24 08:18 BP 105/71 08/18/24 08:18 Pulse Ox 97 08/18/24 08:18 FiO2 Intake & Output 08/17/24 08/18/24 08/18/24 18:59 06:59 18:59 Intake Total 900 120 Output Total 775 450 Balance 125 -450 120 Intake: Oral 900 120 Output: Urine 775 450 Other: Voiding Method Indwelling Catheter Indwelling Catheter Indwelling Catheter # Voids 0 # Bowel Movements 0 - Labs CBC & Chem 7: 08/18/24 05:21 08/18/24 05:21 Labs: Abnormal Lab Results - Last 24 Hours (Table) 08/18/24 08/18/24 Range/Units 05:21 05:21 WBC 3.4 L (3.8-10.6) k/uL RBC 3.88 L (4.30-5.90) m/uL MCV 101.6 H (80.0-100.0) fL Plt Count 101 L (150-450) k/uL Lymphocytes # 0.6 L (1.0-4.8) k/uL Sodium 133 L (137-145) mmol/L BUN 6 L (9-20) mg/dL Creatinine 0.58 L (0.66-1.25) mg/dL Calcium 7.9 L (8.4-10.2) mg/dL AST 97 H (17-59) U/L ALT 82 H (4-49) U/L Creatine Kinase 422 H (55-170) U/L Total Protein 4.6 L (6.3-8.2) g/dL Albumin 2.3 L (3.5-5.0) g/dL Assessment and Plan Plan: Assessment: 1. Rhabdomyolysis secondary to immobility. CK levels trending down. UA with large blood and no RBCs suggestive of myoglobinuria. 2. Nongap metabolic acidosis secondary to IV fluids. Improved. 3. A-fib with RVR status post Cardizem drip. On Lopressor and anticoagulation. 4. Hyponatremia secondary to hypotonic fluid infusion. Improved. 5. Chronic systolic CHF ejection fraction of 45 to 50% with mild pulmonary hypertension, mild to moderate mitral and mild tricuspid and aortic regurgitation. Plan: Maintain gentle IV hydration. Encouraged oral intake. Continue to monitor renal function and urine output. Replace potassium.
[2024-08-18] MEDS: POTASSIUM CHLORIDE ER 20 MEQ TAB.ER PO STA (10:52)
--- NOTE | 2024-08-18 15:59 | XR ---
EXAMINATION TYPE: XR chest 1V portable DATE OF EXAM: 08/18/2024 COMPARISON: 08/15/2024 CLINICAL INDICATION: Male, 68 years old with history of r/o aspiration; TECHNIQUE: Single frontal view of the chest is obtained. FINDINGS: There is a focal opacity obscuring the left lung base and costophrenic angle likely combination of sm all pleural effusion and atelectasis/pneumonia. The right lung is clear. The heart and pulmonary vasculature are normal. The osseous structures are intact. IMPRESSION: Acute cardiopulmonary disease involving the left lung base as described above. [facility], Workstation: ROSE MARY, 08/18/2024 3:57 PM
[2024-08-19 05:47] LABS: Basophils % (A) 0 %; Eosinophils # (A) 0.1 k/uL (0-0.7); Eosinophils % (A) 2 %; HCT 38.8 % (39.0-53.0); Lymphocytes # (A) 0.5 k/uL (1.0-4.8); Lymphocytes % (A) 12 %; MCH 33.6 pg (25.0-35.0); MCHC 33.5 g/dL (31.0-37.0); MCV 100.3 fL (80.0-100.0); Mean Platelet Volume 7.5; Monocytes # (A) 0.3 k/uL (0-1.0); Monocytes % (A) 8 %; Neutrophils # (A) 3.3 k/uL (1.3-7.7); Neutrophils % (A) 77 %; Platelet Count 120 k/uL (150-450); RBC 3.87 m/uL (4.30-5.90); RDW 11.9 % (11.5-15.5); WBC 4.3 k/uL (3.8-10.6)
[2024-08-19 05:49] LABS: ALT 67 U/L (4-49); AST 64 U/L (17-59); African American GFR (CKD) >90 (>60 ml/min/1.73 sqM); Albumin 2.3 g/dL (3.5-5.0); Alkaline Phosphatase 49 U/L (38-126); Anion Gap -1 mmol/L; Blood Urea Nitrogen 5 mg/dL (9-20); Carbon Dioxide 27 mmol/L (22-30); Chloride 107 mmol/L (98-107); Glucose 105 mg/dL (74-99); Non-African American GFR(CKD) >90 (>60 ml/min/1.73 sqM); Potassium 3.6 mmol/L (3.5-5.1); Sodium 133 mmol/L (137-145); Total Bilirubin 1.2 mg/dL (0.2-1.3); Total Protein 4.5 g/dL (6.3-8.2)
--- NOTE | 2024-08-19 09:56 | P.PN ---
Subjective Progress Note Date: 08/19/24 HISTORY OF PRESENT ILLNESS: This is a 68-year-old male with a past medical history significant for atrial fibrillation, hyperlipidemia, hypertension, former nicotine dependence, alcohol abuse. Patient does not follow with a director of automation. We have been asked to see the patient in consultation for A-fib with RVR. Patient examined at the bedside in the emergency room. Apparently, the patient tripped and fell about 3 days ago. He was unable to get up and laid on the floor for 3 days. He was found by his daughter. Patient does not believe that he lost consciousness. Patient was found to have rhabdomyolysis. Patient additionally was found to be in A-fib with RVR. He is currently on Cardizem drip at 5 mg an hour. Bedside telemetry reveals atrial fibrillation with a heart rate in the 90s. Patient is a former cigarette smoker. Does report daily alcohol use. He states that he drinks at least a sixpack a day. DIAGNOSTICS: - EKG reveals A-fib with RVR - Chest xray negative for acute process - Laboratory data: WBC 3.9. Hemoglobin 12.3. Platelet count 93. Sodium 132. Potassium 3.6. BUN 21. Creatinine 0.67. Magnesium 2.0. Creatinine kinase 7299. Repeat 2245. Troponin 0.054. 0.056. 0.046. - Current home cardiac medications include Eliquis 5 mg twice a day, Lipitor 20 mg at night, metoprolol tartrate 25 mg daily, lisinopril 40 mg daily - Most recent echocardiogram obtained in December 2021 revealed ejection fraction 60 to 65%, mild aortic regurgitation, mild aortic stenosis, mild tricuspid regurgitation - Cardiac catheterization history: Unknown 08/17/2024 Patient examined this morning at the bedside. Patient is feeling member is present. Patient currently denies chest pain or pressure. He denies shortness of breath. He remains in atrial fibrillation with heart rate in the 80s. Echocardiogram completed revealing ejection fraction 45 to 50% with mild to moderate MR. 08/18/24 Patient is seen and examined. He is sleeping soundly. He has been maintained on Eliquis 5 mg twice daily as well as Lopressor 25 mg twice daily. Patient remains in atrial fibrillation with rate control in the 80s and 90s, blood pressure 105/71, pulse ox 97% on room air. Repeat blood work reveals WBC 3.4, hemoglobin 13.1, creatinine 0.58, potassium 3.6. Liver enzymes are improved w ith AST of 97 and ALT 82. CK is down to 422.. 08/19/24 Patient is seen and examined. He remains in atrial fibrillation with controlled rhythm. Family member is at bedside and discussed use of Eliquis. Patient apparently has frequent falls at home and recommendations will be to discontinue Eliquis at discharge. Heart rate is in the 70s to 90s, blood pressure 118/76, pulse ox 97% on room air. Repeat blood work reveals hemoglobin of 13, creatinine 0.54. AST 64 and ALT 67. Chest x-ray reveals left lung base opacity. [facility] PHYSICAL EXAM: VITAL SIGNS: Reviewed. GENERAL: Well-developed in no acute distress. HEENT: Head is normocephalic. Pupils are equal, round. Sclerae anicteric. Mucous membranes of the mouth are moist. Neck supple. No JVD or thyromegaly LUNGS: Respirations even and unlabored. Lungs essentially clear to auscultation bilaterally. HEART: Irregular rate and rhythm. S1 and S2 heard. ABDOMEN: Soft. Nondistended. Nontender. EXTREMITIES: No clubbing or cyanosis. Peripheral pulses intact. No lower extremity edema. Patient with bruises and erythema to right side of body. ASSESSMENT: Atrial fibrillation with RVR, likely persistent, currently rate controlled Rhabdomyolysis, improving Elevated troponins, flat, type II SC, no evidence of acute coronary syndrome New onset mild cardiomyopathy EF 45-50, suspect nonischemic Hypertension Hyperlipidemia Former nicotine dependence Alcohol abuse, patient drinks at least 6 beers daily Frequent falls per patient PLAN: Continue Eliquis 5 mg twice daily and metoprolol 25 mg twice a day Abstinence from alcohol recommended Patient does report having frequent falls at home and drinks alcohol daily. Family member is at the bedside and confirms this. Eliquis will be discontinued. At the time of discharge, patient will follow-up with Dr. Paula. Patient is cleared for discharge from cardiology. Nurse practitioner note has been reviewed by physician. Signing provider agrees with the documented findings, assessment, and plan of care documented by PRODUCTION STATISTICAL CLERK as a scribe. Objective - Vital Signs Vital signs: Vital Signs Temp 99.1 F 08/19/24 04:00 Pulse 87 08/19/24 04:00 Resp 17 08/19/24 04:00 BP 117/79 08/19/24 04:00 Pulse Ox 96 08/19/24 04:00 FiO2 Intake & Output 08/18/24 08/19/24 08/19/24 18:59 06:59 18:59 Intake Total 120 Output Total 900 620 Balance -780 -620 Weight 95 kg Intake: Oral 120 Output: Urine 900 620 Other: Voiding Method Indwelling Catheter Indwelling Catheter # Voids 0 # Bowel Movements 0 - Labs CBC & Chem 7: 08/19/24 05:25 08/19/24 05:25 Labs: Abnormal Lab Results - Last 24 Hours (Table) 08/19/24 08/19/24 Range/Units 05:25 05:25 RBC 3.87 L (4.30-5.90) m/uL Hct 38.8 L (39.0-53.0) % MCV 100.3 H (80.0-100.0) fL Plt Count 120 L (150-450) k/uL Lymphocytes # 0.5 L (1.0-4.8) k/uL Sodium 133 L (137-145) mmol/L BUN 5 L (9-20) mg/dL Creatinine 0.54 L (0.66-1.25) mg/dL Glucose 105 H (74-99) mg/dL Calcium 8.0 L (8.4-10.2) mg/dL AST 64 H (17-59) U/L ALT 67 H (4-49) U/L Total Protein 4.5 L (6.3-8.2) g/dL Albumin 2.3 L (3.5-5.0) g/dL
--- NOTE | 2024-08-19 10:07 | P.PN ---
Subjective Patient is seen in follow-up for rhabdomyolysis. CK levels trending down. Renal function stable. Receiving IV fluids. Poor historian. No active complaints. Vital signs are stable. General: No acute distress. HEENT: Head exam is unremarkable. LUNGS: No audible rhonchi or wheezes. HEART: Rate and Rhythm are regular. ABDOMEN: No distention. EXTREMITITES: No edema. Objective - Vital Signs Vital signs: Vital Signs Temp 98.2 F 08/19/24 08:35 Pulse 94 08/19/24 08:35 Resp 17 08/19/24 08:35 BP 118/76 08/19/24 08:35 Pulse Ox 97 08/19/24 08:35 FiO2 Intake & Output 08/18/24 08/19/24 08/19/24 18:59 06:59 18:59 Intake Total 120 Output Total 900 620 Balance -780 -620 Weight 95 kg Intake: Oral 120 Output: Urine 900 620 Other: Voiding Method Indwelling Catheter Indwelling Catheter # Voids 0 # Bowel Movements 0 - Labs CBC & Chem 7: 08/19/24 05:25 08/19/24 05:25 Labs: Abnormal Lab Results - Last 24 Hours (Table) 08/19/24 08/19/24 Range/Units 05:25 05:25 RBC 3.87 L (4.30-5.90) m/uL Hct 38.8 L (39.0-53.0) % MCV 100.3 H (80.0-100.0) fL Plt Count 120 L (150-450) k/uL Lymphocytes # 0.5 L (1.0-4.8) k/uL Sodium 133 L (137-145) mmol/L BUN 5 L (9-20) mg/dL Creatinine 0.54 L (0.66-1.25) mg/dL Glucose 105 H (74-99) mg/dL Calcium 8.0 L (8.4-10.2) mg/dL AST 64 H (17-59) U/L ALT 67 H (4-49) U/L Total Protein 4.5 L (6.3-8.2) g/dL Albumin 2.3 L (3.5-5.0) g/dL Assessment and Plan Plan: Assessment: 1. Rhabdomyolysis secondary to immobility. CK levels trending down. UA with large blood and no RBCs suggestive of myoglobinuria. 2. [place] metabolic acidosis secondary to IV fluids. Improved. 3. A-fib with RVR status post Cardizem drip. On Lopressor and anticoagulation. 4. Hyponatremia secondary to hypotonic fluid infusion. Improved. 5. Chronic systolic CHF ejection fraction of 45 to 50% with mild pulmonary hypertension, mild to moderate mitral and mild tricuspid and aortic regurgitation. Plan: Hep-Lock IV fluids. Encouraged oral intake. Continue to monitor renal function and urine output. Replace potassium.
--- NOTE | 2024-08-19 10:17 | CDI ---
Documentation Clarification Form Date: 08/19/2024 10:02:19 AM From: Bambi Clifford RN CCDS Phone: [phone] Admit Date: 08/15/2024 02:45:00 PM Patient Name: Larry Driver Visit Number: [id number] Discharge Date: ATTENTION: The Clinical Documentation Specialists (CDI) and [facility] Coding Staff appreciate your assistance in clarifying documentation. Please respond to the clarification below the line at the bottom and electronically sign. The CDI & [facility] Coding staff will review the response and follow-up if needed. Please note: Queries are made part of the Legal Health Record. If you have any questions, please contact the author of this message via ITS. Provider: Amrita Chandra NP Rhabdomyolysis secondary to immobility is documented 08/18, Nephrology note.. Additional clarification regarding the type of rhabdomyolysis is requested. History/Risk Factors: 68 year old M presented to the ED after a fall and found by daughter laying on the floor by his daughter and was last seen three days prior. The patient had nothing to eat or drink. Medical History: HLD, HTN and Alcohol use daily. 08/16, Clinical Indicators: VSS: B/P 121/82; HR 108; SpO2 97.3 F Oral; RR 18; SpO2 99% room air LABS: Creatinine kinase 08/15: 7299; 08/16: 2245; 08/17: 910 Treatment:08/15 0.9NS 2.5L IVFL x 1; 08/15 0.9NS 130cc/hr IV x 8 hours; 08/15 1130 Dextrose 5% 1/2ns 80cc/hr; 08/16 08/18 0.9NS 60cc/hr IV Please clarify the type of rhabdomyolysis, if known: [ x ] Traumatic rhabdomyolysis due to prolonged immobility [ ] Other, please specify [ ] Unable to Determine (Template Last Revised: November 2020) MTDD
[2024-08-19] MEDS: POTASSIUM CHLORIDE ER 20 MEQ TAB.ER PO STA (10:26)
[2024-08-19] MEDS: FAMOTIDINE 20 MG TAB PO SCH (10:26)
[2024-08-19] MEDS: KETOROLAC 15 MG/ML 1 ML VIAL IVP SCH (13:37)
--- NOTE | 2024-08-19 17:09 | P.CN ---
Psychiatric Consult - . Consult date: 08/19/24 Consult:: 08/19/24 16:47 IDENTIFYING DATA: This patient is a 68-year-old male, currently living alone REASON FOR REFERRAL: Psychiatry was consulted for depression, alcohol, add meds for depression HISTORY OF PRESENT ILLNESS: The patient presented to the hospital for a fall. Patient reportedly was laying down on the ground for 3 days and CK was elevated. Patient seen and evaluated in his room with family at bedside. Patient appears to be guarded with several responses. He states he does not feel depressed he denied any depressive symptoms over the last few weeks. Family at bedside states that patient lives alone and upon arrival was not as communicative but has gotten better over the last several days. Family largely expressed concerns with patient's alcohol use. Patient states he drinks 10 beers per day and appears precontemplative as he does not feel like he has a problem and does not want any help with this. Strongly encouraged patient to at minimum decrease his alcohol use however he was not receptive to this or taking any medications to help with cravings at this time. He denies any past psych history and is not interested in any form of treatment at this time. At this time patient denies any suicidal or homical ideations, intent or plan. Patient denies any auditory, visual hallucinations and denies any paranoia or delusions. PAST PSYCHIATRIC HISTORY: Patient no past psych history. Patient denies being on any psychiatric medications. Patient denies any previous psychiatric hospitalizations. Patient denies any psychiatric outpatient follow-up. Patient denies any history of suicide attempts in the past. PAST MEDICAL HISTORY: afib, Hyperlipidemia, Hypertension ALLERGIES: as per EMR. CHEMICAL DEPENDENCY HISTORY: as per HPI. FAMILY PSYCHIATRIC/SUBSTANCE USE HISTORY: Denies SOCIAL HISTORY: Patient lives alone. He is unemployed, on disability MENTAL STATUS EXAM: General Appearance: Patient appears to be stated age is alert but withdrawn. Patient appears to have fair hygiene and grooming wearing hospital gown with poor eye contact. Behavior: Patient is calmly lying in bed without any agitated behavior. Speech: Patient's speech is fluent and nonpressured. Mood/Affect: Patient reports their mood is "ok", affect is congruent Suicidality/Homicidality: Patient denies having any suicidal or homicidal ideation intent or plan. Perceptions: Patient denies any visual hallucinations and denies any auditory hallucinations Though content/process: There is no evidence of any delusional thought content and thought process is linear. Concentration: grossly impaired Judgment and insight: Poor IMPRESSIONS: Alcohol use disorder, severe r/o substance-induced mood disorder PLAN: -At this time patient DOES NOT meet criteria for inpatient psychiatric admission. -Would recommend the following medication changes/additions: patient is not interested in naltrexone for cravings or antidepressants at this time -Hadoop Developer spoke with patient about substance abuse and the harmful effects on medical and mental health, patient verbally understood and agreed. -fish house worker to provide patient substance use treatment resources including AA/NA meetings in the community. -Psychiatry will sign off at this time -Please contact with any questions. 08/19/24 17:08
[2024-08-19] MEDS: LORazepam 0.5 MG TAB PO PRN (20:08)
[2024-08-20 07:55] LABS: African American GFR (CKD) >90 (>60 ml/min/1.73 sqM); Anion Gap 3 mmol/L; Blood Urea Nitrogen 8 mg/dL (9-20); Calcium 8.4 mg/dL (8.4-10.2); Carbon Dioxide 29 mmol/L (22-30); Chloride 104 mmol/L (98-107); Glucose 93 mg/dL (74-99); Non-African American GFR(CKD) >90 (>60 ml/min/1.73 sqM); Potassium 3.9 mmol/L (3.5-5.1); Sodium 136 mmol/L (137-145)
--- NOTE | 2024-08-20 10:15 | P.PN ---
Subjective Progress Note Date: 08/18/24 patient is 68-year-old gentleman with past medical history significant for hypertension, hyperlipidemia, COPD, BPH, A-fib presented the ER because of fall. Patient is not a good historian most of the history has been obtained from the EMR. Patient was apparently found laying on the floor by his daughter. Patient was last seen in normal health by his daughter 3 days ago. Patient has not been eating and drinking for 3 days. There was no obvious trauma. There was no mention of any loss of consciousness. There was no witness to the extremity. There is no complaint of fever or chills. There is no complaint of nausea, vomiting abdominal pain. Because of the fall, patient brought to the ER Initial lab work done in the ER showed WBC 9.4, hemoglobin 15.6, platelet count 117, sodium 132, potassium 4.5, BUN 41, creatinine 0.92, glucose 120, bilirubin 2.1, AST 273, ALT 103, CK7 299, troponin 0.054 UA showing large amount of urine blood, urine RBC 1 serum alcohol level less than 10 EKG done in the ER showed heart rate of 143, irregular rhythm, no ST segment elevation or depression seen, no T-wave inversions seen. Chest x-ray done in the ER showed no acute cardiopulmonary process X-ray foot done showed no evidence of acute fracture CT head done showed no acute intracranial process, did show hypodensity in the cortex of the posterior left frontal lobe suggestive of mineralization or prior hemorrhage. CT cervical spine done showed no evidence of cervical spine fracture, did show large osteophyte anterior to the spine on the anterior longitudinal ligament extending from C2-C7 X-ray pelvis done showed no acute osseous pathology Patient admitted to internal medicine service 08/17. Patient seen and examined. Blood work done this morning showed sodium 132, potassium 3.5, BUN 10, creatinine 0.57, CPK 910. Discussed with patient's daughter, patient is very confused, hallucinating talking about his parents. 08/18/2024 Patient is sitting in the chair. Awake alert but lethargic and weak unable to provide good history. No complaints of chest pain or shortness of breath. Patient is having shallow breath. Afebrile. Laboratory data showed WBC 3.4 hemoglobin 13.1 and platelets 101 sodium 133 potassium 3.2 chloride 107 bicarb is 29 BUN 16 creatinine 0.8 and liver enzymes trending down with AST 97 ALT 82 alk phos 54 and CK level is 422. Albumin 2.3. REVIEW OF SYSTEMS: Review of system cannot be obtained as patient is confused PHYSICAL EXAMINATION: GENERAL: The patient is confused, not in any acute distress. Well developed, well nourished. HEENT: Pupils are round and equally reacting to light. EOMI. No scleral icterus. No conjunctival pallor. Normocephalic, atraumatic. No pharyngeal erythema. No thyromegaly. CARDIOVASCULAR: S1 and S2 present. No murmurs, rubs, or gallops. PULMONARY: Chest is clear to auscultation, no wheezing or crackles. ABDOMEN: Soft, nontender, nondistended, normoactive bowel sounds. No palpable organomegaly. MUSCULOSKELETAL: No joint swelling or deformity. EXTREMITIES: No cyanosis, clubbing, or pedal edema. NEUROLOGICAL: Gross neurological examination did not reveal any focal deficits. SKIN: No rashes. Assessment and plan Status post fall Rhabdomyolysis Hypovolemic hyponatremia Alcohol use disorder Acute transaminitis Paroxysmal A-fib with RVR Nonanion gap metabolic acidosis Generalized weakness and debility Monitor vital signs Monitor CBC Monitor CMP Continue telemetry monitoring Avoid nephrotoxic agent Avoid hypotension Continue IV fluids Oral hydration Continue Eliquis, Lopressor Continue CIWA protocol Cardiology following Nephrology following PT OT consulted Labs and medication were reviewed.. Continue same treatment. Continue with symptomatic treatment. Resume home medication. Monitor labs and vitals. DVT and GI prophylaxis. Further recommendations as per clinical course of the patient Dictation was produced using [employer] dictation software. please excuse any grammatical, word or spelling errors. Objective - Vital Signs Vital signs: Vital Signs Temp 97.6 F 08/18/24 20:00 Pulse 73 08/18/24 20:00 Resp 17 08/18/24 20:00 BP 108/71 08/18/24 20:00 Pulse Ox 95 08/18/24 20:00 FiO2 Intake & Output 08/18/24 08/18/24 08/19/24 06:59 18:59 06:59 Intake Total 120 Output Total 450 900 Balance -450 -780 Intake: Oral 120 Output: Urine 450 900 Other: Voiding Method Indwelling Catheter Indwelling Catheter Indwelling Catheter # Voids 0 # Bowel Movements 0 - Labs CBC & Chem 7: 08/19/24 05:25 08/20/24 05:26 Labs: Abnormal Lab Results - Last 24 Hours (Table) 08/18/24 08/18/24 Range/Units 05:21 05:21 WBC 3.4 L (3.8-10.6) k/uL RBC 3.88 L (4.30-5.90) m/uL MCV 101.6 H (80.0-100.0) fL Plt Count 101 L (150-450) k/uL Lymphocytes # 0.6 L (1.0-4.8) k/uL Sodium 133 L (137-145) mmol/L BUN 6 L (9-20) mg/dL Creatinine 0.58 L (0.66-1.25) mg/dL Calcium 7.9 L (8.4-10.2) mg/dL AST 97 H (17-59) U/L ALT 82 H (4-49) U/L Creatine Kinase 422 H (55-170) U/L Total Protein 4.6 L (6.3-8.2) g/dL Albumin 2.3 L (3.5-5.0) g/dL
--- NOTE | 2024-08-20 10:18 | P.PN ---
Subjective Progress Note Date: 08/19/24 patient is 68-year-old gentleman with past medical history significant for hypertension, hyperlipidemia, COPD, BPH, A-fib presented the ER because of fall. Patient is not a good historian most of the history has been obtained from the EMR. Patient was apparently found laying on the floor by his daughter. Patient was last seen in normal health by his daughter 3 days ago. Patient has not been eating and drinking for 3 days. There was no obvious trauma. There was no mention of any loss of consciousness. There was no witness to the extremity. There is no complaint of fever or chills. There is no complaint of nausea, vomiting abdominal pain. Because of the fall, patient brought to the ER Initial lab work done in the ER showed WBC 9.4, hemoglobin 15.6, platelet count 117, sodium 132, potassium 4.5, BUN 41, creatinine 0.92, glucose 120, bilirubin 2.1, AST 273, ALT 103, CK7 299, troponin 0.054 UA showing large amount of urine blood, urine RBC 1 serum alcohol level less than 10 EKG done in the ER showed heart rate of 143, irregular rhythm, no ST segment elevation or depression seen, no T-wave inversions seen. Chest x-ray done in the ER showed no acute cardiopulmonary process X-ray foot done showed no evidence of acute fracture CT head done showed no acute intracranial process, did show hypodensity in the cortex of the posterior left frontal lobe suggestive of mineralization or prior hemorrhage. CT cervical spine done showed no evidence of cervical spine fracture, did show large osteophyte anterior to the spine on the anterior longitudinal ligament extending from C2-C7 X-ray pelvis done showed no acute osseous pathology Patient admitted to internal medicine service 08/17. Patient seen and examined. Blood work done this morning showed sodium 132, potassium 3.5, BUN 10, creatinine 0.57, CPK 910. Discussed with patient's daughter, patient is very confused, hallucinating talking about his parents. 08/18/2024 Patient is sitting in the chair. Awake alert but lethargic and weak unable to provide good history. No complaints of chest pain or shortness of breath. Patient is having shallow breath. Afebrile. Laboratory data showed WBC 3.4 hemoglobin 13.1 and platelets 101 sodium 133 potassium 3.2 chloride 107 bicarb is 29 BUN 16 creatinine 0.8 and liver enzymes trending down with AST 97 ALT 82 alk phos 54 and CK level is 422. Albumin 2.3. 08/19/2024 Patient is resting in the bed. Patient is more awake and oriented. No complaints of chest pain or shortness with. Was able to provide some history. No cough or sputum production. Patient has been afebrile. Patient does have poor oral intake. Chest x-ray showed acute cardiopulmonary disease involving the left lung base with small effusion and atelectasis/pneumonia. Procalcitonin level is 0.05. PT OT was consulted. Nephrology is on board. PHYSICAL EXAMINATION: GENERAL: The patient is confused, not in any acute distress. Well developed, well nourished. HEENT: Pupils are round and equally reacting to light. EOMI. No scleral icterus. No conjunctival pallor. Normocephalic, atraumatic. No pharyngeal erythema. No thyromegaly. CARDIOVASCULAR: S1 and S2 present. No murmurs, rubs, or gallops. PULMONARY: Chest is clear to auscultation, no wheezing or crackles. ABDOMEN: Soft, nontender, nondistended, normoactive bowel sounds. No palpable organomegaly. MUSCULOSKELETAL: No joint swelling or deformity. EXTREMITIES: No cyanosis, clubbing, or pedal edema. NEUROLOGICAL: Gross neurological examination did not reveal any focal deficits. SKIN: No rashes. Assessment and plan Status post fall Rhabdomyolysis Hypovolemic hyponatremia Alcohol use disorder Acute transaminitis Paroxysmal A-fib with RVR Nonanion gap metabolic acidosis Generalized weakness and debility Monitor vital signs Monitor CBC Monitor CMP Continue telemetry monitoring Avoid nephrotoxic agent Avoid hypotension Continue IV fluids Oral hydration Continue Eliquis, Lopressor Continue CIWA protocol Patient was seen by cardiology. Nephrology following PT OT consulted Anticipate discharge in next 24 hours Labs and medication were reviewed.. Continue same treatment. Continue with symptomatic treatment. Resume home medication. Monitor labs and vitals. DVT and GI prophylaxis. Further recommendations as per clinical course of the patient Dictation was produced using [employer] dictation software. please excuse any grammatical, word or spelling errors. Objective - Vital Signs Vital signs: Vital Signs Temp 98.1 F 08/19/24 19:42 Pulse 74 08/19/24 19:42 Resp 16 08/19/24 19:42 BP 115/73 08/19/24 19:42 Pulse Ox 96 08/19/24 19:42 FiO2 Intake & Output 08/19/24 08/19/24 08/20/24 06:59 18:59 06:59 Intake Total 100 Output Total 620 1900 Balance -620 -1800 Weight 95 kg Intake: Oral 100 Output: Urine 620 1900 Other: Voiding Method Indwelling Catheter Indwelling Catheter Indwelling Catheter - Labs CBC & Chem 7: 08/19/24 05:25 08/20/24 05:26 Labs: Abnormal Lab Results - Last 24 Hours (Table) 08/19/24 08/19/24 Range/Units 05:25 05:25 RBC 3.87 L (4.30-5.90) m/uL Hct 38.8 L (39.0-53.0) % MCV 100.3 H (80.0-100.0) fL Plt Count 120 L (150-450) k/uL Lymphocytes # 0.5 L (1.0-4.8) k/uL Sodium 133 L (137-145) mmol/L BUN 5 L (9-20) mg/dL Creatinine 0.54 L (0.66-1.25) mg/dL Glucose 105 H (74-99) mg/dL Calcium 8.0 L (8.4-10.2) mg/dL AST 64 H (17-59) U/L ALT 67 H (4-49) U/L Total Protein 4.5 L (6.3-8.2) g/dL Albumin 2.3 L (3.5-5.0) g/dL
--- NOTE | 2024-08-20 10:43 | P.PN ---
Subjective Progress Note Date: 08/20/24 HISTORY OF PRESENT ILLNESS: This is a 68-year-old male with a past medical history significant for atrial fibrillation, hyperlipidemia, hypertension, former nicotine dependence, alcohol abuse. Patient does not follow with a field marketing representative. We have been asked to see the patient in consultation for A-fib with RVR. Patient examined at the bedside in the emergency room. Apparently, the patient tripped and fell about 3 days ago. He was unable to get up and laid on the floor for 3 days. He was found by his daughter. Patient does not believe that he lost consciousness. Patient was found to have rhabdomyolysis. Patient additionally was found to be in A-fib with RVR. He is currently on Cardizem drip at 5 mg an hour. Bedside telemetry reveals atrial fibrillation with a heart rate in the 90s. Patient is a former cigarette smoker. Does report daily alcohol use. He states that he drinks at least a sixpack a day. DIAGNOSTICS: - EKG reveals A-fib with RVR - Chest xray negative for acute process - Laboratory data: WBC 3.9. Hemoglobin 12.3. Platelet count 93. Sodium 132. Potassium 3.6. BUN 21. Creatinine 0.67. Magnesium 2.0. Creatinine kinase 7299. Repeat 2245. Troponin 0.054. 0.056. 0.046. - Current home cardiac medications include Eliquis 5 mg twice a day, Lipitor 20 mg at night, metoprolol tartrate 25 mg daily, lisinopril 40 mg daily - Most recent echocardiogram obtained in December 2021 revealed ejection fraction 60 to 65%, mild aortic regurgitation, mild aortic stenosis, mild tricuspid regurgitation - Cardiac catheterization history: Unknown 08/17/2024 Patient examined this morning at the bedside. Patient is feeling member is present. Patient currently denies chest pain or pressure. He denies shortness of breath. He remains in atrial fibrillation with heart rate in the 80s. Echocardiogram completed revealing ejection fraction 45 to 50% with mild to moderate MR. 08/18/24 Patient is seen and examined. He is sleeping soundly. He has been maintained on Eliquis 5 mg twice daily as well as Lopressor 25 mg twice daily. Patient remains in atrial fibrillation with rate control in the 80s and 90s, blood pressure 105/71, pulse ox 97% on room air. Repeat blood work reveals WBC 3.4, hemoglobin 13.1, creatinine 0.58, potassium 3.6. Liver enzymes are improved w ith AST of 97 and ALT 82. CK is down to 422.. 08/19/24 Patient is seen and examined. He remains in atrial fibrillation with controlled rhythm. Family member is at bedside and discussed use of Eliquis. Patient apparently has frequent falls at home and recommendations will be to discontinue Eliquis at discharge. Heart rate is in the 70s to 90s, blood pressure 118/76, pulse ox 97% on room air. Repeat blood work reveals hemoglobin of 13, creatinine 0.54. AST 64 and ALT 67. Chest x-ray reveals left lung base opacity. Plan is for discharge to [facility]. 08/20/24 Patient seen and examined. Patient remains in atrial fibrillation with controlled rhythm. Yesterday, we discontinued Eliquis due to patient's history of falls and EtOH abuse. Patient is maintained on metoprolol 25 mg twice daily. PHYSICAL EXAM: VITAL SIGNS: Reviewed. GENERAL: Well-developed in no acute distress. HEENT: Head is normocephalic. Pupils are equal, round. Sclerae anicteric. Mucous membranes of the mouth are moist. Neck supple. No JVD or thyromegaly LUNGS: Respirations even and unlabored. Lungs essentially clear to auscultation bilaterally. HEART: Irregular rate and rhythm. S1 and S2 heard. ABDOMEN: Soft. Nondistended. Nontender. EXTREMITIES: No clubbing or cyanosis. Peripheral pulses intact. No lower extr emity edema. Patient with bruises and erythema to right side of body. ASSESSMENT: Atrial fibrillation with RVR, likely persistent, currently rate controlled Rhabdomyolysis, improving Elevated troponins, flat, type II LA, no evidence of acute coronary syndrome New onset mild cardiomyopathy EF 45-50, suspect nonischemic Hypertension Hyperlipidemia Former nicotine dependence Alcohol abuse, patient drinks at least 6 beers daily Frequent falls per patient PLAN: Continue metoprolol 25 mg twice a day Abstinence from alcohol recommended Patient does report having frequent falls at home and drinks alcohol daily. Family member is at the bedside and confirms this. Eliquis will be discontinued. At the time of discharge, patient will follow-up with Dr. Paula. Patient is cleared for discharge from cardiology. Cardiology will sign off this case and follow on an as-needed basis. Please reconsult for any new concerns. Nurse practitioner note has been reviewed by physician. Signing provider agrees with the documented findings, assessment, and plan of care documented by CREW LEADER/CONTROL ROOM OPERATOR as a scribe. Blood pressure 124/80, heart rate in the 80s. Objective - Vital Signs Vital signs: Vital Signs Temp 98.5 F 08/20/24 04:00 Pulse 85 08/20/24 04:00 Resp 16 08/20/24 04:00 BP 133/84 08/20/24 04:00 Pulse Ox 97 08/20/24 04:00 FiO2 Intake & Output 08/19/24 08/20/24 08/20/24 18:59 06:59 18:59 Intake Total 100 10 180 Output Total 1900 0 350 Balance -1800 10 -170 Intake: IV 10 Invasive Line 4 10 Oral 100 180 Output: Urine 1900 0 350 Other: Voiding Method Indwelling Catheter Indwelling Catheter - Labs CBC & Chem 7: 08/19/24 05:25 08/20/24 05:26 Labs: Abnormal Lab Results - Last 24 Hours (Table) 08/20/24 Range/Units 05:26 Sodium 136 L (137-145) mmol/L BUN 8 L (9-20) mg/dL
--- NOTE | 2024-08-20 10:59 | FL ---
EXAMINATION TYPE: FL barium swallow w video DATE OF EXAM: 08/20/2024 CLINICAL HISTORY: 68-year-old male COPD, pneumonia, coughing with thin liquids, assess for aspiration TECHNIQUE: Deglutition study is performed utilizing thin liquid barium, honey and nectar thick liqui d barium, barium thick applesauce, and barium coated cracker. COMPARISON: None. Total fluoroscopy time: 3 minutes 45 seconds. Total images: None. Real-time fluoroscopy was provided to speech pathology. Total dose: 328 mGycm2. FINDINGS: There is bulky bridging anterior bone from C2 down the visualized cervical spine. This encroaches ont o the prevertebral tissues narrowing the hypopharyngeal space. With swallows, this results in progressive accumulation and the hypopharynx and piriform sinus. There is aspiration after the swallow of the accumulating residuals with thin, nectar, and honey cons istencies. The patient is edentulous and there is incomplete mastication. A large pérez cracker fragment lodges in the hypopharynx. Eventually clears after softening and thin liquid wash. IMPRESSION: 1. Bulky bridging anterior hyperostosis from C2 down through the visualized cervical spine uniformly narrowing the hypopharynx. 2. This contributes to progressively accumulating residuals in the hypopharynx and piriform sinuses. 3. Aspiration of these residuals after the swallow. This occurs with thin, nectar, and honey consiste ncies. 4. Incomplete mastication. A large pérez cracker fragment lodges in the hypopharynx. Please refer to speech therapist notes for further details if necessary. [facility], , 08/20/2024 10:56 AM
--- NOTE | 2024-08-20 11:08 | P.PN ---
Subjective Patient is seen in follow-up for rhabdomyolysis. CK levels trending down. Renal function at baseline. Off IV fluids. Poor historian. On dysphagia 1 diet. Vital signs are stable. General: No acute distress. HEENT: Head exam is unremarkable. LUNGS: No audible rhonchi or wheezes. HEART: Rate and Rhythm are regular. ABDOMEN: No distention. EXTREMITITES: No edema. Objective - Vital Signs Vital signs: Vital Signs Temp 98.1 F 08/20/24 08:30 Pulse 83 08/20/24 08:30 Resp 18 08/20/24 08:30 BP 124/80 08/20/24 08:30 Pulse Ox 97 08/20/24 04:00 FiO2 Intake & Output 08/19/24 08/20/24 08/20/24 18:59 06:59 18:59 Intake Total 100 10 180 Output Total 1900 0 650 Balance -1800 10 -470 Intake: IV 10 Invasive Line 4 10 Oral 100 180 Output: Urine 1900 0 650 Other: Voiding Method Indwelling Catheter Indwelling Catheter Indwelling Catheter - Labs CBC & Chem 7: 08/19/24 05:25 08/20/24 05:26 Labs: Abnormal Lab Results - Last 24 Hours (Table) 08/20/24 Range/Units 05:26 Sodium 136 L (137-145) mmol/L BUN 8 L (9-20) mg/dL Assessment and Plan Plan: Assessment: 1. Rhabdomyolysis secondary to immobility. CK levels trending down. UA with large blood and no RBCs suggestive of myoglobinuria. 2. Nongap metabolic acidosis secondary to IV fluids. Improved. 3. A-fib with RVR status post Cardizem drip. On Lopressor. 4. Hyponatremia secondary to hypotonic fluid infusion. Improved. 5. Chronic systolic CHF ejection fraction of 45 to 50% with mild pulmonary hypertension, mild to moderate mitral and mild tricuspid and aortic regurgitation. Plan: Off IV fluids. Encouraged oral intake. Continue to monitor renal function and urine output. Repeat labs and CK level in the morning.
--- NOTE | 2024-08-20 16:04 | P.CNOR ---
History of Present Illness - [facility] Consult date: 08/20/24 Requesting physician: Savannah Wynne Consult reason: other (Possible body growth C-spine, difficulty swallowing) History of present illness: Patient is a 68-year-old male who presented to hospital after a fall at home. Patient reportedly was lying down on the ground for 3 days before his daughter found him. Patient has a past medical history significant for hypertension, hyperlipidemia, COPD, A-fib. According to the medicine H&P the patient had not been eating or drinking 3 days prior to arrival in the emergency department. There is no obvious trauma. Orthopedics has been consulted due to abnormal findings on cervical spine imaging study and difficulty swallowing. Patient was seen at bedside this afternoon on 3 S. cardiac floor sitting back in chair with legs elevated and Jones/catheter currently in place. Patient denies any current neck pain. Patient states cannot recall the exact date he fell at home but denies losing consciousness or hitting his head. Patient denies any previous orthopedic surgical history. He states for the past 6 months he has been having some right shoulder pain of which he cannot recall what he was doing when this started. Patient denies any fine motor skill issues. Patient states he ambulates at home with the use of walker and cane. Patient does admit to some problems with swallowing. Patient denies any difficulties grasping objects. Patient denies any numbness or tingling in the bilateral upper and lower extremities. Patient denies any loss of bowel/bladder control. Patient denies saddle anesthesia. Past Medical History Past Medical History: Atrial Fibrillation, Hyperlipidemia, Hypertension History of Any Multi-Drug Resistant Organisms: None Reported Past Surgical History: No Surgical Hx Reported Additional Past Surgical History / Comment(s): gallstones removed, vasectomy Past Anesthesia/Blood Transfusion Reactions: No Reported Reaction Past Psychological History: Unable to Obtain Smoking Status: Former smoker Past Alcohol Use History: Daily Additional Past Alcohol Use History / Comment(s): pt. states he was a pack and a half a day smoker for 40 years, pt. quit smoking 10 years ago, pt. states he drinks 8 beers daily Past Drug Use History: None Reported - Past Family History Mother Family Medical History: Cancer Brother(s) Family Medical History: Liver Disease Medications and Allergies Home Medications Medication Instructions Recorded Confirmed Type Atorvastatin Calcium [Lipitor] 20 mg PO HS 12/23/21 08/15/24 History Loratadine [Claritin] 10 mg PO DAILY 12/23/21 08/15/24 History lisinopriL 40 mg PO DAILY 12/23/21 08/15/24 History Metoprolol Tartrate [Lopressor] 25 mg PO DAILY 08/15/24 08/15/24 History Allergies Allergy/AdvReac Type Severity Reaction Status Date / Time No Known Allergies Allergy Verified 08/15/24 14:22 Physical Examination Inspection: Abrasion over the right anterior knee. Negative for any open fra ctures, significant erythema/ecchymosis on rest of exam. Sensation: Equal, symmetric, bilat intact throughout the upper and lower extremities on exam. Palpation: Nontender to palpation throughout exam of cervical spine Range of motion: Patient has good range of motion throughout left upper extrem ity exam. Patient does have full range of motion throughout right upper extremity and elbow flexion/tension in right wrist flexion and extension. Patient does have limited active range of motion in the right shoulder. Patient does have good passive range of motion of the right shoulder to about 145 degrees forward elevation. Patient has good range of motion of the left lower extremity on exam. There is limited active range of motion in the right hip and right knee in flexion and extension. Motor: 4/5 in all major motor groups in bilateral upper extremities. 4-/5 in resisted right hip flexion extension and right knee flexion-extension. 4/5 in left lower extremity on exam. Neurovascular: Radial pulse intact, 2+ bilaterally. Cap refill somewhat delayed. Special test: Negative Roger bilaterally. Negative Spurling bilaterally. Results - Labs Labs: Abnormal Lab Results - Last 24 Hours (Table) 08/20/24 Range/Units 05:26 Sodium 136 L (137-145) mmol/L BUN 8 L (9-20) mg/dL H & H 08/15/24 08/16/24 08/18/24 Range/Units 12:43 06:09 05:21 Hgb 15.6 12.3 L D 13.1 (13.0-17.5) gm/dL Hct 45.9 36.9 L 39.4 (39.0-53.0) % 08/19/24 Range/Units 05:25 Hgb 13.0 (13.0-17.5) gm/dL Hct 38.8 L (39.0-53.0) % Coagulation 08/15/24 Range/Units 12:43 INR 1.0 (<1.2) Result Diagrams: 08/19/24 05:25 08/20/24 05:26 - Diagnostic results CT scan - cervical: report reviewed, image reviewed (There is evident ossification of the anterior longitudinal ligament based on the cervical spine CT as well as some mild central canal stenosis.) Assessment and Plan Assessment: 1. Central canal stenosis, mild; cervical spondylosis; degenerative disc disease; anterior longitudinal ligament ossification Plan: 1. Central canal stenosis, mild; cervical spondylosis; degenerative disc disease; anterior longitudinal ligament ossification -CT scan of the cervical spine has been reviewed. I did discuss the findings of the exam and imaging with my attending, Dr. Jain. At this time we are not recommending any emergent/urgent orthopedic surgical intervention. Patient did not demonstrate any neuropathic signs on exam. There is evident ossification of the anterior longitudinal ligament based on the cervical spine CT as well as some mild central canal stenosis. The patient may weight-bear as tolerated with a walker and cane. Pain medication as needed. We are recommending conservative measures at this time. Patient may follow-up in the outpatient setting as needed for further workup. Patient is stable from orthopedic standpoint for discharge from the hospital. At this time orthopedics is signing off. Please do not hesitate to contact us for any further questions. 2. Appreciate medical management and other specialty recommendations 3. Pain management -toradol 4. DVT prophylaxis recs 5. GI prophylaxis -Colace; Pepcid 6. PT/OT -weightbearing as tolerated with walker/cane assistance as needed 7. Encourage incentive spirometer use 8. Appreciate consult Time with Patient: Less than 30
[2024-08-20] MEDS ORDERED: KETOROLAC 15 MG/ML 1 ML VIAL IVP PRN (23:41)
[2024-08-21 08:26] LABS: African American GFR (CKD) >90 (>60 ml/min/1.73 sqM); Anion Gap 3 mmol/L; Blood Urea Nitrogen 8 mg/dL (9-20); Calcium 8.3 mg/dL (8.4-10.2); Carbon Dioxide 27 mmol/L (22-30); Chloride 106 mmol/L (98-107); Creatine Kinase 433 U/L (55-170); Glucose 89 mg/dL (74-99); Non-African American GFR(CKD) >90 (>60 ml/min/1.73 sqM); Potassium 3.8 mmol/L (3.5-5.1); Sodium 136 mmol/L (137-145)
--- NOTE | 2024-08-21 10:09 | P.PN ---
Subjective Progress Note Date: 08/20/24 patient is 68-year-old gentleman with past medical history significant for hypertension, hyperlipidemia, COPD, BPH, A-fib presented the ER because of fall. Patient is not a good historian most of the history has been obtained from the EMR. Patient was apparently found laying on the floor by his daughter. Patient was last seen in normal health by his daughter 3 days ago. Patient has not been eating and drinking for 3 days. There was no obvious trauma. There was no mention of any loss of consciousness. There was no witness to the extremity. There is no complaint of fever or chills. There is no complaint of nausea, vomiting abdominal pain. Because of the fall, patient brought to the ER Initial lab work done in the ER showed WBC 9.4, hemoglobin 15.6, platelet count 117, sodium 132, potassium 4.5, BUN 41, creatinine 0.92, glucose 120, bilirubin 2.1, AST 273, ALT 103, CK7 299, troponin 0.054 UA showing large amount of urine blood, urine RBC 1 serum alcohol level less than 10 EKG done in the ER showed heart rate of 143, irregular rhythm, no ST segment elevation or depression seen, no T-wave inversions seen. Chest x-ray done in the ER showed no acute cardiopulmonary process X-ray foot done showed no evidence of acute fracture CT head done showed no acute intracranial process, did show hypodensity in the cortex of the posterior left frontal lobe suggestive of mineralization or prior hemorrhage. CT cervical spine done showed no evidence of cervical spine fracture, did show large osteophyte anterior to the spine on the anterior longitudinal ligament extending from C2-C7 X-ray pelvis done showed no acute osseous pathology Patient admitted to internal medicine service 08/17. Patient seen and examined. Blood work done this morning showed sodium 132, potassium 3.5, BUN 10, creatinine 0.57, CPK 910. Discussed with patient's daughter, patient is very confused, hallucinating talking about his parents. 08/18/2024 Patient is sitting in the chair. Awake alert but lethargic and weak unable to provide good history. No complaints of chest pain or shortness of breath. Patient is having shallow breath. Afebrile. Laboratory data showed WBC 3.4 hemoglobin 13.1 and platelets 101 sodium 133 potassium 3.2 chloride 107 bicarb is 29 BUN 16 creatinine 0.8 and liver enzymes trending down with AST 97 ALT 82 alk phos 54 and CK level is 422. Albumin 2.3. 08/19/2024 Patient is resting in the bed. Patient is more awake and oriented. No complaints of chest pain or shortness with. Was able to provide some history. No cough or sputum production. Patient has been afebrile. Patient does have poor oral intake. Chest x-ray showed acute cardiopulmonary disease involving the left lung base with small effusion and atelectasis/pneumonia. Procalcitonin level is 0.05. PT OT was consulted. Nephrology is on board. 08/20/2024 Patient is lying in the bed. Awake alert and oriented. No complaints of chest pain or shortness of breath. Patient remains in atrial fibrillation. Patient failed swallow evaluation and is currently made NPO. Also noted to have possible bony projection from the cervical spine making him difficult to swallow. Patient was seen by speech/swallow pathology. Orthopedic surgery was consulted for evaluation. Was started on IV hydration. Laboratory data reviewed. Cardiology and nephrology is on board. PHYSICAL EXAMINATION: GENERAL: The patient is confused, not in any acute distress. Well developed, well nourished. HEENT: Pupils are round and equally reacting to light. EOMI. No scleral icterus. No conjunctival pallor. Normocephalic, atraumatic. No pharyngeal erythema. No thyromegaly. CARDIOVASCULAR: S1 and S2 present. No murmurs, rubs, or gallops. PULMONARY: Chest is clear to auscultation, no wheezing or crackles. ABDOMEN: Soft, nontender, nondistended, normoactive bowel sounds. No palpable organomegaly. MUSCULOSKELETAL: No joint swelling or deformity. EXTREMITIES: No cyanosis, clubbing, or pedal edema. NEUROLOGICAL: Gross neurological examination did not reveal any focal deficits. SKIN: No rashes. Assessment and plan Status post fall/recurrent falls Rhabdomyolysis Hypovolemic hyponatremia Alcohol use disorder Acute transaminitis Paroxysmal A-fib with RVR Nonanion gap metabolic acidosis Generalized weakness and debility Difficulty swallowing/failed swallow eval CODE STATUS DNR/DNI Monitor vital signs Monitor CBC Monitor CMP Continue telemetry monitoring Avoid nephrotoxic agent Avoid hypotension Continue IV fluids. Patient is currently NPO. Continue with Lopressor. Eliquis is on hold due to recurrent falls. Continue CIWA protocol PT OT consulted Orthopedic surgery consult Patient's daughter would not like any surgical intervention at this time. Patient wants to be DNR/DNI Labs and medication were reviewed.. Continue with symptomatic treatment. Monitor labs and vitals. DVT and GI prophylaxis. Dictation was produced using [employer] dictation software. please excuse any grammatical, word or spelling errors. Objective - Vital Signs Vital signs: Vital Signs Temp 98.1 F 08/20/24 08:30 Pulse 84 08/20/24 16:00 Resp 18 08/20/24 16:00 BP 122/74 08/20/24 16:00 Pulse Ox 96 08/20/24 16:00 FiO2 Intake & Output 08/20/24 08/20/24 08/21/24 06:59 18:59 06:59 Intake Total 10 180 Output Total 0 1350 Balance 10 -1170 Intake: IV 10 Invasive Line 4 10 Oral 180 Output: Urine 0 1350 Other: Voiding Method Indwelling Catheter Indwelling Catheter - Labs CBC & Chem 7: 08/19/24 05:25 08/21/24 06:27 Labs: Abnormal Lab Results - Last 24 Hours (Table) 08/20/24 Range/Units 05:26 Sodium 136 L (137-145) mmol/L BUN 8 L (9-20) mg/dL
[2024-08-21] MEDS: DILTIAZEM 125 MG in SODIUM CHLORIDE 0.9% 100 ML IV SCH (10:28)
--- NOTE | 2024-08-21 10:48 | P.PN ---
Subjective Patient is seen in follow-up for rhabdomyolysis. CK level improved from admission and stable at 433 today. Renal function at baseline. Off IV fluids. Failed swallow eval. Now NPO. Being started on Cardizem drip. Vital signs are stable. General: No acute distress. HEENT: Head exam is unremarkable. LUNGS: No audible rhonchi or wheezes. HEART: Rate and Rhythm are regular. ABDOMEN: No distention. EXTREMITITES: No edema. Objective - Vital Signs Vital signs: Vital Signs Temp 97.9 F 08/21/24 03:15 Pulse 67 08/21/24 03:15 Resp 18 08/21/24 03:15 BP 129/73 08/21/24 03:15 Pulse Ox 95 08/21/24 03:15 FiO2 Intake & Output 08/20/24 08/21/24 08/21/24 18:59 06:59 18:59 Intake Total 180 10 Output Total 1350 1275 Balance -1170 -1265 Weight 87.5 kg Intake: IV 10 Invasive Line 5 10 Oral 180 Output: Urine 1350 1275 Other: Voiding Method Indwelling Catheter Indwelling Catheter - Labs CBC & Chem 7: 08/19/24 05:25 08/21/24 06:27 Labs: Abnormal Lab Results - Last 24 Hours (Table) 08/21/24 Range/Units 06:27 Sodium 136 L (137-145) mmol/L BUN 8 L (9-20) mg/dL Creatinine 0.60 L (0.66-1.25) mg/dL Calcium 8.3 L (8.4-10.2) mg/dL Creatine Kinase 433 H (55-170) U/L Assessment and Plan Plan: Assessment: 1. Rhabdomyolysis secondary to immobility. CK levels improved. UA with large blood and no RBCs suggestive of myoglobinuria. 2. Nongap metabolic acidosis secondary to IV fluids. Improved. 3. A-fib with RVR status post Cardizem drip. On Lopressor. Cardizem drip will be resumed as he is now NPO. 4. Hyponatremia secondary to hypotonic fluid infusion. Improved. 5. Chronic systolic CHF ejection fraction of 45 to 50% with mild pulmonary hypertension, mild to moderate mitral and mild tricuspid and aortic regurgitation. Plan: Resume normal saline at 50 cc an hour. Encouraged oral intake. Continue to monitor renal function and urine output. Plan is to go home on hospice tomorrow.
[2024-08-21] MEDS: SODIUM CHLORIDE 0.9% 1,000 ML IV SCH (11:00)
--- NOTE | 2024-08-21 11:48 | P.PN ---
Subjective Progress Note Date: 08/21/24 HISTORY OF PRESENT ILLNESS: This is a 68-year-old male with a past medical history significant for atrial fibrillation, hyperlipidemia, hypertension, former nicotine dependence, alcohol abuse. Patient does not follow with a senior financial. We have been asked to see the patient in consultation for A-fib with RVR. Patient examined at the bedside in the emergency room. Apparently, the patient tripped and fell about 3 days ago. He was unable to get up and laid on the floor for 3 days. He was found by his daughter. Patient does not believe that he lost consciousness. Patient was found to have rhabdomyolysis. Patient additionally was found to be in A-fib with RVR. He is currently on Cardizem drip at 5 mg an hour. Bedside telemetry reveals atrial fibrillation with a heart rate in the 90s. Patient is a former cigarette smoker. Does report daily alcohol use. He states that he drinks at least a sixpack a day. DIAGNOSTICS: - EKG reveals A-fib with RVR - Chest xray negative for acute process - Laboratory data: WBC 3.9. Hemoglobin 12.3. Platelet count 93. Sodium 132. Potassium 3.6. BUN 21. Creatinine 0.67. Magnesium 2.0. Creatinine kinase 7299. Repeat 2245. Troponin 0.054. 0.056. 0.046. - Current home cardiac medications include Eliquis 5 mg twice a day, Lipitor 20 mg at night, metoprolol tartrate 25 mg daily, lisinopril 40 mg daily - Most recent echocardiogram obtained in December 2021 revealed ejection fraction 60 to 65%, mild aortic regurgitation, mild aortic stenosis, mild tricuspid regurgitation - Cardiac catheterization history: Unknown 08/17/2024 Patient examined this morning at the bedside. Patient is feeling member is present. Patient currently denies chest pain or pressure. He denies shortness of breath. He remains in atrial fibrillation with heart rate in the 80s. Echocardiogram completed revealing ejection fraction 45 to 50% with mild to moderate MR. 08/18/24 Patient is seen and examined. He is sleeping soundly. He has been maintained on Eliquis 5 mg twice daily as well as Lopressor 25 mg twice daily. Patient remains in atrial fibrillation with rate control in the 80s and 90s, blood pressure 105/71, pulse ox 97% on room air. Repeat blood work reveals WBC 3.4, hemoglobin 13.1, creatinine 0.58, potassium 3.6. Liver enzymes are improved w ith AST of 97 and ALT 82. CK is down to 422.. 08/19/24 Patient is seen and examined. He remains in atrial fibrillation with controlled rhythm. Family member is at bedside and discussed use of Eliquis. Patient apparently has frequent falls at home and recommendations will be to discontinue Eliquis at discharge. Heart rate is in the 70s to 90s, blood pressure 118/76, pulse ox 97% on room air. Repeat blood work reveals hemoglobin of 13, creatinine 0.54. AST 64 and ALT 67. Chest x-ray reveals left lung base opacity. Plan is for discharge to ECF. 08/20/24 Patient seen and examined. Patient remains in atrial fibrillation with controlled rhythm. Yesterday, we discontinued Eliquis due to patient's history of falls and EtOH abuse. Patient is maintained on metoprolol 25 mg twice daily. 08/21/2024 Yesterday, cardiology has signed off patient as his rhythm was atrial fibrillation with a controlled rate on the current medications. However, patient was found to have abnormal modified barium swallow finding bulky bridging anterior hyperostosis of C to narrowing the hypopharynx with residuals and aspiration and is now NPO. His heart rate is running no elevated with minimal activity up to the 160s, currently running 126 at rest. Patient remains in atrial fibrillation. If he does not want to pursue any aggressive treatment, other option is comfort care. Patient is stating that he does not want to have anything like a PEG tube placed. He has been seen by orthopedics for central canal stenosis cervical spondylosis to generative disc disease and no surgical intervention was planned at this time. PHYSICAL EXAM: VITAL SIGNS: Reviewed. GENERAL: Well-developed in no acute distress. HEENT: Head is normocephalic. Pupils are equal, round. Sclerae anicteric. Mucous membranes of the mouth are moist. Neck supple. No JVD or thyromegaly LUNGS: Respirations even and unlabored. Lungs essentially clear to auscultation bilaterally. HEART: Irregular rate and rhythm. S1 and S2 heard. ABDOMEN: Soft. Nondistended. Nontender. EXTREMITIES: No clubbing or cyanosis. Peripheral pulses intact. No lower extremity edema. Patient with bruises and erythema to right side of body. ASSESSMENT: Atrial fibrillation with RVR, likely persistent, currently rate controlled Rhabdomyolysis, improving Elevated troponins, flat, type II PA, no evidence of acute coronary syndrome New onset mild cardiomyopathy EF 45-50, suspect nonischemic Hypertension Hyperlipidemia Former nicotine dependence Alcohol abuse, patient drinks at least 6 beers daily Frequent falls per patient Failed modified barium swallow, n.p.o. status PLAN: We discontinued Eliquis due to fall risk and alcohol abuse Patient unable to take oral metoprolol Start patient on Cardizem drip 5 mg/h Abstinence from alcohol recommended At the time of discharge, patient will follow-up with Dr. Paula. Nurse practitioner note has been reviewed by physician. Signing provider agrees with the documented findings, assessment, and plan of care documented by TOOL MARKER as a scribe. Blood pressure 124/80, heart rate in the 80s. Objective - Vital Signs Vital signs: Vital Signs Temp 98.7 F 08/21/24 08:00 Pulse 114 H 08/21/24 08:00 Resp 18 08/21/24 08:00 BP 126/88 08/21/24 08:00 Pulse Ox 97 08/21/24 08:00 FiO2 Intake & Output 08/20/24 08/21/24 08/21/24 18:59 06:59 18:59 Intake Total 180 10 10 Output Total 1350 1275 Balance -1170 -1265 10 Weight 87.5 kg Intake: IV 10 10 Invasive Line 5 10 10 Oral 180 Output: Urine 1350 1275 Other: Voiding Method Indwelling Catheter Indwelling Catheter Indwelling Catheter - Labs CBC & Chem 7: 08/19/24 05:25 08/21/24 06:27 Labs: Abnormal Lab Results - Last 24 Hours (Table) 08/21/24 Range/Units 06:27 Sodium 136 L (137-145) mmol/L BUN 8 L (9-20) mg/dL Creatinine 0.60 L (0.66-1.25) mg/dL Calcium 8.3 L (8.4-10.2) mg/dL Creatine Kinase 433 H (55-170) U/L
[2024-08-22 00:08] VITALS: RESP 16
--- NOTE | 2024-08-22 00:37 | P.PN ---
Subjective Progress Note Date: 08/21/24 patient is 68-year-old gentleman with past medical history significant for hypertension, hyperlipidemia, COPD, BPH, A-fib presented the ER because of fall. Patient is not a good historian most of the history has been obtained from the EMR. Patient was apparently found laying on the floor by his daughter. Patient was last seen in normal health by his daughter 3 days ago. Patient has not been eating and drinking for 3 days. There was no obvious trauma. There was no mention of any loss of consciousness. There was no witness to the extremity. There is no complaint of fever or chills. There is no complaint of nausea, vomiting abdominal pain. Because of the fall, patient brought to the ER Initial lab work done in the ER showed WBC 9.4, hemoglobin 15.6, platelet count 117, sodium 132, potassium 4.5, BUN 41, creatinine 0.92, glucose 120, bilirubin 2.1, AST 273, ALT 103, CK7 299, troponin 0.054 UA showing large amount of urine blood, urine RBC 1 serum alcohol level less than 10 EKG done in the ER showed heart rate of 143, irregular rhythm, no ST segment elevation or depression seen, no T-wave inversions seen. Chest x-ray done in the ER showed no acute cardiopulmonary process X-ray foot done showed no evidence of acute fracture CT head done showed no acute intracranial process, did show hypodensity in the cortex of the posterior left frontal lobe suggestive of mineralization or prior hemorrhage. CT cervical spine done showed no evidence of cervical spine fracture, did show large osteophyte anterior to the spine on the anterior longitudinal ligament extending from C2-C7 X-ray pelvis done showed no acute osseous pathology Patient admitted to internal medicine service 08/17. Patient seen and examined. Blood work done this morning showed sodium 132, potassium 3.5, BUN 10, creatinine 0.57, CPK 910. Discussed with patient's daughter, patient is very confused, hallucinating talking about his parents. 08/18/2024 Patient is sitting in the chair. Awake alert but lethargic and weak unable to provide good history. No complaints of chest pain or shortness of breath. Patient is having shallow breath. Afebrile. Laboratory data showed WBC 3.4 hemoglobin 13.1 and platelets 101 sodium 133 potassium 3.2 chloride 107 bicarb is 29 BUN 16 creatinine 0.8 and liver enzymes trending down with AST 97 ALT 82 alk phos 54 and CK level is 422. Albumin 2.3. 08/19/2024 Patient is resting in the bed. Patient is more awake and oriented. No complaints of chest pain or shortness with. Was able to provide some history. No cough or sputum production. Patient has been afebrile. Patient does have poor oral intake. Chest x-ray showed acute cardiopulmonary disease involving the left lung base with small effusion and atelectasis/pneumonia. Procalcitonin level is 0.05. PT OT was consulted. Nephrology is on board. 08/20/2024 Patient is lying in the bed. Awake alert and oriented. No complaints of chest pain or shortness of breath. Patient remains in atrial fibrillation. Patient failed swallow evaluation and is currently made NPO. Also noted to have possible bony projection from the cervical spine making him difficult to swallow. Patient was seen by speech/swallow pathology. Orthopedic surgery was consulted for evaluation. Was started on IV hydration. Laboratory data reviewed. Cardiology and nephrology is on board. 08/21/2024 Patient is sitting in the chair. Awake alert and oriented. Patient is currently n.p.o. due to abnormal modified barium swallow. Unable to take metoprolol. Heart rate increased and patient went into A-fib with RVR. Started on Cardizem drip. Patient does not want any aggressive measures and refused to get PEG tube placement. Would like to talk to hospice care. Orthopedic surgery recommends no surgical intervention at this time. PHYSICAL EXAMINATION: GENERAL: The patient is confused, not in any acute distress. Well developed, well nourished. HEENT: Pupils are round and equally reacting to light. EOMI. No scleral icterus. No conjunctival pallor. Normocephalic, atraumatic. No pharyngeal erythema. No t hyromegaly. CARDIOVASCULAR: S1 and S2 present. No murmurs, rubs, or gallops. PULMONARY: Chest is clear to auscultation, no wheezing or crackles. ABDOMEN: Soft, nontender, nondistended, normoactive bowel sounds. No palpable organomegaly. MUSCULOSKELETAL: No joint swelling or deformity. EXTREMITIES: No cyanosis, clubbing, or pedal edema. NEUROLOGICAL: Gross neurological examination did not reveal any focal deficits. SKIN: No rashes. Assessment and plan Status post fall/recurrent falls and stayed on the ground for prolonged. Acute rhabdomyolysis Hypovolemic hyponatremia Alcohol use disorder Acute transaminitis Paroxysmal A-fib with RVR Nonanion gap metabolic acidosis Generalized weakness and debility Abnormal barium swallow. bulky bridging anterior hyperostosis of C to narrowing the hypopharynx with residuals and aspiration CODE STATUS DNR/DNI Plan: Patient is n.p.o. due to abnormal barium swallow Monitor vital signs Monitor CBC Monitor CMP Continue telemetry monitoring Avoid nephrotoxic agent Avoid hypotension Continue IV fluids. Patient is currently NPO. Continue with Lopressor. Eliquis is on hold due to recurrent falls. Continue CIWA protocol PT OT consulted Orthopedic surgery recommends no intervention at this time. Patient's daughter is at bedside. Patient to get any surgical intervention at this time. Patient wants to be DNR/DNI and considering hospice care. Labs and medication were reviewed.. Continue with symptomatic treatment. Monitor labs and vitals. DVT and GI prophylaxis. Dictation was produced using [employer] dictation software. please excuse any gr ammatical, word or spelling errors. Objective - Vital Signs Vital signs: Vital Signs Temp 99.1 F 08/21/24 20:00 Pulse 79 08/21/24 20:00 Resp 18 08/21/24 20:00 BP 126/55 08/21/24 20:00 Pulse Ox 97 08/21/24 20:00 FiO2 Intake & Output 08/21/24 08/21/24 08/22/24 06:59 18:59 06:59 Intake Total 10 20 0 Output Total 1275 400 Balance -1265 -380 0 Weight 87.5 kg Intake: IV 10 20 Invasive Line 5 10 20 Oral 0 Output: Urine 1275 400 Other: Voiding Method Indwelling Catheter Indwelling Catheter Indwelling Catheter - Labs CBC & Chem 7: 08/19/24 05:25 08/21/24 06:27 Labs: Abnormal Lab Results - Last 24 Hours (Table) 08/21/24 Range/Units 06:27 Sodium 136 L (137-145) mmol/L BUN 8 L (9-20) mg/dL Creatinine 0.60 L (0.66-1.25) mg/dL Calcium 8.3 L (8.4-10.2) mg/dL Creatine Kinase 433 H (55-170) U/L Assessment and Plan Time with Patient: Greater than 30
[2024-08-22 06:48] LABS: Basophils % (A) 0 %; Eosinophils # (A) 0.1 k/uL (0-0.7); Eosinophils % (A) 1 %; HCT 38.3 % (39.0-53.0); HGB 12.8 gm/dL (13.0-17.5); Lymphocytes # (A) 0.5 k/uL (1.0-4.8); Lymphocytes % (A) 10 %; MCH 33.7 pg (25.0-35.0); MCHC 33.4 g/dL (31.0-37.0); Mean Platelet Volume 8.1; Monocytes # (A) 0.2 k/uL (0-1.0); Monocytes % (A) 5 %; Neutrophils # (A) 3.7 k/uL (1.3-7.7); Neutrophils % (A) 82 %; Platelet Count 138 k/uL (150-450); RBC 3.79 m/uL (4.30-5.90); RDW 12.3 % (11.5-15.5); WBC 4.5 k/uL (3.8-10.6)
[2024-08-22 07:04] LABS: African American GFR (CKD) >90 (>60 ml/min/1.73 sqM); Anion Gap 2 mmol/L; Blood Urea Nitrogen 11 mg/dL (9-20); Calcium 8.1 mg/dL (8.4-10.2); Carbon Dioxide 25 mmol/L (22-30); Chloride 108 mmol/L (98-107); Glucose 82 mg/dL (74-99); Non-African American GFR(CKD) >90 (>60 ml/min/1.73 sqM); Sodium 135 mmol/L (137-145)
[2024-08-22 09:59] VITALS: BMI 29.9
[2024-08-22 10:33] VITALS: BP 137/73; PULSE 76; TEMP 97.9
--- NOTE | 2024-08-22 10:40 | P.PN ---
Subjective Patient is seen in follow-up for rhabdomyolysis. CK level improved from admission and stable at 433 yesterday. Renal function at baseline. Receiving normal saline. Plan is to go home on hospice today. Son present at bedside. Vital signs are stable. General: No acute distress. HEENT: Head exam is unremarkable. LUNGS: No audible rhonchi or wheezes. HEART: Rate and Rhythm are regular. ABDOMEN: No distention. EXTREMITITES: No edema. Objective - Vital Signs Vital signs: Vital Signs Temp 97.9 F 08/22/24 08:00 Pulse 76 08/22/24 08:00 Resp 16 08/22/24 08:00 BP 137/73 08/22/24 08:00 Pulse Ox 97 08/22/24 08:00 FiO2 Intake & Output 08/21/24 08/22/24 08/22/24 18:59 06:59 18:59 Intake Total 20 0 Output Total 400 625 Balance -380 -625 Weight 89.5 kg 89.5 kg Intake: IV 20 Invasive Line 5 20 Oral 0 Output: Urine 400 625 Other: Voiding Method Indwelling Catheter Indwelling Catheter Indwelling Catheter - Labs CBC & Chem 7: 08/22/24 06:05 08/22/24 06:05 Labs: Abnormal Lab Results - Last 24 Hours (Table) 08/22/24 08/22/24 Range/Units 06:05 06:05 RBC 3.79 L (4.30-5.90) m/uL Hgb 12.8 L (13.0-17.5) gm/dL Hct 38.3 L (39.0-53.0) % MCV 101.0 H (80.0-100.0) fL Plt Count 138 L (150-450) k/uL Lymphocytes # 0.5 L (1.0-4.8) k/uL Sodium 135 L (137-145) mmol/L Chloride 108 H (98-107) mmol/L Creatinine 0.54 L (0.66-1.25) mg/dL Calcium 8.1 L (8.4-10.2) mg/dL Assessment and Plan Plan: Assessment: 1. Rhabdomyolysis secondary to immobility. CK levels improved. UA with large blood and no RBCs suggestive of myoglobinuria. 2. [place] metabolic acidosis secondary to IV fluids. Improved. 3. A-fib with RVR maintained on Cardizem drip. Unable to take oral meds. 4. Hyponatremia secondary to hypotonic fluid infusion. Improved. 5. Chronic systolic CHF ejection fraction of 45 to 50% with mild pulmonary hypertension, mild to moderate mitral and mild tricuspid and aortic regurgitation. Plan: Maintain normal saline. Plan is to go home on hospice today. I will sign off. Please call with any questions or concerns.
--- NOTE | 2024-08-22 11:07 | P.PN ---
Subjective Progress Note Date: 08/22/24 HISTORY OF PRESENT ILLNESS: This is a 68-year-old male with a past medical history significant for atrial fibrillation, hyperlipidemia, hypertension, former nicotine dependence, alcohol abuse. Patient does not follow with a ancillary services manager therapy. We have been asked to see the patient in consultation for A-fib with RVR. Patient examined at the bedside in the emergency room. Apparently, the patient tripped and fell about 3 days ago. He was unable to get up and laid on the floor for 3 days. He was found by his daughter. Patient does not believe that he lost consciousness. Patient was found to have rhabdomyolysis. Patient additionally was found to be in A-fib with RVR. He is currently on Cardizem drip at 5 mg an hour. Bedside telemetry reveals atrial fibrillation with a heart rate in the 90s. Patient is a former cigarette smoker. Does report daily alcohol use. He states that he drinks at least a sixpack a day. DIAGNOSTICS: - EKG reveals A-fib with RVR - Chest xray negative for acute process - Laboratory data: WBC 3.9. Hemoglobin 12.3. Platelet count 93. Sodium 132. Potassium 3.6. BUN 21. Creatinine 0.67. Magnesium 2.0. Creatinine kinase 7299. Repeat 2245. Troponin 0.054. 0.056. 0.046. - Current home cardiac medications include Eliquis 5 mg twice a day, Lipitor 20 mg at night, metoprolol tartrate 25 mg daily, lisinopril 40 mg daily - Most recent echocardiogram obtained in December 2021 revealed ejection fraction 60 to 65%, mild aortic regurgitation, mild aortic stenosis, mild tricuspid regurgitation - Cardiac catheterization history: Unknown 08/17/2024 Patient examined this morning at the bedside. Patient is feeling member is present. Patient currently denies chest pain or pressure. He denies shortness of breath. He remains in atrial fibrillation with heart rate in the 80s. Echocardiogram completed revealing ejection fraction 45 to 50% with mild to moderate MR. 08/18/24 Patient is seen and examined. He is sleeping soundly. He has been maintained on Eliquis 5 mg twice daily as well as Lopressor 25 mg twice daily. Patient remains in atrial fibrillation with rate control in the 80s and 90s, blood pressure 105/71, pulse ox 97% on room air. Repeat blood work reveals WBC 3.4, hemoglobin 13.1, creatinine 0.58, potassium 3.6. Liver enzymes are improved w ith AST of 97 and ALT 82. CK is down to 422.. 08/19/24 Patient is seen and examined. He remains in atrial fibrillation with controlled rhythm. Family member is at bedside and discussed use of Eliquis. Patient apparently has frequent falls at home and recommendations will be to discontinue Eliquis at discharge. Heart rate is in the 70s to 90s, blood pressure 118/76, pulse ox 97% on room air. Repeat blood work reveals hemoglobin of 13, creatinine 0.54. AST 64 and ALT 67. Chest x-ray reveals left lung base opacity. Plan is for discharge to ECF. 08/20/24 Patient seen and examined. Patient remains in atrial fibrillation with controlled rhythm. Yesterday, we discontinued Eliquis due to patient's history of falls and EtOH abuse. Patient is maintained on metoprolol 25 mg twice daily. 08/21/2024 Yesterday, cardiology has signed off patient as his rhythm was atrial fibrillation with a controlled rate on the current medications. However, patient was found to have abnormal modified barium swallow finding bulky bridging anterior hyperostosis of C to narrowing the hypopharynx with residuals and aspiration and is now NPO. His heart rate is running no elevated with minimal activity up to the 160s, currently running 126 at rest. Patient remains in atrial fibrillation. If he does not want to pursue any aggressive treatment, other option is comfort care. Patient is stating that he does not want to have anything like a PEG tube placed. He has been seen by orthopedics for central canal stenosis cervical spondylosis to generative disc disease and no surgical intervention was planned at this time. Patient seen and examined. He is currently in a sinus rhythm and converted last evening. He remains n.p.o. and plan is for discharge home with hospice. PHYSICAL EXAM: VITAL SIGNS: Reviewed. GENERAL: Well-developed in no acute distress. HEENT: Head is normocephalic. Pupils are equal, round. Sclerae anicteric. Mucous membranes of the mouth are moist. Neck supple. No JVD or thyromegaly LUNGS: Respirations even and unlabored. Lungs essentially clear to auscultation bilaterally. HEART: Irregular rate and rhythm. S1 and S2 heard. ABDOMEN: Soft. Nondistended. Nontender. EXTREMITIES: No clubbing or cyanosis. Peripheral pulses intact. No lower extremity edema. Patient with bruises and erythema to right side of body. ASSESSMENT: Atrial fibrillation with RVR, likely persistent, currently rate controlled Rhabdomyolysis, improving Elevated troponins, flat, type II NE, no evidence of acute coronary syndrome New onset mild cardiomyopathy EF 45-50, suspect nonischemic Hypertension Hyperlipidemia Former nicotine dependence Alcohol abuse, patient drinks at least 6 beers daily Frequent falls per patient Failed modified barium swallow, n.p.o. status PLAN: Patient is unable to take any oral medications. Plan is for discharge home with hospice today. Cardiology will sign off this case and follow on an as-needed basis. Please reconsult for any new concerns. Patient may follow-up in the office in one to 2 weeks.. Nurse practitioner note has been reviewed by physician. Signing provider agrees with the documented findings, assessment, and plan of care documented by PRODUCTION CELL LEADER as a scribe. Objective - Vital Signs Vital signs: Vital Signs Temp 99.1 F 08/21/24 20:00 Pulse 69 08/22/24 04:00 Resp 16 08/22/24 04:00 BP 119/72 08/22/24 04:00 Pulse Ox 98 08/22/24 04:00 FiO2 Intake & Output 08/21/24 08/22/24 08/22/24 18:59 06:59 18:59 Intake Total 20 0 Output Total 400 625 Balance -380 -625 Weight 89.5 kg Intake: IV 20 Invasive Line 5 20 Oral 0 Output: Urine 400 625 Other: Voiding Method Indwelling Catheter Indwelling Catheter - Labs CBC & Chem 7: 08/22/24 06:05 08/22/24 06:05 Labs: Abnormal Lab Results - Last 24 Hours (Table) 08/21/24 08/22/24 08/22/24 Range/Units 06:27 06:05 06:05 RBC 3.79 L (4.30-5.90) m/uL Hgb 12.8 L (13.0-17.5) gm/dL Hct 38.3 L (39.0-53.0) % MCV 101.0 H (80.0-100.0) fL Plt Count 138 L (150-450) k/uL Lymphocytes # 0.5 L (1.0-4.8) k/uL Sodium 136 L 135 L (137-145) mmol/L Chloride 108 H (98-107) mmol/L BUN 8 L (9-20) mg/dL Creatinine 0.60 L 0.54 L (0.66-1.25) mg/dL Calcium 8.3 L 8.1 L (8.4-10.2) mg/dL Creatine Kinase 433 H (55-170) U/L
--- NOTE | 2024-08-25 05:57 | P.DS ---
Providers Date of admission: 08/15/24 14:45 Expected date of discharge: 08/22/24 Attending physician: Dorinda Alfred Consults: 08/15/24 14:43 Consult Physician Routine Consulting Provider: Jacky Avila Consult Reason/Comments: rabdo Do you want consulting provider notified?: Yes 08/16/24 10:26 Consult Physician Routine Consulting Provider: Ken Carbajal Consult Reason/Comments: A-fib with RVR Do you want consulting provider notified?: Yes 08/18/24 13:09 Consult Physician Routine Consulting Provider: Psychiatry - [facility] Psychiatry Consult Reason/Comments: depression, etoh, add meds for depression? Do you want consulting provider notified?: Already Contacted 08/20/24 12:20 Consult Physician Urgent Consulting Provider: Henry Jain Consult Reason/Comments: Possible body growth C-spine, difficulty swallowing Do you want consulting provider notified?: Yes 08/21/24 09:22 Consult Physician Routine Consulting Provider: Ken Carbajal Consult Reason/Comments: afib rvr/ NPO Do you want consulting provider notified?: Already Contacted Primary care physician: Halie Archuleta Hospital Course: Final diagnosis Status post fall/recurrent falls and stayed on the ground for prolonged. Acute rhabdomyolysis, nontraumatic secondary to fall with prolonged downtime Hypovolemic hyponatremia, improved Alcohol use disorder Acute transaminitis Paroxysmal A-fib with RVR Nonanion gap metabolic acidosis Generalized weakness and debility Abnormal barium swallow. bulky bridging anterior hyperostosis of C to narrowing the hypopharynx with residuals and aspiration CODE STATUS DNR/DNI Discharge disposition Patient is being discharged in a stable condition with guarded prognosis to home with hospice. Patient will follow-up with Dr. Archuleta in the outpatient setting upon discharge. Patient is to continue with current medications as mentioned below. Patient is refusing PEG tube placement and will be going home with [facility] hospice services. Total time taken is greater than 35 minutes. Hospital course This is a 69-year-old male who was recently admitted with fall and prolonged downtime with acute rhabdomyolysis being closely monitored. Patient evaluated by speech as well during hospitalization noted to have significant epiglottic issues and aspirating on everything. Patient was recommended a PEG tube although patient is refusing and requesting hospice. Patient and family met with [facility] and are agreeable and would like to go home. Please refer to other consultation notes for further HPI. Currently no reports of chest pain, shortness of breath, or palpitations. Patient is afebrile. No reports of nausea or vomiting and patient has been n.p.o. Patient will be discharged home with hospice services today. Overall guarded prognosis. Physical exam: Gen: This is a 69-year-old male who is awake, alert and oriented x 2, well- developed, elderly appearing, obese HEENT: Head is atraumatic, normocephalic. Pupils equal, round. Sclerae is anicteric. NECK: Supple. No JVD. No lymphadenopathy. No thyromegaly. LUNGS: Clear to auscultation. No wheezes or rhonchi. No intercostal retractions. HEART: S1, S2 are muffled ABDOMEN: Soft. Bowel sounds are present. No masses. No tenderness. EXTREMITIES: No pedal edema. No calf tenderness. NEUROLOGICAL: Patient is awake, alert and oriented x2. Cranial nerves 2 through 12 are grossly intact. Please refer to medication reconciliation sheet for a list of medications. The impression and plan of care has been dictated by Amrita Chandra, Nurse Practitioner as directed. Dr. Rubio MD I have performed a history and examination and MDM of this patient, discussed the same with the dictator, and agree with the dictator's assessment and plan as written ,documented as a scribe. Based on total visit time, I have performed more than 50% of the visit. Patient Condition at Discharge: Poor Plan - Discharge Summary Discharge Rx Participant: No New Discharge Prescriptions: New Albuterol Inhaler [Ventolin Hfa Inhaler] 2 puff INHALATION RT-TID each Metoprolol Tartrate [Lopressor] 25 mg PO BID 30 Days #60 tablet Docusate [Colace] 100 mg PO BID cap Continue Loratadine [Claritin] 10 mg PO DAILY Atorvastatin Calcium [Lipitor] 20 mg PO HS Discontinued Apixaban [Eliquis] 5 mg PO BID 30 Days #60 tab lisinopriL 40 mg PO DAILY Metoprolol Tartrate [Lopressor] 25 mg PO DAILY Discharge Medication List Atorvastatin Calcium [Lipitor] 20 mg PO HS 12/23/21 [History] Loratadine [Claritin] 10 mg PO DAILY 12/23/21 [History] Albuterol Inhaler [Ventolin Hfa Inhaler] 2 puff INHALATION RT-TID each 08/22/24 [Rx] Docusate [Colace] 100 mg PO BID cap 08/22/24 [Rx] Metoprolol Tartrate [Lopressor] 25 mg PO BID 30 Days #60 tablet 08/22/24 [Rx] Follow up Appointment(s)/Referral(s): Janelle Paula MD [STAFF PHYSICIAN] - 1 Week Beatriz Cantu MD [REFERRING] - 1-2 days Henry Jain DO [Doctor of Osteopathic Medicine] - As Needed Patient Instructions/Handouts: Hospice (DC), Hospice Care (GEN) Activity/Diet/Wound Care/Special Instructions: Patient is going home with [facility] hospice Activity as tolerated Continue supportive care Continue pleasure feeds Discharge Disposition: STILL PT- FOR INTERIM BILLING
== END 2024-08-22 12:30 | disposition hospice, home (50) | DRG 564 ==
LOC: EC 11:54 → 3SCARD 14:45
PROVIDERS: ADMIT Hospitalist; ATTEND Hospitalist
DX: T79.6XXA Traumatic ischemia of muscle, initial encounter (principal); I21.A1 Myocardial infarction type 2; J18.9 Pneumonia, unspecified organism; J44.0 Chronic obstructive pulmonary disease with (acute) lower respiratory infection; I50.22 Chronic systolic (congestive) heart failure; I42.8 Other cardiomyopathies; I48.0 Paroxysmal atrial fibrillation; Z51.5 Encounter for palliative care; Z66 Do not resuscitate; E87.20 Acidosis, unspecified; R82.1 Myoglobinuria; E87.1 Hypo-osmolality and hyponatremia; R44.3 Hallucinations, unspecified; R13.10 Dysphagia, unspecified; I27.20 Pulmonary hypertension, unspecified; I11.0 Hypertensive heart disease with heart failure; I08.2 Rheumatic disorders of both aortic and tricuspid valves; E78.5 Hyperlipidemia, unspecified; R29.6 Repeated falls; M85.88 Other specified disorders of bone density and structure, other site; M47.812 Spondylosis without myelopathy or radiculopathy, cervical region; M48.02 Spinal stenosis, cervical region; E86.1 Hypovolemia; Z79.01 Long term (current) use of anticoagulants; M48.12 Ankylosing hyperostosis [Forestier], cervical region; N40.0 Benign prostatic hyperplasia without lower urinary tract symptoms; S80.211A Abrasion, right knee, initial encounter; M50.30 Other cervical disc degeneration, unspecified cervical region; R31.9 Hematuria, unspecified; R53.81 Other malaise; M25.78 Osteophyte, vertebrae; W01.0XXA Fall on same level from slipping, tripping and stumbling without subsequent striking against object, initial encounter; Z87.891 Personal history of nicotine dependence; Y92.009 Unspecified place in unspecified non-institutional (private) residence as the place of occurrence of the external cause; Y90.0 Blood alcohol level of less than 20 mg/100 ml; Z91.81 History of falling; Z79.899 Other long term (current) drug therapy; F10.20 Alcohol dependence, uncomplicated
CPT/HCPCS: 36415; 51702; 70450; 71045; 71046; 72125; 72170; 74230; 80048; 80053; 80320; 81001; 82140; 82550; 82607; 82747; 83605; 83690; 83735; 83880; 84100; 84145; 84443; 84484; 85025; 85610; 85730; 93005; 93306; 94640; 94760; 96361; 96374; 96375; 99285